=== PATIENT | female | born 1970 | race Caucasian/White ===

== ENCOUNTER 2024-10-26 16:39 | Emergency (ER) | payer OTHER, SELFPAY ==
[2024-10-26] VITALS (11 sets, daily range): BP systolic 124–156; BP diastolic 83–91; PULSE 80–98; RESP 18–25; TEMP 36.1; O2SAT 96–100; BMI 30.4
[2024-10-26 17:47] LABS: Adenovirus Not Detected (Not Detect); B. parapertussis Not Detected (Not Detecte); Bordetella pertussis Not Detected (Not Detect); Chlamydophila pneumoniae Not Detected (Not Detect); Coronavirus 229E Not Detected (Not Detect); Coronavirus HKU1 Not Detected (Not Detect); Coronavirus NL 63 Not Detected (Not Detect); Coronavirus OC43 Not Detected (Not Detect); Human Metapneumovirus Not Detected (Not Detect); Human Rhinovirus/Enterovirus Not Detected (Not Detect); Influenza A Not Detected (Not Detect); Influenza B Not Detected (Not Detect); Mycoplasma pneumoniae Not Detected (Not Detect); Parainfluenza Virus 1 Not Detected (Not Detect); Parainfluenza Virus 2 Not Detected (Not Detect); Parainfluenza Virus 3 Not Detected (Not Detect); Parainfluenza Virus 4 Not Detected (Not Detect); Respiratory Syncytial Virus Not Detected (Not Detect); SARS- CoV-2 Not Detected (Not Detecte)
--- NOTE | 2024-10-26 19:33 | ED_ITS ---
HPI - URI/Sore Throat General Chief Complaint: Upper Respiratory Symptoms Stated Complaint: coughing, SOB, getting worse Time Seen by Provider: 10/26/24 19:28 Source: patient Mode of arrival: Ambulatory History of Present Illness HPI Narrative: Patient is a 54-year-old female who is an active smoker has severe agoraphobia, does not leave the house presenting today with increasing shortness of breath. She reports that she has no longer able to lay down because she can not breathe. She reports that her lips turned blue. She feels like her legs are swelling. She denies any sort of chest pain. She is coughing little she generally does not feel well. She feels like her thyroid is also a more. She does not go to the doctors. She has been using an [id number] albuterol inhaler which he says was working but is no longer working. Related Data Previous Rx's Medication Instructions Recorded albuterol sulfate 90 mcg/actuation 2 puff inhalation Q4-6H PRN 10/26/24 aerosol inhaler shortness of breath or wheezing #8.5 grams prednisone 20 mg tablet 40 mg (2 x 20 mg) PO DAILY #10 tabs 10/26/24 Allergies Allergy/AdvReac Type Severity Reaction Status Date / Time codeine Allergy Intermediate Hives Verified 10/26/24 16:43 Patient History Social History Smoking Status: Current every day smoker Smoking Status: Current every day smoker tobacco type: cigarettes Exam Initial Vital Signs Initial Vital Signs: Vital Signs Temperature 96.9 F L 10/26/24 16:44 Pulse Rate 97 H 10/26/24 16:44 Respiratory Rate 18 10/26/24 16:44 Blood Pressure 156/86 H 10/26/24 16:44 Pulse Oximetry 96 10/26/24 16:44 Oxygen Delivery Method Room Air 10/26/24 16:44 GENERAL: Alert pleasant 54 year female [id number]-[id number] respiratory distress and in no acute distress. HEENT: Head atraumatic,EOMI, pupils reactive, face symmetric, moist mucous membranes NECK: Slight thyroid goiter CARDIOVASCULAR: Regular rate and rhythm without murmurs, rubs or gallops. RESPIRATORY: Decreased breath sounds bilateral obvious conversational dyspnea obvious orthopnea which does not improve with sitting up. Minimal peripheral edema ABDOMEN: Soft, nontender. Normoactive bowel sounds all 4 quadrants. No guarding or rebound. EXTREMITIES: Normal range of motion, no clubbing or edema. Neurovascularly intact NEUROLOGICAL: Alert and oriented x4.Normal gait and speech. Cranial nerves II through XII grossly intact. SKIN: Warm, dry, no laceration, no petechiae, no rashes or lesions. Course Orders Ordered: ED Orders 10/26/24 19:55 Complete Blood Count AUTO DIFF Stat Comprehensive Metabolic Panel Stat D Dimer Stat Lipase Stat NT-proBNP (BNP-Adult 18+) Stat PTT Partial Thromboplastin [place] Stat Prothrombin Time INR Stat TSH [Thyroid Stimulating Hormone] Stat Troponin & CK Cardiac Panel Stat Discontinued Medications Albuterol (Albuterol Hfa Prepack) 1 box MISC DIRECTED ONE Stop: 10/26/24 21:15 Albuterol/Ipratropium (Albuterol/Ipratropium 3 Ml Ampul) 3 ml INH NOW ONE Stop: 10/26/24 19:34 Last Admin: 10/26/24 19:46 Dose: 3 ml Documented By: MALORIE Methylprednisolone (Methylprednisolone 125 Mg/2 Ml Vial) 125 mg IV NOW ONE Stop: 10/26/24 19:34 Last Admin: 10/26/24 19:54 Dose: 125 mg Documented By: MPO Vital Signs Vital signs: Vital Signs - 8 hr 10/26/24 21:00 Pulse Rate 80 Respiratory Rate 18 Pulse Oximetry 97 MDM - URI/Sore Throat Lab Data 10/26/24 19:55 10/26/24 19:55 Labs: Lab Results 10/26/24 10/26/24 Range/Units 16:52 19:55 WBC 10.0 (4.5-11.0) X10^3/uL RBC 5.40 H (4.0-5.2) X10^6/uL Hgb 15.7 (12.0-16.0) g/dL Hct 47.0 H (36-46) % MCV 86.9 (80-100) fL MCH 29.0 (26-34) PG MCHC 33.4 (30-36) % RDW 14.0 (11.6-14.8) % Plt Count 301 (150-400) X10^3/uL Neut % (Auto) 63.4 (50-75) % Lymph % (Auto) 23.0 L (25-40) % [place] % (Auto) 5.2 (3-14) % Eos % (Auto) 7.1 H (2-4) % Baso % (Auto) 1.3 (0-2) % Neut # (Auto) 6300 (4951-3655) /uL Lymph # (Auto) 2300 (4744-6566) /uL [place] # (Auto) 500 (0-900) /uL Eos # (Auto) 700 H (0-450) /uL Baso # (Auto) 100 (0-100) /uL PT 11.8 (9.4-12.5) SECONDS INR 1.0 (0.9-1.3) APTT 35 (25.1-36.5) SECONDS D-Dimer 555 H (<500) ng/ml Sodium 138 (137-145) mmol/L Potassium 4.1 (3.4-5.1) mmol/L Chloride 110 H (98-107) mmol/L Carbon Dioxide 17 L (22-32) mmol/L BUN 13 (7-17) mg/dL Creatinine 1.01 (0.52-1.04) mg/dL Estimated GFR > 60 (>60) mL/min BUN/Creatinine Ratio 12.9 (6-22) Glucose 102 H (70-100) mg/dL Calcium 10.0 (8.4-10.2) mg/dL Total Bilirubin 0.8 (0.2-1.3) mg/dL AST 34 (14-36) IU/L ALT 29 (<35) IU/L Alkaline Phosphatase 57 (38-126) U/L Total Creatine Kinase 57 (30-135) U/L Troponin I < 0.012 (0.01-0.034) ng/mL NT-Pro-B Natriuret Pep 61 (<125) pg/mL Total Protein 8.3 H (6.3-8.2) g/dL Albumin 4.8 (3.5-5.0) g/dL Globulin 3.5 (1.7-4.1) g/dL Albumin/Globulin Ratio 1.4 (1.0-2.8) Lipase 71 (23-300) U/L TSH 2.00 (0.47-4.68) uIU/mL Chlamy pneumoniae PCR Not detected (Not Detect) Adenovirus (PCR) Not detected (Not Detect) B. pertussis DNA (PCR) Not detected (Not Detect) B.parapertussis DNA PCR Not detected (Not Detecte) Coronavirus OC43 (PCR) Not detected (Not Detect) Coronavirus HKU1 (PCR) Not detected (Not Detect) Coronavirus 229E (PCR) Not detected (Not Detect) SARS-CoV-2 (PCR) Not detected (Not Detecte) Coronavirus NL63 (PCR) Not detected (Not Detect) Human Metapneumovir PCR Not detected (Not Detect) Influenza Type A (PCR) Not detected (Not Detect) Influenza Type B (PCR) Not detected (Not Detect) M. pneumoniae (PCR) Not detected (Not Detect) Parainfluenza 1 (PCR) Not detected (Not Detect) Parainfluenza 2 (PCR) Not detected (Not Detect) Parainfluenza 3 (PCR) Not detected (Not Detect) Parainfluenza 4 (PCR) Not detected (Not Detect) RSV (PCR) Not detected (Not Detect) Entero/Rhino (PCR) Not detected (Not Detect) Imaging Data Chest x-ray: Radiologist's Impression: PROCEDURE: XR CHEST 1V INDICATIONS: short of breath TECHNIQUE: One view of the chest was acquired. COMPARISON: None. FINDINGS: Surgical changes and devices: None. Lungs and pleura: Lungs are clear. No pleural effusions or pneumothorax. Mediastinum: Mediastinal contours appear normal. Heart size is normal. Bones and chest wall: No suspicious bony lesions. Overlying soft tissues appear unremarkable. IMPRESSION: No acute cardiopulmonary abnormality is seen. Approved by: Noemi Linares M.D.,Ph.D. on 10/26/2024 at 19:59 ECG Data Attestation: I personally reviewed and interpreted this ECG as follows: Prior ECG tracings: not available for review Interpretation: Normal sinus rhythm rate 80 ID interval 148 QRS [address] depression in V 3 , lead [address] elevations no priors to compare MDM Narrative Medical decision making narrative: MDM CC: Shortness of breath Complicating co-morbidities: Severe agoraphobia does not leave the house Medical records reviewed: None Differential considered: Respiratory illness COPD exacerbation CHF acute coronary syndrome pulmonary embolism, anemia Exam documented above, pertinent findings include: Patient does not have conversational dyspnea but does have some obvious orthopnea no significant lower extremity edema Lab Test results independently reviewed as above. Pertinent findings: WBC 10.0 hemoglobin 15.7 hematocrit 47 D-dimer 555 Sodium 138 potassium 4.1 chloride 110 bicarb 17 BUN 13 creatinine 1.0 glucose 102 Troponin negative, BNP 61 Respiratory panel negative Independently reviewed EKG as above: Sinus rhythm some slight ST depression in non can coordinate leans Imaging studies independently reviewed: No acute process Treatments: Albuterol Solu-Medrol Re-evaluations: Patient feeling significantly better after albuterol feels like she can take a deep breath lung sounds are more clear Discussion: Patient is a 54-year-old female presenting today with increasing shortness of breath. She is having signs and symptoms concerning for CHF with positive orthopnea and exertional dyspnea. She has not hypoxic she does not appear grossly fluid overload. BNP is 61. Troponin negative. She is a smoker and improved with albuterol and Solu-Medrol. I suspect that this is more of a COPD exacerbation. She was worried about her thyroid goiter as well her TSH is 2.0. Pulmonary embolism was considered however with years score in D-dimer less than 1000 this is unlikely. Does not need chest CT at this time. [email or web address] Algorithm for Pulmonary Embolism (PE) from [employer] on 10/27/2024 All calculations should be rechecked by clinician prior to use RESULT SUMMARY: PE excluded YEARS algorithm rules out PE (0.43% with symptomatic VTE during 3-month follow- up) INPUTS: patient ?> 0 = No Clinical signs of DVT ?> 0 = No Hemoptysis ?> 0 = No PE most likely diagnosis ?> 0 = No D-dimer >=,000 ng/mL FEU ?> 0 = No Discharge Plan Departure Patient Disposition: Home Clinical Impression: Upper respiratory infection Instructions: DI for Acute Bronchitis Activity Restrictions/Additional Instructions: *You have been diagnosed with upper respiratory infection COPD *What to do: At this time it is advised that you decrease and stop smoking. No need for antibiotics at this time *Continue to take medications as directed Prednisone 40 mg once a day for 5 days Albuterol inhaler with spacer 1-2 puffs every 4 hours if needed for shortness of breath I do recommend taking it 30 minutes before bed as well *Follow up with your primary care provider in 2-3 days or call [phone] *Return to ER if you should have increasing shortness of breath chest pain swelling or any new, worsening or concerning symptoms Prescriptions: New prednisone 20 mg tablet 40 mg PO DAILY Qty: 10 0RF albuterol sulfate 90 mcg/actuation HFA aerosol inhaler 2 puff INHALATION Q4-6H PRN (Reason: shortness of breath or wheezing) Qty: 8.5 0RF Stand Alone Forms: Patient Portal/API/Survey
[2024-10-26] MEDS: ALBUTEROL/IPRATROPIUM 3 ML AMPUL INH (19:46)
[2024-10-26] MEDS: methylPREDNISolone 125 MG/2 ML VIAL IV (19:54)
--- NOTE | 2024-10-26 20:01 | EKG_ITS ---
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
[2024-10-26 20:04] LABS: Add Manual Diff / Slide Review NO; Basophils Absolute Auto 100 /uL (0-100); Basophils Percent Auto 1.3 % (0-2); Eosinophils Absolute Auto 700 /uL (0-450); Eosinophils Percent Auto 7.1 % (2-4); Hemoglobin 15.7 g/dL (12.0-16.0); Lymphocytes Absolute Auto 2300 /uL (1100-4500); Mean Corpuscular HGB Conc 33.4 % (30-36); Mean Corpuscular Volume 86.9 fL (80-100); Monocytes Absolute Auto 500 /uL (0-900); Monocytes Percent Auto 5.2 % (3-14); Neutrophils Absolute Auto 6300 /uL (1500-7000); Neutrophils Percent Auto 63.4 % (50-75); Platelet Count 301 X10^3/uL (150-400)
[2024-10-26 20:08] LABS: Prothrombin Time 11.8 SECONDS (9.4-12.5)
[2024-10-26 20:10] LABS: D Dimer 555 ng/ml (<500)
[2024-10-26 20:11] LABS: PTT Partial Thromboplastin Tim 35 SECONDS (25.1-36.5)
[2024-10-26 20:13] LABS: Alanine Aminotransferase 29 IU/L (<35); Albumin 4.8 g/dL (3.5-5.0); Albumin Globulin Ratio 1.4 (1.0-2.8); Alkaline Phosphatase 57 U/L (38-126); Aspartate Aminotransferase 34 IU/L (14-36); BUN Creatinine Ratio 12.9 (6-22); Bilirubin Total 0.8 mg/dL (0.2-1.3); Blood Urea Nitrogen 13 mg/dL (7-17); Carbon Dioxide 17 mmol/L (22-32); Chloride 110 mmol/L (98-107); Creatine Kinase 57 U/L (30-135); Estimated Glomerular Filt Rate > 60 mL/min (>60); Globulin 3.5 g/dL (1.7-4.1); Glucose 102 mg/dL (70-100); HEMOLYSIS < 15 (0-50); Lipase 71 U/L (23-300); Potassium 4.1 mmol/L (3.4-5.1); Sodium 138 mmol/L (137-145); Total Protein 8.3 g/dL (6.3-8.2)
[2024-10-26 20:25] LABS: NT-proBNP (BNP-Adult 18+) 61 pg/mL (<125); Troponin I < 0.012 ng/mL (0.01-0.034)
== END 2024-10-26 21:26 | disposition home or self-care (01) ==
PROVIDERS: Emergency Medicine; Emergency Provider Emergency Medicine
DX: J06.9 Acute upper respiratory infection, unspecified (principal); J44.9 Chronic obstructive pulmonary disease, unspecified; F40.00 Agoraphobia, unspecified; F17.200 Nicotine dependence, unspecified, uncomplicated
CPT/HCPCS: 36415; 71045; 80053; 82550; 83690; 83880; 84443; 84484; 85025; 85379; 85610; 85730; 87633; 93005; 94640; 96374; 99284; J2919

== ENCOUNTER 2024-11-11 19:20 | Emergency (ER) | payer OTHER, SELFPAY ==
[2024-11-11] VITALS (11 sets, daily range): BP systolic 116–165; BP diastolic 64–102; PULSE 98–130; RESP 20–32; TEMP 36.5; O2SAT 92–99; BMI 29.5
--- NOTE | 2024-11-11 19:26 | EKG_ITS ---
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
--- NOTE | 2024-11-11 19:26 | DI.RAD.S_ITS ---
PROCEDURE: XR CHEST 1V INDICATIONS: Shortness of breath TECHNIQUE: One view of the chest was acquired. COMPARISON: [facility], , XR CHEST 1V, 10/26/2024, 19:33. FINDINGS: Surgical changes and devices: None. Lungs and pleura: Lungs are clear. No pleural effusions or pneumothorax. Mediastinum: Mediastinal contours appear normal. Heart size is normal. Bones and chest wall: No suspicious bony lesions. Overlying soft tissues appear unremarkable. IMPRESSION: No acute cardiopulmonary pathology. Dictated by: Particio Keith M.D. on 11/11/2024 at 20:43 Approved by: Patricio Keith M.D. on 11/11/2024 at 20:43
[2024-11-11] MEDS: ALBUTEROL/IPRATROPIUM 3 ML AMPUL INH (19:51)
[2024-11-11] MEDS: ALBUTEROL 2.5 MG/3 ML NEB (ADULT) 10 MG INH (19:53)
[2024-11-11 19:58] LABS: Add Manual Diff / Slide Review NO; Basophils Absolute Auto 0 /uL (0-100); Basophils Percent Auto 0.3 % (0-2); Eosinophils Absolute Auto 400 /uL (0-450); Eosinophils Percent Auto 2.7 % (2-4); Hematocrit 44.3 % (36-46); Hemoglobin 14.7 g/dL (12.0-16.0); Lymphocytes Absolute Auto 3000 /uL (1100-4500); Lymphocytes Percent Auto 20.4 % (25-40); Mean Corpuscular HGB Conc 33.2 % (30-36); Mean Corpuscular Hemoglobin 29.2 PG (26-34); Mean Corpuscular Volume 87.9 fL (80-100); Monocytes Absolute Auto 700 /uL (0-900); Monocytes Percent Auto 5.1 % (3-14); Neutrophils Absolute Auto 10400 /uL (1500-7000); Neutrophils Percent Auto 71.5 % (50-75); Platelet Count 296 X10^3/uL (150-400); Red Blood Cell Count 5.04 X10^6/uL (4.0-5.2); White Blood Cell Count 14.6 X10^3/uL (4.5-11.0)
[2024-11-11 20:06] LABS: Prothrombin Time 10.8 SECONDS (9.4-12.5)
[2024-11-11 20:09] LABS: Lactate (Lactic Acid) 1.1 mmol/L (0.7-2.1)
[2024-11-11 20:10] LABS: Alanine Aminotransferase 21 IU/L (<35); Albumin 4.5 g/dL (3.5-5.0); Albumin Globulin Ratio 1.5 (1.0-2.8); Alkaline Phosphatase 67 U/L (38-126); Aspartate Aminotransferase 26 IU/L (14-36); Bilirubin Total 0.5 mg/dL (0.2-1.3); Blood Urea Nitrogen 17 mg/dL (7-17); Calcium 9.9 mg/dL (8.4-10.2); Carbon Dioxide 19 mmol/L (22-32); Chloride 109 mmol/L (98-107); Estimated Glomerular Filt Rate 57 mL/min (>60); Globulin 3.1 g/dL (1.7-4.1); Glucose 120 mg/dL (70-100); HEMOLYSIS < 15 (0-50); Potassium 3.5 mmol/L (3.4-5.1); Sodium 139 mmol/L (137-145); Total Protein 7.6 g/dL (6.3-8.2)
[2024-11-11 20:22] LABS: NT-proBNP (BNP-Adult 18+) 146 pg/mL (<125); Troponin I < 0.012 ng/mL (0.01-0.034)
--- NOTE | 2024-11-11 20:47 | ED_ITS ---
HPI - SOB/Dyspnea General Chief Complaint: Shortness of Breath/Dyspnea Stated Complaint: difficulty breathing Time Seen by Provider: 11/11/24 19:27 Source: patient Mode of arrival: Ambulatory History of Present Illness HPI Narrative: 54-year-old female with history of tobacco abuse presents by private vehicle from home for shortness of breath. Patient states that she was at home when all of a sudden she had a coughing fit and ?my lungs closed and filled with fluid?. On arrival patient was tachycardic, tachypneic, saturating 92% on room air. Patient states that the same thing happened to her back in October. She states that she was told that she had COPD. She was discharged on steroids and an inhaler, and states that she was not had any issues with breathing since her discharge from the ER. 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 She has not seen a primary care doctor in many years. Related Data Previous Rx's Medication Instructions Recorded albuterol sulfate 90 mcg/actuation 2 puff inhalation Q4-6H PRN 10/26/24 aerosol inhaler shortness of breath or wheezing #8.5 grams prednisone 20 mg tablet 40 mg (2 x 20 mg) PO DAILY #10 tabs 10/26/24 albuterol sulfate 90 mcg/actuation 2 inh inhalation Q4-6H PRN 11/11/24 breath activated powder shortness of breath or wheezing #1 inhaler,sensor ea prednisone 20 mg tablet 40 mg (2 x 20 mg) PO DAILY #10 tabs 11/11/24 Allergies Allergy/AdvReac Type Severity Reaction Status Date / Time codeine Allergy Intermediate Hives Verified 11/11/24 19:32 Patient History Social History Smoking Status: Current every day smoker Smoking Status: Current every day smoker tobacco type: cigarettes Exam Initial Vital Signs Initial Vital Signs: Vital Signs Temperature 97.7 F 11/11/24 19:21 Pulse Rate 130 H 11/11/24 19:21 Respiratory Rate 30 H 11/11/24 19:21 Blood Pressure 165/102 H 11/11/24 19:21 Pulse Oximetry 92 11/11/24 19:21 Oxygen Delivery Method Room Air 11/11/24 19:21 Const: Awake, alert, anxious, uncomfortable Cardiac: Tachycardia, regular rhythm RESP: Tachypneic, increased work of breathing, very restricted air movement with wheezing Skin: Warm, Dry, intact, no rashes Neuro: AO x3, CN II-XII grossly intact, moves all extremities Course Orders Ordered: Discontinued Medications Albuterol (Albuterol 2.5 Mg/3 Ml Neb (Adult)) 10 mg INH NOW ONE Stop: 11/11/24 19:50 Last Admin: 11/11/24 19:53 Dose: 10 mg Documented By: Albuterol (Albuterol Hfa Prepack) 1 box MISC DIRECTED ONE Stop: 11/11/24 23:14 Last Admin: 11/11/24 23:22 Dose: 1 box Documented By: IOANA Albuterol/Ipratropium (Albuterol/Ipratropium 3 Ml Ampul) 3 ml INH NOW ONE Stop: 11/11/24 19:49 Last Admin: 11/11/24 19:51 Dose: 3 ml Documented By: Vital Signs Vital signs: Vital Signs - 8 hr 11/11/24 19:21 11/11/24 19:35 11/11/24 19:39 Temperature 97.7 F Pulse Rate 130 H 103 H 104 H Respiratory Rate 30 H 26 H Blood Pressure 165/102 H 165/102 H Pulse Oximetry 92 98 97 Oxygen Delivery Method Room Air Nasal Cannula Nasal Cannula Oxygen Flow Rate 2 2 11/11/24 19:43 11/11/24 19:43 11/11/24 20:00 Temperature Pulse Rate 106 H 98 H Respiratory Rate 26 H 26 H Blood Pressure 143/88 H Pulse Oximetry 97 98 Oxygen Delivery Method Nasal Cannula Nasal Cannula Oxygen Flow Rate 2 2 11/11/24 20:00 11/11/24 20:30 11/11/24 20:30 Temperature Pulse Rate 100 H Respiratory Rate 26 H Blood Pressure 130/64 116/72 Pulse Oximetry 99 Oxygen Delivery Method Room Air Oxygen Flow Rate 11/11/24 21:00 11/11/24 21:00 11/11/24 21:30 Temperature Pulse Rate 101 H Respiratory Rate 23 Blood Pressure 117/71 164/89 H Pulse Oximetry 96 Oxygen Delivery Method Room Air Oxygen Flow Rate 11/11/24 21:30 11/11/24 22:00 11/11/24 22:00 Temperature Pulse Rate 128 H 100 H Respiratory Rate 32 H 30 H Blood Pressure 129/75 Pulse Oximetry 96 94 Oxygen Delivery Method Room Air Room Air Oxygen Flow Rate MDM - SOB/Dyspnea Differential Diagnosis Differential diagnosis: Likely acute exacerbation of chronic obstructive airways disease, congestive heart failure and community acquired pneumonia Lab Data 11/11/24 19:30 11/11/24 19:30 Labs: Lab Results 11/11/24 Range/Units 19:30 WBC 14.6 H (4.5-11.0) X10^3/uL RBC 5.04 (4.0-5.2) X10^6/uL Hgb 14.7 (12.0-16.0) g/dL Hct 44.3 (36-46) % MCV 87.9 (80-100) fL MCH 29.2 (26-34) PG MCHC 33.2 (30-36) % RDW 14.0 (11.6-14.8) % Plt Count 296 (150-400) X10^3/uL Neut % (Auto) 71.5 (50-75) % Lymph % (Auto) 20.4 L (25-40) % [place] % (Auto) 5.1 (3-14) % Eos % (Auto) 2.7 (2-4) % Baso % (Auto) 0.3 (0-2) % Neut # (Auto) 35313 H (8345-7467) /uL Lymph # (Auto) 3000 (9563-5663) /uL [place] # (Auto) 700 (0-900) /uL Eos # (Auto) 400 (0-450) /uL Baso # (Auto) 0 (0-100) /uL PT 10.8 (9.4-12.5) SECONDS INR 1.0 (0.9-1.3) Sodium 139 (137-145) mmol/L Potassium 3.5 (3.4-5.1) mmol/L Chloride 109 H (98-107) mmol/L Carbon Dioxide 19 L (22-32) mmol/L BUN 17 (7-17) mg/dL Creatinine 1.13 H (0.52-1.04) mg/dL Estimated GFR 57 L (>60) mL/min BUN/Creatinine Ratio 15.0 (6-22) Glucose 120 H (70-100) mg/dL Lactate 1.1 (0.7-2.1) mmol/L Calcium 9.9 (8.4-10.2) mg/dL Total Bilirubin 0.5 (0.2-1.3) mg/dL AST 26 (14-36) IU/L ALT 21 (<35) IU/L Alkaline Phosphatase 67 (38-126) U/L Troponin I < 0.012 (0.01-0.034) ng/mL NT-Pro-B Natriuret Pep 146 H (<125) pg/mL Total Protein 7.6 (6.3-8.2) g/dL Albumin 4.5 (3.5-5.0) g/dL Globulin 3.1 (1.7-4.1) g/dL Albumin/Globulin Ratio 1.5 (1.0-2.8) Imaging Data Chest x-ray: Radiologist's Impression: PROCEDURE: XR CHEST 1V INDICATIONS: Shortness of breath TECHNIQUE: One view of the chest was acquired. COMPARISON: [facility], , XR CHEST 1V, 10/26/2024, 19:33. FINDINGS: Surgical changes and devices: None. Lungs and pleura: Lungs are clear. No pleural effusions or pneumothorax. Mediastinum: Mediastinal contours appear normal. Heart size is normal. Bones and chest wall: No suspicious bony lesions. Overlying soft tissues appear unremarkable. IMPRESSION: No acute cardiopulmonary pathology. Dictated by: Patricio Keith M.D. on 11/11/2024 at 20:43 Approved by: Patricio Keith M.D. on 11/11/2024 at 20:43 [facility] Narrative Medical decision making narrative: Shortness of breath and wheezing. States that she was told that she would COPD in the past but has not followed up with primary care or pulmonology. Patient initially in quite some distress on arrival. Respiratory therapy paged to evaluate the patient. Nebulizers administered. Patient reassessed after nebulizer administration. She states that she feels markedly better and her work of breathing has significantly improved. Repeat pulmonary exam shows that there are still trace and expiratory wheezes in the upper lung [place], however she has increased air movement and decreased work of breathing. Plan to observe patient for recurrence of wheezing or shortness of breath. Patient monitored for several hours. Ambulatory pulse ox stable on room air. She continues to state that her breathing is improved and she is eager to go home. She was out of her inhaler and is requesting a refill. Steroids, albuterol inhaler sent to pharmacy of choice. Patient was counseled on the importance of pulmonology follow up and a referral number was provided. Discharge Plan Departure Patient Disposition: Home Clinical Impression: Asthma exacerbation in COPD Instructions: DI for Chronic Obstructive Pulmonary Disease Activity Restrictions/Additional Instructions: Take the steroids for the next 5 days as prescribed. Use the inhaler as needed for shortness of breath. Since this is the 2nd time this has happened in his short. I do recommend that you follow up with a fire dispatcher. A referral number has been provided. Prescriptions: New albuterol sulfate 90 mcg/actuation aero powdr breath act w/sensor 2 inh inhalation Q4-6H PRN (Reason: shortness of breath or wheezing) Qty: 1 0RF prednisone 20 mg tablet 40 mg PO DAILY Qty: 10 0RF No Action prednisone 20 mg tablet 40 mg PO DAILY Qty: 10 0RF albuterol sulfate 90 mcg/actuation HFA aerosol inhaler 2 puff INHALATION Q4-6H PRN (Reason: shortness of breath or wheezing) Qty: 8.5 0RF Referrals: Marco Robins MD [Physician] - Stand Alone Forms: Patient Portal/API/Survey
--- NOTE | 2024-11-11 22:22 | PC.NURSE ---
Ambulation trial with patient on room air. Patient ambulated around the unit 2x with O2 sats at 93% RA. Dr. Cuong specner.
[2024-11-11] MEDS: ALBUTEROL HFA PREPACK 1 BOX MISC (23:22)
== END 2024-11-11 23:27 | disposition home or self-care (01) ==
PROVIDERS: Emergency Provider Emergency Medicine
DX: J45.901 Unspecified asthma with (acute) exacerbation (principal); J44.89 Other specified chronic obstructive pulmonary disease; F17.200 Nicotine dependence, unspecified, uncomplicated
CPT/HCPCS: 36415; 71045; 80053; 83605; 83880; 84484; 85025; 85610; 93005; 93010; 94640; 99284; J7613

== ENCOUNTER 2024-11-30 08:40 | Emergency (ER) | payer OTHER, SELFPAY ==
[2024-11-30] VITALS (10 sets, daily range): BP systolic 132–148; BP diastolic 66–87; PULSE 98–122; RESP 18–28; TEMP 36.9; O2SAT 92–98; BMI 31.3
--- NOTE | 2024-11-30 08:47 | ED.SOB ---
HPI - SOB/Dyspnea General Chief Complaint: Shortness of Breath/Dyspnea Stated Complaint: Wheezing Time Seen by Provider: 11/30/24 08:44 History of Present Illness HPI Narrative: 54-year-old female presents by EMS from home for shortness of breath. Patient was history of tobacco abuse, presumptive diagnosis of COPD. She has been seen twice in the last month for shortness of breath, 1st time 10/26 and then 2nd time by myself 11/11. Patient improved after nebulizers and steroids and has been instructed to follow up with primary care doctor's and pulmonology, however she states that she was not been successful in establishing a follow up appointment. She was out of her albuterol. Still actively smoking. EMS reports that when they arrived the patient was already on oxygen and they do not know her room air sats. Patient has extensive bilateral wheezing on exam. Related Data Previous Rx's Medication Instructions Recorded albuterol sulfate 90 mcg/actuation 2 puff inhalation Q4-6H PRN 10/26/24 aerosol inhaler shortness of breath or wheezing #8.5 grams prednisone 20 mg tablet 40 mg (2 x 20 mg) PO DAILY #10 tabs 10/26/24 albuterol sulfate 90 mcg/actuation 2 inh inhalation Q4-6H PRN 11/11/24 breath activated powder shortness of breath or wheezing #1 inhaler,sensor ea prednisone 20 mg tablet 40 mg (2 x 20 mg) PO DAILY #10 tabs 11/11/24 albuterol sulfate 90 mcg/actuation 1 inh inhalation Q4-6H PRN 11/30/24 breath activated powder shortness of breath or wheezing #1 inhaler,sensor ea prednisone 20 mg tablet 40 mg (2 x 20 mg) PO DAILY #10 tabs 11/30/24 Allergies Allergy/AdvReac Type Severity Reaction Status Date / Time codeine Allergy Intermediate Hives Verified 11/11/24 19:32 Patient History Social History Smoking Status: Current every day smoker Smoking Status: Current every day smoker tobacco type: cigarettes Exam Initial Vital Signs Initial Vital Signs: Vital Signs Pulse Rate 113 H 11/30/24 08:43 Pulse Oximetry 92 11/30/24 08:43 Const: Awake, alert, uncomfortable, nontoxic appearing Cardiac: Tachycardia, regular rhythm RESP: Loud, diffuse expiratory wheezes, speaking in complete sentences without dyspnea MSK: No edema, full range of motion, pulses equal Skin: Warm, Dry, intact, no rashes Neuro: AO x3, CN II-XII grossly intact, moves all extremities Course Orders Ordered: ED Orders 11/30/24 08:46 Chest [XR chest 1V] Stat EKG-12 Lead Stat 11/30/24 08:47 CBC Auto Diff [Complete Blood Count AUTO DIFF] Stat CMP [Comprehensive Metabolic Panel] Stat Covid-19 + FLU A/B + RSV - PCR Stat PT [Prothrombin Time INR] Stat Discontinued Medications Albuterol/Ipratropium (Albuterol/Ipratropium 3 Ml Ampul) 9 ml INH NOW ONE Stop: 11/30/24 08:47 Last Admin: 11/30/24 08:58 Dose: 9 ml Documented By: KELLY Methylprednisolone (Methylprednisolone 125 Mg/2 Ml Vial) 125 mg IV NOW ONE Stop: 11/30/24 08:47 Last Admin: 11/30/24 09:17 Dose: 125 mg Documented By: SHIRA Vital Signs Vital signs: Vital Signs - 8 hr 11/30/24 08:43 11/30/24 08:44 11/30/24 08:44 Temperature Pulse Rate 113 H 122 H Respiratory Rate Blood Pressure 132/87 Pulse Oximetry 92 98 Oxygen Delivery Method Oxygen Flow Rate Fraction of Inspired Oxygen 11/30/24 08:58 11/30/24 08:59 11/30/24 09:00 Temperature 98.4 F Pulse Rate 110 H 111 H 112 H Respiratory Rate 26 H 28 H 22 Blood Pressure 132/87 Pulse Oximetry 93 95 97 Oxygen Delivery Method Room Air Room Air Oxygen Flow Rate 0 Fraction of Inspired Oxygen 21 11/30/24 09:30 11/30/24 09:30 11/30/24 10:00 Temperature Pulse Rate 109 H 104 H Respiratory Rate 23 Blood Pressure 132/72 Pulse Oximetry 98 98 Oxygen Delivery Method Oxygen Flow Rate Fraction of Inspired Oxygen 11/30/24 10:00 11/30/24 10:30 11/30/24 10:45 Temperature Pulse Rate 100 H Respiratory Rate Blood Pressure 133/66 148/85 H Pulse Oximetry 96 Oxygen Delivery Method Oxygen Flow Rate Fraction of Inspired Oxygen 11/30/24 10:45 11/30/24 11:00 11/30/24 11:00 Temperature Pulse Rate 103 H 98 H Respiratory Rate 18 22 Blood Pressure 144/84 H Pulse Oximetry 97 96 Oxygen Delivery Method Room Air Oxygen Flow Rate Fraction of Inspired Oxygen MDM - SOB/Dyspnea Differential Diagnosis Differential diagnosis: Likely acute exacerbation of chronic obstructive airways disease, congestive heart failure and community acquired pneumonia Lab Data 11/30/24 08:47 11/30/24 08:47 Labs: Lab Results 11/30/24 Range/Units 08:47 WBC 19.8 H (4.5-11.0) X10^3/uL RBC 5.02 (4.0-5.2) X10^6/uL Hgb 14.5 (12.0-16.0) g/dL Hct 43.5 (36-46) % MCV 86.5 (80-100) fL MCH 28.9 (26-34) PG MCHC 33.4 (30-36) % RDW 14.0 (11.6-14.8) % Plt Count 274 (150-400) X10^3/uL Neut % (Auto) 79.4 H (50-75) % Lymph % (Auto) 13.0 L (25-40) % [place] % (Auto) 5.3 (3-14) % Eos % (Auto) 1.7 L (2-4) % Baso % (Auto) 0.6 (0-2) % Neut # (Auto) 87885 H (9097-3533) /uL Lymph # (Auto) 2600 (7461-1274) /uL [place] # (Auto) 1100 H (0-900) /uL Eos # (Auto) 300 (0-450) /uL Baso # (Auto) 100 (0-100) /uL PT 11.3 (9.4-12.5) SECONDS INR 1.0 (0.9-1.3) Sodium 138 (137-145) mmol/L Potassium 3.4 (3.4-5.1) mmol/L Chloride 109 H (98-107) mmol/L Carbon Dioxide 18 L (22-32) mmol/L BUN 14 (7-17) mg/dL Creatinine 1.17 H (0.52-1.04) mg/dL Estimated GFR 55 L (>60) mL/min BUN/Creatinine Ratio 12.0 (6-22) Glucose 154 H (70-100) mg/dL Calcium 10.4 H (8.4-10.2) mg/dL Total Bilirubin 0.5 (0.2-1.3) mg/dL AST 29 (14-36) IU/L ALT 26 (<35) IU/L Alkaline Phosphatase 65 (38-126) U/L Total Protein 7.8 (6.3-8.2) g/dL Albumin 4.5 (3.5-5.0) g/dL Globulin 3.3 (1.7-4.1) g/dL Albumin/Globulin Ratio 1.4 (1.0-2.8) SARS-CoV-2 (PCR) Negative (Negative) Influenza A (RT-PCR) Flu a negative (NEGATIVE) Influenza B (RT-PCR) Flu b negative (NEGATIVE) RSV (PCR) Negative (Negative) Point of Care Testing Glucose POC 142 Imaging Data Chest x-ray: Radiologist's Impression: PROCEDURE: XR CHEST 1V INDICATIONS: DYSPNEA TECHNIQUE: One view of the chest was acquired. COMPARISON: [facility], , XR CHEST 1V, 11/11/2024, 19:43. [facility], , XR CHEST 1V, 10/26/2024, 19:33. FINDINGS: Surgical changes and devices: None. Lungs and pleura: Lungs are clear. No pleural effusions or pneumothorax. Mediastinum: Mediastinal contours appear normal. Heart size is normal. Bones and chest wall: No suspicious bony lesions. Overlying soft tissues appear unremarkable. IMPRESSION: No acute cardiothoracic process. Dictated by: Alphonso Higginbotham M.D. on 11/30/2024 at 8:59 Approved by: Alphonso Higginbotham M.D. on 11/30/2024 at 9:00 ECG Data Interpretation: Sinus tachycardia at 110 beats per minute. Normal RI, no ST T wave changes, no STEMI MDM Narrative Medical decision making narrative: Shortness of breath and extensive wheezing. Patient continues to smoke, likely has COPD but has not followed up with pulmonology. Ran out of albuterol inhaler at home. On room air patient seems to be maintaining saturations of 98%. Respiratory therapy paged to administer nebulizers. Solu-Medrol ordered. Laboratory work reviewed. WBC count 19.8, hemoglobin 14.5, platelet count 274, sodium 138, potassium 3.4, creatinine 1.17, normal liver enzymes. WBC count possibly secondary to steroid use, patient has had several rounds of prednisone in the last month. There is no obvious source of infection for WBC count otherwise. Chest x-ray negative for acute findings. Patient's pulmonary exam significantly improved after DuoNeb treatments. Patient ambulatory throughout the emergency department with stable oxygen saturations. She states that she was feeling much better and is ready to go home. Patient was again counseled on the importance of following up with Pulmonary and primary care. Patient was already been given referrals and is in the process of trying to establish care with these specialists. Additional prednisone and albuterol inhaler sent to pharmacy of choice. Discharge Plan Departure Patient Disposition: Home Clinical Impression: Acute dyspnea, COPD (chronic obstructive pulmonary disease) Instructions: DI for Chronic Obstructive Pulmonary Disease Activity Restrictions/Additional Instructions: Your laboratory work and chest x-ray showed no sign of pneumonia. Continue to work on getting a primary and pulmonology follow up. Medications has been sent to your pharmacy. Prescriptions: New prednisone 20 mg tablet 40 mg PO DAILY Qty: 10 0RF albuterol sulfate 90 mcg/actuation aero powdr breath act w/sensor 1 inh inhalation Q4-6H PRN (Reason: shortness of breath or wheezing) Qty: 1 1RF No Action albuterol sulfate 90 mcg/actuation aero powdr breath act w/sensor 2 inh inhalation Q4-6H PRN (Reason: shortness of breath or wheezing) Qty: 1 0RF prednisone 20 mg tablet 40 mg PO DAILY Qty: 10 0RF prednisone 20 mg tablet 40 mg PO DAILY Qty: 10 0RF albuterol sulfate 90 mcg/actuation HFA aerosol inhaler 2 puff INHALATION Q4-6H PRN (Reason: shortness of breath or wheezing) Qty: 8.5 0RF Stand Alone Forms: Patient Portal/API/Survey
[2024-11-30 08:57] LABS: Add Manual Diff / Slide Review NO; Basophils Absolute Auto 100 /uL (0-100); Basophils Percent Auto 0.6 % (0-2); Eosinophils Absolute Auto 300 /uL (0-450); Eosinophils Percent Auto 1.7 % (2-4); Hematocrit 43.5 % (36-46); Hemoglobin 14.5 g/dL (12.0-16.0); Lymphocytes Absolute Auto 2600 /uL (1100-4500); Mean Corpuscular HGB Conc 33.4 % (30-36); Mean Corpuscular Hemoglobin 28.9 PG (26-34); Mean Corpuscular Volume 86.5 fL (80-100); Monocytes Absolute Auto 1100 /uL (0-900); Monocytes Percent Auto 5.3 % (3-14); Neutrophils Absolute Auto 15700 /uL (1500-7000); Neutrophils Percent Auto 79.4 % (50-75); Platelet Count 274 X10^3/uL (150-400); Red Blood Cell Count 5.02 X10^6/uL (4.0-5.2); White Blood Cell Count 19.8 X10^3/uL (4.5-11.0)
[2024-11-30] MEDS: ALBUTEROL/IPRATROPIUM 3 ML AMPUL 9 ML INH (08:58)
--- NOTE | 2024-11-30 08:59 | EKG_ITS ---
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
[2024-11-30 09:02] LABS: Prothrombin Time 11.3 SECONDS (9.4-12.5)
[2024-11-30 09:06] LABS: Alanine Aminotransferase 26 IU/L (<35); Albumin 4.5 g/dL (3.5-5.0); Albumin Globulin Ratio 1.4 (1.0-2.8); Alkaline Phosphatase 65 U/L (38-126); Aspartate Aminotransferase 29 IU/L (14-36); Bilirubin Total 0.5 mg/dL (0.2-1.3); Blood Urea Nitrogen 14 mg/dL (7-17); Calcium 10.4 mg/dL (8.4-10.2); Carbon Dioxide 18 mmol/L (22-32); Chloride 109 mmol/L (98-107); Estimated Glomerular Filt Rate 55 mL/min (>60); Globulin 3.3 g/dL (1.7-4.1); Glucose 154 mg/dL (70-100); HEMOLYSIS 30 (0-50); Potassium 3.4 mmol/L (3.4-5.1); Sodium 138 mmol/L (137-145); Total Protein 7.8 g/dL (6.3-8.2)
[2024-11-30] MEDS: methylPREDNISolone 125 MG/2 ML VIAL IV (09:17)
[2024-11-30 09:41] LABS: Influenza A - CEPHEID Flu A NEGATIVE (NEGATIVE); Influenza B - CEPHEID Flu B NEGATIVE (NEGATIVE); Respiratory Syncytial Virus Negative (Negative)
[2024-11-30 09:45] LABS: COVID-19 CEPHEID 4-PLEX PCR Negative (Negative)
--- NOTE | 2024-12-02 13:32 | PC.NURSE ---
attempted to help patient make an appointment with [facility]. left a messge [phone] Robins or another associate. Pt is concerned if they take her [facility] plan. I called patient back to inform her that I left a message on the machine. pt phone number is [phone]. Pt verbalized an understanding. She will follow up with the office as well.
== END 2024-11-30 11:19 | disposition home or self-care (01) ==
PROVIDERS: Emergency Provider Emergency Medicine
DX: R06.00 Dyspnea, unspecified (principal); R00.0 Tachycardia, unspecified; Z87.891 Personal history of nicotine dependence; J44.9 Chronic obstructive pulmonary disease, unspecified
CPT/HCPCS: 0241U; 36415; 71045; 80053; 85025; 85610; 93005; 94640; 96374; 99284; J2919

== ENCOUNTER 2024-12-13 16:47 | Emergency (ER) | payer OTHER, SELFPAY ==
[2024-12-13] VITALS (13 sets, daily range): BP systolic 111–139; BP diastolic 62–88; PULSE 88–111; RESP 15–28; TEMP 32–36.3; O2SAT 95–99
--- NOTE | 2024-12-13 16:57 | EKG_ITS ---
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
--- NOTE | 2024-12-13 16:57 | DI.RAD.S_ITS ---
PROCEDURE: XR CHEST 1V INDICATIONS: Shortness of breath TECHNIQUE: One view of the chest was acquired. COMPARISON: [facility], CR, XR CHEST 1V, 11/30/2024, 8:45. FINDINGS: Surgical changes and devices: None. Lungs and pleura: Lungs are clear. No pleural effusions or pneumothorax. Mediastinum: Mediastinal contours appear normal. Heart size is normal. Bones and chest wall: No suspicious bony lesions. Overlying soft tissues appear unremarkable. IMPRESSION: No acute cardiopulmonary abnormality is seen. Dictated by: Smith Chu M.D. on 12/13/2024 at 16:08 Approved by: Smith Chu M.D. on 12/13/2024 at 16:09
--- NOTE | 2024-12-13 16:59 | ED.SOB ---
HPI - SOB/Dyspnea <Lauren Meyer, DO - Last Filed: 12/17/24 18:21> General Chief Complaint: Shortness of Breath/Dyspnea Stated Complaint: SOB Time Seen by Provider: 12/13/24 16:57 Source: patient, EMS, RN notes reviewed and old records reviewed Mode of arrival: EMS Limitations: no limitations History of Present Illness HPI Narrative: 54-year-old female history of tobacco abuse, presumed COPD but states she is seen pulmonology who found nothing wrong was brought in by EMS for shortness of breath. Patient states started having issues earlier today was using inhaler regularly up to 10 times today without any improvement. EMS found her tripoding in her driveway in the low 80s at room air, tachypneic and tachycardic. Patient received Solu-Medrol 125 mg in the field, magnesium 2 DuoNebs initially and then was moved over to CPAP and these seemed to improve. EMS states her work of breathing has significantly improved patient indicates this as well. Patient denies any fevers cold cough or congestion recently. Denies any chest pain or pressure, does feel quite short of breath but somewhat improved after interventions. No nausea or vomiting. No issues with bowel movements, no urinary changes. No new swelling of extremities. Patient states not on any daily medications other than albuterol as needed. Denies any recent surgeries. Still uses tobacco daily, denies regular alcohol, no recreational drugs. Related Data Previous Rx's Medication Instructions Recorded albuterol sulfate 90 mcg/actuation 1 inh inhalation Q4-6H PRN 11/30/24 breath activated powder shortness of breath or wheezing #1 inhaler,sensor ea nicotine 7 mg/24 hr daily 1 patch transdermal Q24H #14 ea 12/11/24 transdermal patch umeclidinium 62.5 mcg-vilanterol 1 inh inhalation DAILY #60 ea 12/11/24 25 mcg/actuation powdr for inhalation (Anoro Ellipta) varenicline tartrate 0.5 mg (11)-1 See Rx Instructions PO PER PKG DIR 12/11/24 mg (42) tablets in a dose pack #53 ea (Chantix Starting Month Box) doxycycline hyclate 100 mg tablet 100 mg PO Q12H 5 days #10 tabs 12/13/24 prednisone 20 mg tablet 40 mg (2 x 20 mg) PO BID 5 days 12/13/24 #20 tabs Allergies Allergy/AdvReac Type Severity Reaction Status Date / Time codeine Allergy Intermediate Hives Verified 12/11/24 07:43 Review of Systems <Lauren Meyer DO - Last Filed: 12/17/24 18:21> Review of Systems ROS Unobtainable: All systems reviewed & are unremarkable except as noted in HPI and below Patient History <Lauren Meyer DO - Last Filed: 12/17/24 18:21> Social History Smoking Status: Current every day smoker Smoking Status: Current every day smoker tobacco type: cigarettes Exam <aLuren Meyer DO - Last Filed: 12/17/24 18:21> Narrative Exam Narrative: GENERAL: Alert and oriented x three, obese female in moderate distress. No diaphoresis. HEENT: Head normocephalic, atraumatic, EOMI, pupils reactive, face symmetric, moist mucous membranes NECK: Supple, full range of motion CARDIOVASCULAR: Regular rate and rhythm without murmurs, rubs or gallops. RESPIRATORY: Breath sounds equal bilaterally, patient has wheeze, sounds quite tight, mild tachypnea, no accessory muscle use. Patient arrived on CPAP from EMS and was transitioned over to our BiPAP. ABDOMEN: Soft, nontender. Normoactive bowel sounds all 4 quadrants. No guarding or rebound, rigidity, no mass : No CVA tenderness EXTREMITIES: Normal range of motion, no clubbing or edema. Neurovascularly intact NEUROLOGICAL: Cranial nerves II through XII grossly intact. Moving all extremities SKIN: Warm, dry, no petechiae, no rashes or lesions. Initial Vital Signs Initial Vital Signs: Vital Signs Temperature 97.4 F L 12/13/24 16:53 Pulse Rate 111 H 12/13/24 16:53 Respiratory Rate 28 H 12/13/24 16:53 Blood Pressure 139/88 12/13/24 16:53 Pulse Oximetry 99 12/13/24 16:53 Oxygen Delivery Method BiPAP 12/13/24 16:53 <Lex Mckenna DO - Last Filed: 12/13/24 19:53> Initial Vital Signs Initial Vital Signs: Vital Signs Temperature 97.4 F L 12/13/24 16:53 Pulse Rate 111 H 12/13/24 16:53 Respiratory Rate 28 H 12/13/24 16:53 Blood Pressure 139/88 12/13/24 16:53 Pulse Oximetry 99 12/13/24 16:53 Oxygen Delivery Method BiPAP 12/13/24 16:53 Course <Lauren Meyer, - Last Filed: 12/17/24 18:21> Orders Ordered: Discontinued Medications Albuterol (Albuterol 2.5 Mg/3 Ml Neb (Adult)) 20 mg INH NOW ONE Stop: 12/13/24 16:58 Last Admin: 12/13/24 17:07 Dose: 20 mg Documented By: JZF Doxycycline Hyclate (Doxycycline Hyclate 100 Mg Tablet) 100 mg PO NOW ONE Stop: 12/13/24 19:31 Last Admin: 12/13/24 19:52 Dose: 100 mg Documented By: AB Vital Signs Vital signs: Vital Signs - 8 hr 12/13/24 16:53 12/13/24 16:54 12/13/24 16:57 Temperature 97.4 F L Pulse Rate 111 H 111 H Respiratory Rate 28 H 24 Blood Pressure 139/88 Pulse Oximetry 99 99 Oxygen Delivery Method BiPAP BiPAP Fraction of Inspired Oxygen 12/13/24 17:00 12/13/24 17:00 12/13/24 17:03 Temperature Pulse Rate 106 H Respiratory Rate 27 H Blood Pressure 133/72 133/72 Pulse Oximetry 96 Oxygen Delivery Method Fraction of Inspired Oxygen 12/13/24 17:30 12/13/24 17:30 12/13/24 18:00 Temperature Pulse Rate 97 H 94 H Respiratory Rate 23 22 Blood Pressure 116/69 Pulse Oximetry 96 97 Oxygen Delivery Method Fraction of Inspired Oxygen 12/13/24 18:00 12/13/24 18:03 12/13/24 18:03 Temperature Pulse Rate 96 H Respiratory Rate 23 Blood Pressure 111/63 112/71 Pulse Oximetry 98 Oxygen Delivery Method Fraction of Inspired Oxygen 12/13/24 18:17 12/13/24 18:17 12/13/24 18:22 Temperature Pulse Rate 90 Respiratory Rate 22 Blood Pressure 121/65 121/65 Pulse Oximetry 99 Oxygen Delivery Method Fraction of Inspired Oxygen 30 12/13/24 18:30 12/13/24 18:30 12/13/24 19:00 Temperature Pulse Rate 90 Respiratory Rate 22 Blood Pressure 117/62 122/76 Pulse Oximetry 98 Oxygen Delivery Method Fraction of Inspired Oxygen 12/13/24 19:00 Temperature Pulse Rate 92 H Respiratory Rate 27 H Blood Pressure Pulse Oximetry 98 Oxygen Delivery Method Fraction of Inspired Oxygen <Lex Mckenna DO - Last Filed: 12/13/24 19:53> Orders Ordered: Discontinued Medications Albuterol (Albuterol 2.5 Mg/3 Ml Neb (Adult)) 20 mg INH NOW ONE Stop: 12/13/24 16:58 Last Admin: 12/13/24 17:07 Dose: 20 mg Documented By: JZF Doxycycline Hyclate (Doxycycline Hyclate 100 Mg Tablet) 100 mg PO NOW ONE Stop: 12/13/24 19:31 Last Admin: 12/13/24 19:52 Dose: 100 mg Documented By: AB Vital Signs Vital signs: Vital Signs - 8 hr 12/13/24 16:53 12/13/24 16:54 12/13/24 16:57 Temperature 97.4 F L Pulse Rate 111 H 111 H Respiratory Rate 28 H 24 Blood Pressure 139/88 Pulse Oximetry 99 99 Oxygen Delivery Method BiPAP BiPAP Fraction of Inspired Oxygen 12/13/24 17:00 12/13/24 17:00 12/13/24 17:03 Temperature Pulse Rate 106 H Respiratory Rate 27 H Blood Pressure 133/72 133/72 Pulse Oximetry 96 Oxygen Delivery Method Fraction of Inspired Oxygen 12/13/24 17:30 12/13/24 17:30 12/13/24 18:00 Temperature Pulse Rate 97 H 94 H Respiratory Rate 23 22 Blood Pressure 116/69 Pulse Oximetry 96 97 Oxygen Delivery Method Fraction of Inspired Oxygen 12/13/24 18:00 12/13/24 18:03 12/13/24 18:03 Temperature Pulse Rate 96 H Respiratory Rate 23 Blood Pressure 111/63 112/71 Pulse Oximetry 98 Oxygen Delivery Method Fraction of Inspired Oxygen 12/13/24 18:17 12/13/24 18:17 12/13/24 18:22 Temperature Pulse Rate 90 Respiratory Rate 22 Blood Pressure 121/65 121/65 Pulse Oximetry 99 Oxygen Delivery Method Fraction of Inspired Oxygen 30 12/13/24 18:30 12/13/24 18:30 12/13/24 19:00 Temperature Pulse Rate 90 Respiratory Rate 22 Blood Pressure 117/62 122/76 Pulse Oximetry 98 Oxygen Delivery Method Fraction of Inspired Oxygen 12/13/24 19:00 Temperature Pulse Rate 92 H Respiratory Rate 27 H Blood Pressure Pulse Oximetry 98 Oxygen Delivery Method Fraction of Inspired Oxygen MDM - SOB/Dyspnea <Lauren Meyer, - Last Filed: 12/17/24 18:21> Lab Data 12/13/24 16:55 12/13/24 16:55 Labs: Lab Results 12/13/24 Range/Units 16:55 WBC 16.8 H (4.5-11.0) X10^3/uL RBC 5.03 (4.0-5.2) X10^6/uL Hgb 14.8 (12.0-16.0) g/dL Hct 44.2 (36-46) % MCV 87.9 (80-100) fL MCH 29.4 (26-34) PG MCHC 33.4 (30-36) % RDW 14.2 (11.6-14.8) % Plt Count 289 (150-400) X10^3/uL Neut % (Auto) 72.7 (50-75) % Lymph % (Auto) 19.1 L (25-40) % Holmes % (Auto) 4.8 (3-14) % Eos % (Auto) 2.7 (2-4) % Baso % (Auto) 0.7 (0-2) % Neut # (Auto) 36802 H (8341-0427) /uL Lymph # (Auto) 3200 (0957-4604) /uL Holmes # (Auto) 800 (0-900) /uL Eos # (Auto) 500 H (0-450) /uL Baso # (Auto) 100 (0-100) /uL PT 10.9 (9.4-12.5) SECONDS INR 1.0 (0.9-1.3) D-Dimer 655 H (<500) ng/ml Sodium 136 L (137-145) mmol/L Potassium 3.6 (3.4-5.1) mmol/L Chloride 109 H (98-107) mmol/L Carbon Dioxide 18 L (22-32) mmol/L BUN 13 (7-17) mg/dL Creatinine 1.20 H (0.52-1.04) mg/dL Estimated GFR 53 L (>60) mL/min BUN/Creatinine Ratio 10.8 (6-22) Glucose 189 H (70-100) mg/dL Lactate 1.4 (0.7-2.1) mmol/L Calcium 9.3 (8.4-10.2) mg/dL Total Bilirubin 0.5 (0.2-1.3) mg/dL AST 26 (14-36) IU/L ALT 22 (<35) IU/L Alkaline Phosphatase 80 (38-126) U/L Troponin I < 0.012 (0.01-0.034) ng/mL NT-Pro-B Natriuret Pep 56 (<125) pg/mL Total Protein 7.4 (6.3-8.2) g/dL Albumin 4.3 (3.5-5.0) g/dL Globulin 3.1 (1.7-4.1) g/dL Albumin/Globulin Ratio 1.4 (1.0-2.8) SARS-CoV-2 (PCR) Negative (Negative) Influenza A (RT-PCR) Flu a negative (NEGATIVE) Influenza B (RT-PCR) Flu b negative (NEGATIVE) RSV (PCR) Negative (Negative) ECG Data Attestation: I personally reviewed and interpreted this ECG as follows: Prior ECG tracings: available for review Interpretation: Sinus tachycardia rate of 108 [place] 126 QRS is 74 QTC of 434, no acute ST elevation. MDM Narrative Medical decision making narrative: 54-year-old female with several visits for shortness of breath with acute wheeze, no formal diagnosis patient states she was seen pulmonology who told her nothing is wrong with her lungs she does still use tobacco regularly. Patient arrives wheezy and tachycardic has had Solu-Medrol, magnesium, DuoNeb x2 and was then placed on CPAP by EMS with improvement work of breathing. Patient is still tight on examination was given additional albuterol. Patient had 1 L NS started by EMS we will continue. Labs labs show white count of 16.8 patient has been elevated last several visits but it was likely also been on steroids hemoglobin is 14.8 platelets are 289. INR is 1, D-dimer 655 when age adjusted this still elevated. Prompting CT angio, sodium is 136 potassium 3.6 chloride 109 CO2 is 18 with a BUN of 13 creatinine 1.2 appears fairly consistent with priors glucose is 189 troponins less than 0.012 with a BNP of 56. COVID/RSV/influenza EKG shows sinus tach, no acute elevation does have little bit of biphasic T-wave in lateral leads. Chest x-ray shows no acute change CT angio chest pending. Patient had albuterol 20 mg, was transitioned over to BiPAP. Patient signed out to Dr. Mckenna, CT angio is pending. Patient wheeze has significantly improved transitioning off of BiPAP. Dr. Mckenna 1800: Received sign-out from morning provider, patient is a 54-year-old female with a history of daily tobacco use and COPD who presents via EMS for shortness of breath, states that she was in the low 80s at initial evaluation tachypneic tachycardic, prior to arrival did receive 125 Solu-Medrol 2 g Mag, duo nebs and was placed on CPAP with improvement of symptoms, patient was placed on BiPAP here for persistent work of breathing is on 1 hour continuous neb. patient did have elevated D-dimer, final disposition is pending re-evaluation and CTA results 1905: Patient with significant improvement of respirations, clear lung franklin bilaterally, CTA without any pulmonary embolism but noted to have right upper nodularity consistent of atypical infection therefore patient will be started on antibiotics. <Lex Mckenna, DO - Last Filed: 12/13/24 19:53> Lab Data Labs: Lab Results 12/13/24 Range/Units 16:55 WBC 16.8 H (4.5-11.0) X10^3/uL RBC 5.03 (4.0-5.2) X10^6/uL Hgb 14.8 (12.0-16.0) g/dL Hct 44.2 (36-46) % MCV 87.9 (80-100) fL MCH 29.4 (26-34) PG MCHC 33.4 (30-36) % RDW 14.2 (11.6-14.8) % Plt Count 289 (150-400) X10^3/uL Neut % (Auto) 72.7 (50-75) % Lymph % (Auto) 19.1 L (25-40) % Holmes % (Auto) 4.8 (3-14) % Eos % (Auto) 2.7 (2-4) % Baso % (Auto) 0.7 (0-2) % Neut # (Auto) 25752 H (7294-8221) /uL Lymph # (Auto) 3200 (6898-1732) /uL Holmes # (Auto) 800 (0-900) /uL Eos # (Auto) 500 H (0-450) /uL Baso # (Auto) 100 (0-100) /uL PT 10.9 (9.4-12.5) SECONDS INR 1.0 (0.9-1.3) D-Dimer 655 H (<500) ng/ml Sodium 136 L (137-145) mmol/L Potassium 3.6 (3.4-5.1) mmol/L Chloride 109 H (98-107) mmol/L Carbon Dioxide 18 L (22-32) mmol/L BUN 13 (7-17) mg/dL Creatinine 1.20 H (0.52-1.04) mg/dL Estimated GFR 53 L (>60) mL/min BUN/Creatinine Ratio 10.8 (6-22) Glucose 189 H (70-100) mg/dL Lactate 1.4 (0.7-2.1) mmol/L Calcium 9.3 (8.4-10.2) mg/dL Total Bilirubin 0.5 (0.2-1.3) mg/dL AST 26 (14-36) IU/L ALT 22 (<35) IU/L Alkaline Phosphatase 80 (38-126) U/L Troponin I < 0.012 (0.01-0.034) ng/mL NT-Pro-B Natriuret Pep 56 (<125) pg/mL Total Protein 7.4 (6.3-8.2) g/dL Albumin 4.3 (3.5-5.0) g/dL Globulin 3.1 (1.7-4.1) g/dL Albumin/Globulin Ratio 1.4 (1.0-2.8) SARS-CoV-2 (PCR) Negative (Negative) Influenza A (RT-PCR) Flu a negative (NEGATIVE) Influenza B (RT-PCR) Flu b negative (NEGATIVE) RSV (PCR) Negative (Negative) Imaging Data CT scan - chest: Radiologist's Impression: [address] [address] [address] Scan Report Signed Patient: Indiana Howell MR#: [id number] : 1970 Acct:[id number] Age/Sex: 54 / F Date of Service: 12/13/24 Loc: ED Accession Number: [id number] Procedure: CT angio chest PE protocol Ordering Provider: Lauren Meyer D.O. PROCEDURE: CT ANGIO CHEST PE PROTOCOL INDICATIONS: recurrent sob, elevated dimer TECHNIQUE: After the administration of intravenous contrast, 2 mm thick sections acquired from the pulmonary apices to the posterior costophrenic angles. 3-dimensional maximum intensity projection (MIP) coronal and sagittal reformats were then acquired through the thorax. For radiation dose reduction, the following was used: automated exposure control, adjustment of mA and/or kV according to patient size. COMPARISON: None. FINDINGS: Image quality: Diagnostic. Pulmonary arteries: Pulmonary arteries are normal in size, and demonstrate no intraluminal filling defects to suggest central pulmonary embolism. Lower Neck: No enlarged lymph nodes. Thyroid: The thyroid is diffusely enlarged with multiple large thyroid nodules including a left 2.7 cm thyroid nodule. Axillae: No enlarged lymph nodes. Chest Wall: Unremarkable. Bones: Unremarkable. Lungs and Pleura: No pneumothorax or pleural effusions. Emphysematous changes of the lungs. Bilateral apical scarring. Tree-in-bud nodularity within the lower right upper lobe. Heart: Heart size is normal. No pericardial effusion. Thoracic Vessels: No aortic aneurysm. Mediastinum and Belkis: No enlarged lymph nodes. Esophagus: No wall thickening. Large hiatal hernia. Upper Abdomen: Visualized upper abdomen solid organs and bowel loops appear normal. IMPRESSION: No pulmonary embolus. Tree-in-bud nodularity of the right upper lobe may represent atypical infection. Multinodular thyroid, consider nonemergent ultrasound. Large hiatal hernia [facility] Narrative Medical decision making narrative: 54-year-old female with several visits for shortness of breath with acute wheeze, no formal diagnosis patient states she was seen pulmonology who told her nothing is wrong with her lungs she does still use tobacco regularly. Patient arrives wheezy and tachycardic has had Solu-Medrol, magnesium, DuoNeb x2 and was then placed on CPAP by EMS with improvement work of breathing. Patient is still tight on examination was given additional albuterol. Patient had 1 L NS started by EMS we will continue. Labs labs show white count of 16.8 patient has been elevated last several visits but it was likely also been on steroids hemoglobin is 14.8 platelets are 289. INR is 1, D-dimer 655 when age adjusted this still elevated. Prompting CT angio, sodium is 136 potassium 3.6 chloride 109 CO2 is 18 with a BUN of 13 creatinine 1.2 appears fairly consistent with priors glucose is 189 troponins less than 0.012 with a BNP of 56. COVID/RSV/influenza EKG shows sinus tach, no acute elevation does have little bit of biphasic T-wave in lateral leads. Chest x-ray shows no acute change CT angio chest Patient had albuterol 20 mg, was transitioned over to BiPAP. Dr. Mckenna 1800: Received sign-out from morning provider, patient is a 54-year-old female with a history of daily tobacco use and COPD who presents via EMS for shortness of breath, states that she was in the low 80s at initial evaluation tachypneic tachycardic, prior to arrival did receive 125 Solu-Medrol 2 g Mag, duo nebs and was placed on CPAP with improvement of symptoms, patient was placed on BiPAP here for persistent work of breathing is on 1 hour continuous neb. patient did have elevated D-dimer, final disposition is pending re-evaluation and CTA results 1905: Patient with significant improvement of respirations, clear lung franklin bilaterally, CTA without any pulmonary embolism but noted to have right upper nodularity consistent of atypical infection therefore patient will be started on antibiotics. Discharge Plan Departure Patient Disposition: Home Clinical Impression: Pneumonia, Exacerbation of reactive airway disease Activity Restrictions/Additional Instructions: Please follow up with primary care and pulmonology in outpatient setting Please read the discharge instructions sheet carefully and bring all papers to all doctor follow-up visits, as it may contain information that your doctor may want to see. Disease processes change and evolve, if your symptoms worsen or if you develop any new symptoms that are concerning to you please return for evaluation. Your evaluation today does not show any evidence of any life-threatening/serious illnesses requiring admission to the hospital or surgery. Please follow-up with your doctor for re-evaluation in approximately 1 day. Seek immediate medical attention for any worrisome symptoms. *If you do not have a primary care provider please contact the [facility] Resource line at [phone]. They will ask some questions about your medical history and help get you set up with a doctor in the community. Prescriptions: New doxycycline hyclate 100 mg tablet 100 mg PO Q12H 5 Days Qty: 10 0RF prednisone 20 mg tablet 40 mg PO BID 5 Days Qty: 20 0RF No Action albuterol sulfate 90 mcg/actuation aero powdr breath act w/sensor 1 inh inhalation Q4-6H PRN (Reason: shortness of breath or wheezing) Qty: 1 1RF nicotine 7 mg/24 hr patch 24 hour 1 patch transdermal Q24H Qty: 14 3RF varenicline tartrate [Chantix Starting Month Box] 0.5 mg (11)- 1 mg (42) tablets,dose pack See Rx Instructions PO PER PKG DIR Qty: 53 0RF Rx Instructions: PO PER PKG DIR Anoro Ellipta 62.5-25 mcg/actuation blister with device 1 inh inhalation DAILY Qty: 60 5RF Referrals: Miscellaneous,Doctor, MD [Primary Care Provider] - Stand Alone Forms: Patient Portal/API/Survey
[2024-12-13 17:04] LABS: Add Manual Diff / Slide Review NO; Basophils Absolute Auto 100 /uL (0-100); Basophils Percent Auto 0.7 % (0-2); Eosinophils Absolute Auto 500 /uL (0-450); Eosinophils Percent Auto 2.7 % (2-4); Hematocrit 44.2 % (36-46); Hemoglobin 14.8 g/dL (12.0-16.0); Lymphocytes Absolute Auto 3200 /uL (1100-4500); Lymphocytes Percent Auto 19.1 % (25-40); Mean Corpuscular HGB Conc 33.4 % (30-36); Mean Corpuscular Hemoglobin 29.4 PG (26-34); Mean Corpuscular Volume 87.9 fL (80-100); Monocytes Absolute Auto 800 /uL (0-900); Monocytes Percent Auto 4.8 % (3-14); Neutrophils Absolute Auto 12200 /uL (1500-7000); Neutrophils Percent Auto 72.7 % (50-75); Platelet Count 289 X10^3/uL (150-400); Red Blood Cell Count 5.03 X10^6/uL (4.0-5.2); Red Cell Distribution Width 14.2 % (11.6-14.8); White Blood Cell Count 16.8 X10^3/uL (4.5-11.0)
--- NOTE | 2024-12-13 17:06 | PC.NURSE ---
Pt reports increasing shortness of breath throughout the day but worse in the last hour. Pt states she was seen by pulmonology recently (last week?) and states they could not find anything. Pt admits to vape usage; last use yesterday.
[2024-12-13] MEDS: ALBUTEROL 2.5 MG/3 ML NEB (ADULT) 20 MG INH (17:07)
[2024-12-13 17:22] LABS: Alanine Aminotransferase 22 IU/L (<35); Albumin 4.3 g/dL (3.5-5.0); Albumin Globulin Ratio 1.4 (1.0-2.8); Alkaline Phosphatase 80 U/L (38-126); Aspartate Aminotransferase 26 IU/L (14-36); BUN Creatinine Ratio 10.8 (6-22); Bilirubin Total 0.5 mg/dL (0.2-1.3); Blood Urea Nitrogen 13 mg/dL (7-17); Calcium 9.3 mg/dL (8.4-10.2); Carbon Dioxide 18 mmol/L (22-32); Chloride 109 mmol/L (98-107); Estimated Glomerular Filt Rate 53 mL/min (>60); Globulin 3.1 g/dL (1.7-4.1); Glucose 189 mg/dL (70-100); HEMOLYSIS < 15 (0-50); Lactate (Lactic Acid) 1.4 mmol/L (0.7-2.1); Potassium 3.6 mmol/L (3.4-5.1); Prothrombin Time 10.9 SECONDS (9.4-12.5); Sodium 136 mmol/L (137-145); Total Protein 7.4 g/dL (6.3-8.2)
[2024-12-13 17:33] LABS: NT-proBNP (BNP-Adult 18+) 56 pg/mL (<125); Troponin I < 0.012 ng/mL (0.01-0.034)
[2024-12-13 17:34] LABS: D Dimer 655 ng/ml (<500)
--- NOTE | 2024-12-13 17:39 | DI.CT.S_ITS ---
PROCEDURE: CT ANGIO CHEST PE PROTOCOL INDICATIONS: recurrent sob, elevated dimer TECHNIQUE: After the administration of intravenous contrast, 2 mm thick sections acquired from the pulmonary apices to the posterior costophrenic angles. 3-dimensional maximum intensity projection (MIP) coronal and sagittal reformats were then acquired through the thorax. For radiation dose reduction, the following was used: automated exposure control, adjustment of mA and/or kV according to patient size. COMPARISON: None. FINDINGS: Image quality: Diagnostic. Pulmonary arteries: Pulmonary arteries are normal in size, and demonstrate no intraluminal filling defects to suggest central pulmonary embolism. Lower Neck: No enlarged lymph nodes. Thyroid: The thyroid is diffusely enlarged with multiple large thyroid nodules including a left 2.7 cm thyroid nodule. Axillae: No enlarged lymph nodes. Chest Wall: Unremarkable. Bones: Unremarkable. Lungs and Pleura: No pneumothorax or pleural effusions. Emphysematous changes of the lungs. Bilateral apical scarring. Tree-in-bud nodularity within the lower right upper lobe. Heart: Heart size is normal. No pericardial effusion. Thoracic Vessels: No aortic aneurysm. Mediastinum and Belkis: No enlarged lymph nodes. Esophagus: No wall thickening. Large hiatal hernia. Upper Abdomen: Visualized upper abdomen solid organs and bowel loops appear normal. IMPRESSION: No pulmonary embolus. Tree-in-bud nodularity of the right upper lobe may represent atypical infection. Multinodular thyroid, consider nonemergent ultrasound. Large hiatal hernia Dictated by: Smith Chu M.D. on 12/13/2024 at 17:50 Approved by: Smith Chu M.D. on 12/13/2024 at 18:01
[2024-12-13 18:02] LABS: Influenza A - CEPHEID Flu A NEGATIVE (NEGATIVE); Influenza B - CEPHEID Flu B NEGATIVE (NEGATIVE); Respiratory Syncytial Virus Negative (Negative)
[2024-12-13 18:07] LABS: COVID-19 CEPHEID 4-PLEX PCR Negative (Negative)
--- NOTE | 2024-12-13 19:07 | PC.NURSE ---
Pt removed from bi-pap at this time by RT.
[2024-12-13] MEDS: DOXYCYCLINE HYCLATE 100 MG TABLET PO (19:52)
== END 2024-12-13 20:09 | disposition home or self-care (01) ==
PROVIDERS: Emergency Medicine; Emergency Provider Student in an Organized Health Care Education/Training Program
DX: J18.9 Pneumonia, unspecified organism (principal); J45.901 Unspecified asthma with (acute) exacerbation; J44.9 Chronic obstructive pulmonary disease, unspecified; R00.0 Tachycardia, unspecified; E66.9 Obesity, unspecified
CPT/HCPCS: 0241U; 71045; 71275; 80053; 83605; 83880; 84484; 85025; 85379; 85610; 93005; 94640; 99284; 99285; J7613; Q9967

== ENCOUNTER 2025-01-28 10:19 | Emergency (ER) | payer OTHER, SELFPAY ==
[2024-12-13 18:22] VITALS: PULSE 88; RESP 25; O2SAT 98
[2025-01-28] VITALS (12 sets, daily range): BP systolic 122–153; BP diastolic 65–86; PULSE 98–113; RESP 16–29; TEMP 37.1; O2SAT 88–100; BMI 29.5
--- NOTE | 2025-01-28 10:46 | EKG_ITS ---
[address] [address] Test Date: 2025-01-28 Pat Name: Indiana Howell Department: 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
--- NOTE | 2025-01-28 10:46 | DI.RAD.S_ITS ---
PROCEDURE: XR CHEST 1V INDICATIONS: Shortness of breath TECHNIQUE: One view of the chest was acquired. COMPARISON: [facility], [place], XR CHEST 1V, 12/13/2024, 16:56. [facility], [place], XR CHEST 1V, 11/30/2024, 8:45. FINDINGS: Surgical changes and devices: None. Lungs and pleura: Lungs are clear. No pleural effusions or pneumothorax. Mediastinum: Mediastinal contours appear normal. Heart size is normal. Bones and chest wall: No suspicious bony lesions. Overlying soft tissues appear unremarkable. IMPRESSION: No acute cardiopulmonary abnormality is seen. Approved by: Joshua Saavedra M.D. on 01/28/2025 at 11:18
--- NOTE | 2025-01-28 10:50 | ED_ITS ---
HPI - General Adult General Chief complaint: Shortness of Breath/Dyspnea Stated complaint: SOB Time Seen by Provider: 01/28/25 10:50 History of Present Illness HPI narrative: 54-year-old woman with history of more than 20 years of 2 pack a day tobacco use she is down to half a pack-a-day at this point but comes in complaining of increasing wheeze. She was brought in by medics today with increased work of breathing. Prior to arrival she has had 125 mg of IV Solu-Medrol, albuterol MDI at home and to [facility] per medics. She is able to speak in full sentences. She states that in the last 3 days she has had intermittent fevers, increased cough that has more mucus production and work of breathing has gotten worse. Related Data Previous Rx's Medication Instructions Recorded nicotine 7 mg/24 hr daily 1 patch transdermal Q24H #14 ea 12/11/24 transdermal patch varenicline tartrate 0.5 mg (11)-1 See Rx Instructions PO PER PKG DIR 12/11/24 mg (42) tablets in a dose pack #53 ea (Chantix Starting Month Box) tiotropium 2.5 mcg-olodaterol 2.5 2 puff inhalation DAILY #4 grams 12/26/24 mcg/actuation mist for inhalation (Stiolto Respimat) albuterol sulfate 90 mcg/actuation 2 puff inhalation Q6H PRN 01/14/25 aerosol inhaler shortness of breath or wheezing #8.5 grams fluticasone 232 mcg-salmeterol 14 1 inh inhalation BID #1 ea 01/28/25 mcg/actuation breath activated powdr ipratropium 0.5 mg-albuterol 3 mg 3 ml inhalation QID PRN shortness 01/28/25 (2.5 mg base)/3 mL nebulization of breath or wheezing #180 mL soln nebulizer accessories #1 ea 01/28/25 nebulizer and compressor #1 ea 01/28/25 prednisone 20 mg tablet See Rx Instructions .Route 01/28/25 .COMPLEX #12 tabs Allergies Allergy/AdvReac Type Severity Reaction Status Date / Time codeine Allergy Intermediate Hives Verified 01/28/25 10:52 Review of Systems Constitutional Comments: Pertinent positive and negative findings as per HPI Patient History Medical History (Updated 01/28/25 @ 13:55 by Marquita Xavier MD) COPD (chronic obstructive pulmonary disease) Tobacco abuse Social History Smoking Status: Current every day smoker Smoking Status: Current every day smoker tobacco type: cigarettes Exam Initial Vital Signs Initial Vital Signs: Vital Signs Temperature 98.7 F 01/28/25 10:46 Pulse Rate 111 H 01/28/25 10:46 Respiratory Rate 18 01/28/25 10:46 Blood Pressure 153/86 H 01/28/25 10:46 Pulse Oximetry 100 01/28/25 10:46 Oxygen Delivery Method Room Air 01/28/25 10:46 General: Sitting forward/tripoding with supra clavicular retractions, she is able to speak in full sentences HEENT: Moist mucous membranes, normal sclera with reactive pupils, Respiratory: Lungs with wheeze throughout more notable in upper lung franklin, decreased movement in lower lung franklin no rhonchi Cardiac: Slight tachycardia otherwise Regular rate and rhythm no murmurs no bruits Abdomen: Soft, nontender, no rebound or guarding, no flank pain Skin: Warm and dry, no rashes Neurologic: Grossly neurologically intact with no obvious asymmetries or abnormalities Extremities: No trauma, well perfused, no lower extremity edema Psych: Anxious with the increased work of breathing but otherwise Cooperative, appropriate insight and affect Course Orders Ordered: Discontinued Medications Albuterol/Ipratropium (Albuterol/Ipratropium 3 Ml Ampul) 9 ml INH NOW ONE Stop: 01/28/25 10:53 Last Admin: 01/28/25 10:57 Dose: 9 ml Documented By: ANASTASYIA Albuterol/Ipratropium (Albuterol/Ipratropium 3 Ml Ampul) 3 ml INH NOW ONE Stop: 01/28/25 11:54 Last Admin: 01/28/25 11:55 Dose: 3 ml Documented By: ANASTASIYA Sodium Chloride (Normal Saline 0.9%) 1,000 mls @ 1,000 mls/hr IV BOLUS ONE Stop: 01/28/25 11:51 Last Infusion: 01/28/25 12:45 Dose: Infused Documented By: Admin: 01/28/25 11:02 Dose: 1,000 mls/hr Documented By: ROCCO Methylprednisolone (Methylprednisolone 125 Mg/2 Ml Vial) 125 mg IV NOW ONE Stop: 01/28/25 10:53 Last Admin: 01/28/25 11:00 Dose: Not Given Documented By: ROCCO Vital Signs Vital signs: Vital Signs - 8 hr 01/28/25 10:46 01/28/25 10:57 01/28/25 11:55 Temperature 98.7 F Pulse Rate 111 H 100 H 109 H Respiratory Rate 18 18 16 Blood Pressure 153/86 H Pulse Oximetry 100 96 97 Oxygen Delivery Method Room Air Room Air Room Air Medical Decision Making Lab Data 01/28/25 10:38 01/28/25 10:38 Labs: Lab Results 01/28/25 Range/Units 10:38 WBC 10.7 (4.5-11.0) X10^3/uL RBC 4.95 (4.0-5.2) X10^6/uL Hgb 14.8 (12.0-16.0) g/dL Hct 43.3 (36-46) % MCV 87.4 (80-100) fL MCH 29.8 (26-34) PG MCHC 34.1 (30-36) % RDW 14.3 (11.6-14.8) % Plt Count 298 (150-400) X10^3/uL Neut % (Auto) 54.2 (50-75) % Lymph % (Auto) 25.5 (25-40) % [place] % (Auto) 7.9 (3-14) % Eos % (Auto) 11.6 H (2-4) % Baso % (Auto) 0.8 (0-2) % Neut # (Auto) 5800 (8171-9310) /uL Lymph # (Auto) 2700 (9250-8873) /uL [place] # (Auto) 800 (0-900) /uL Eos # (Auto) 1200 H (0-450) /uL Baso # (Auto) 100 (0-100) /uL PT 10.6 (9.4-12.5) SECONDS INR 0.9 (0.9-1.3) Sodium 138 (137-145) mmol/L Potassium 3.8 (3.4-5.1) mmol/L Chloride 107 (98-107) mmol/L Carbon Dioxide 20 L (22-32) mmol/L BUN 13 (7-17) mg/dL Creatinine 1.10 H (0.52-1.04) mg/dL Estimated GFR 59 L (>60) mL/min BUN/Creatinine Ratio 11.8 (6-22) Glucose 138 H (70-100) mg/dL Lactate 1.4 (0.7-2.1) mmol/L Calcium 9.7 (8.4-10.2) mg/dL Total Bilirubin 0.9 (0.2-1.3) mg/dL AST 40 H (14-36) IU/L ALT 25 (<35) IU/L Alkaline Phosphatase 79 (38-126) U/L Troponin I < 0.012 (0.01-0.034) ng/mL NT-Pro-B Natriuret Pep 23 (<125) pg/mL Total Protein 7.6 (6.3-8.2) g/dL Albumin 4.3 (3.5-5.0) g/dL Globulin 3.3 (1.7-4.1) g/dL Albumin/Globulin Ratio 1.3 (1.0-2.8) MDM Narrative Medical decision making narrative: CC: Cough, wheeze, dyspnea Complicating co-morbidities: COPD, still half a pack a day of tobacco Data collected from: patient Medical records reviewed: Multiple prior ER evaluations for asthma/COPD/upper respiratory infections Was seen by pulmonary physician on December 11 and was prescribed Anoro Elliptan, insurance did not cover this, she was given Stiolto Respimat which the patient states did not help the 1st time, made things worse the 2nd time and the 3rd time she used she almost needed call 911 she became so short of breath. It does not look like she is ever tried the fluticasone salmeterol combination. Differential considered: COPD exacerbation, viral syndrome, bacterial pneumonia, pulmonary embolism is felt to be less likely Exam documented above, pertinent findings include: Able to speak in full sentences, he has not tachycardic, she does have significant cough and does have significant wheeze throughout all lung franklin. No rhonchi appreciated Lab Test results independently reviewed as above. Pertinent findings: CBC is unremarkable Chemistries show slightly elevated glucose, stable creatinine at 1.1 Troponin is undetectable BNP is low, no suggestion of heart failure Independently reviewed EKG: Sinus rhythm at a rate of 95. Nonspecific STT wave changes Imaging studies independently reviewed: Chest x-ray shows hyperinflation but no obvious infiltrates, no pneumothorax CT angiogram done December 13, 2024 for similar complaints and presentation showed no pulmonary embolism with tree-in-bud nodularity in the right upper lobe possibly atypical infection mentioned of multinodular thyroid Treatments: Series prior to arrival, multiple DuoNebs, fluid, patient is doing much better Discussion: 54-year-old woman with COPD and significant exacerbation. No evidence of acute infection either viral or bacterial. She has seen a human resource management instructor did not have any luck with the long-acting steroids and beta 2 agonist preparations that she tried. She currently has albuterol with a spacer as her only medication at home. She does not have a nebulizer but would like to have the option of nebulizer to use DuoNebs at home. She has the paperwork to begin to get in with a new primary care provider but appointment likely will not be till the end of February or in March. Prescriptions for longer steroid taper, nebulizer, fluticasone/salmeterol inhaled baseline treatment has been ordered. She has Chantix at home and I did tell her it was okay to begin that with all of these other medications she states that as of today she will no longer be a smoker. She has patches, gum, solid plan for getting rid of the cigarettes completely. She is aware of her multinodular thyroid abnormality and this is on her list of topics to address with a new primary care physician. At this point there is no indication for further imaging or hospitalization. Questions are answered and she was discharged Discharge Plan Departure Patient Disposition: Home Clinical Impression: Acute exacerbation of chronic obstructive airways disease Instructions: DI for Chronic Obstructive Pulmonary Disease Activity Restrictions/Additional Instructions: Thank you for coming in today There is no indication of viral or bacterial infection, no heart attack no heart failure. I believe all of the shortness of breath is related to an acute COPD exacerbation. 1. Go ahead and start your Chantix, stopping smoking is the number one thing that is going to get you feeling better longer 2. I have given a prescription for a nebulizer, nebulizer supplies and a prescription for DuoNeb solution to use in the nebulizer for shortness of breath. You can do this is frequently as every 6 hours 3. You can continue to use your albuterol rescue inhaler if needed 4. I will give you a prescription for a different long-acting steroid inhaler to see if you tolerate this better. This is to prevent problems in the 1st place. This is not treat acute issues 5. Given you a prescription of prednisone, you need 40 mg for 3 days (you are gonna big dose of steroids in the ER today), 20 mg for 4 days, 10 mg for 4 days then stop 6. There was no indication for antibiotics today. 7. Do it you need to do to get established with your new primary care physician. You do need to review your multinodular thyroid and follow up for that when she will establish care All prescriptions went to [facility] in [place] If you find that you are getting worse, please do come back to the ER Prescriptions: New (DME) nebulizer and compressor Device See Rx Instructions .Route Qty: 1 0RF Rx Instructions: As directed (DME) nebulizer accessories Kit See Rx Instructions .Route Qty: 1 0RF Rx Instructions: As directed ipratropium-albuterol 0.5 mg-3 mg(2.5 mg base)/3 mL solution for nebulization 3 ml inhalation QID PRN (Reason: shortness of breath or wheezing) Qty: 180 0RF prednisone 20 mg tablet See Rx Instructions .ROUTE .COMPLEX Qty: 12 0RF Rx Instructions: 40 mg daily 3 days, 20mg daily 4 days, 10mg daily 4 days fluticasone propion-salmeterol 232-14 mcg/actuation aerosol powdr breath activated 1 inh inhalation BID Qty: 1 1RF No Action Stiolto Respimat 2.5-2.5 mcg/actuation mist 2 puff inhalation DAILY Qty: 4 11RF albuterol sulfate 90 mcg/actuation HFA aerosol inhaler 2 puff inhalation Q6H PRN (Reason: shortness of breath or wheezing) Qty: 8.5 5RF nicotine 7 mg/24 hr patch 24 hour 1 patch transdermal Q24H Qty: 14 3RF varenicline tartrate [Chantix Starting Month Box] 0.5 mg (11)- 1 mg (42) tablets,dose pack See Rx Instructions PO PER PKG DIR Qty: 53 0RF Rx Instructions: PO PER PKG DIR Stand Alone Forms: Patient Portal/API/Survey
[2025-01-28 10:54] LABS: Add Manual Diff / Slide Review NO; Basophils Absolute Auto 100 /uL (0-100); Basophils Percent Auto 0.8 % (0-2); Eosinophils Absolute Auto 1200 /uL (0-450); Eosinophils Percent Auto 11.6 % (2-4); Hematocrit 43.3 % (36-46); Hemoglobin 14.8 g/dL (12.0-16.0); Lymphocytes Absolute Auto 2700 /uL (1100-4500); Lymphocytes Percent Auto 25.5 % (25-40); Mean Corpuscular HGB Conc 34.1 % (30-36); Mean Corpuscular Hemoglobin 29.8 PG (26-34); Mean Corpuscular Volume 87.4 fL (80-100); Monocytes Absolute Auto 800 /uL (0-900); Monocytes Percent Auto 7.9 % (3-14); Neutrophils Absolute Auto 5800 /uL (1500-7000); Neutrophils Percent Auto 54.2 % (50-75); Platelet Count 298 X10^3/uL (150-400); Red Blood Cell Count 4.95 X10^6/uL (4.0-5.2); Red Cell Distribution Width 14.3 % (11.6-14.8); White Blood Cell Count 10.7 X10^3/uL (4.5-11.0)
[2025-01-28] MEDS: ALBUTEROL/IPRATROPIUM 3 ML AMPUL 9 ML INH (10:57)
[2025-01-28 11:01] LABS: INR 0.9 (0.9-1.3); Prothrombin Time 10.6 SECONDS (9.4-12.5)
[2025-01-28] MEDS: SODIUM CHLORIDE 0.9% 1,000 ML 1000 ML IV (11:02)
[2025-01-28 11:04] LABS: Alanine Aminotransferase 25 IU/L (<35); Albumin 4.3 g/dL (3.5-5.0); Albumin Globulin Ratio 1.3 (1.0-2.8); Alkaline Phosphatase 79 U/L (38-126); Aspartate Aminotransferase 40 IU/L (14-36); BUN Creatinine Ratio 11.8 (6-22); Bilirubin Total 0.9 mg/dL (0.2-1.3); Blood Urea Nitrogen 13 mg/dL (7-17); Calcium 9.7 mg/dL (8.4-10.2); Carbon Dioxide 20 mmol/L (22-32); Chloride 107 mmol/L (98-107); Estimated Glomerular Filt Rate 59 mL/min (>60); Globulin 3.3 g/dL (1.7-4.1); Glucose 138 mg/dL (70-100); Potassium 3.8 mmol/L (3.4-5.1); Sodium 138 mmol/L (137-145); Total Protein 7.6 g/dL (6.3-8.2)
[2025-01-28 11:05] LABS: HEMOLYSIS 117 (0-50); Lactate (Lactic Acid) 1.4 mmol/L (0.7-2.1)
[2025-01-28 11:16] LABS: NT-proBNP (BNP-Adult 18+) 23 pg/mL (<125); Troponin I < 0.012 ng/mL (0.01-0.034)
--- NOTE | 2025-01-28 11:39 | PC.NURSE ---
Addendum entered by Chandni Rojas R.N. 01/28/25 11:45: Rt called for eval & treat Original Note: Pt states that when she leaned back in bed, she felt very SOB, began to cough and that it took her a few extra minutes to catch her breath. States that she has not been able to lay flat for quite some time. 96% on RA. Pt states that she feels better when she sits upright. A&Ox4.
[2025-01-28] MEDS: ALBUTEROL/IPRATROPIUM 3 ML AMPUL INH (11:55)
--- NOTE | 2025-01-28 12:55 | PC.NURSE ---
Pt states that she feel better while sitting up and after several neb treatments. A&Ox4.
== END 2025-01-28 14:10 | disposition home or self-care (01) ==
PROVIDERS: Emergency Provider Emergency Medicine
DX: J44.1 Chronic obstructive pulmonary disease with (acute) exacerbation (principal); Z72.0 Tobacco use
CPT/HCPCS: 36415; 71045; 80053; 83605; 83880; 84484; 85025; 85610; 93005; 94640; 96360; 96361; 99284

== ENCOUNTER 2025-03-03 08:01 | Observation (INO) | payer OTHER, SELFPAY ==
[2024-12-13 18:22] VITALS: PULSE 88; RESP 25; O2SAT 98
[2025-03-03] VITALS (22 sets, daily range): BP systolic 102–177; BP diastolic 56–92; PULSE 91–105; RESP 12–40; TEMP 31–36.2; O2SAT 86–99; BMI 36.3
--- NOTE | 2025-03-03 08:11 | ED_ITS ---
HPI - Asthma General Chief Complaint: Shortness of Breath/Dyspnea Stated Complaint: Sever asthma, SOB Time Seen by Provider: 03/03/25 08:11 History of Present Illness HPI Narrative: 54-year-old female history of asthma COPD not on home O2 brought in via EMS for severe respiratory distress. She is a smoker she ran out of her iaptroium bromide inhaler yesterday and was given 2 DuoNebs 125 of Solu-Medrol and 2 g of magnesium via EMS but still complaining of short of shortness of breath at this time. Reviewing her notes she has been to the ER once a month for the last 4 months for asthma COPD exacerbation she is attempting to quit smoking at this time. Other than what is stated 14 point review of system is negative Related Data Previous Rx's Medication Instructions Recorded nicotine 7 mg/24 hr daily 1 patch transdermal Q24H #14 ea 12/11/24 transdermal patch varenicline tartrate 0.5 mg (11)-1 See Rx Instructions PO PER PKG DIR 12/11/24 mg (42) tablets in a dose pack #53 ea (Chantix Starting Month Box) tiotropium 2.5 mcg-olodaterol 2.5 2 puff inhalation DAILY #4 grams 12/26/24 mcg/actuation mist for inhalation (Stiolto Respimat) albuterol sulfate 90 mcg/actuation 2 puff inhalation Q6H PRN 01/14/25 aerosol inhaler shortness of breath or wheezing #8.5 grams fluticasone 232 mcg-salmeterol 14 1 inh inhalation BID #1 ea 01/28/25 mcg/actuation breath activated powdr ipratropium 0.5 mg-albuterol 3 mg 3 ml inhalation QID PRN shortness 01/28/25 (2.5 mg base)/3 mL nebulization of breath or wheezing #180 mL soln nebulizer accessories #1 ea 01/28/25 nebulizer and compressor #1 ea 01/28/25 prednisone 20 mg tablet See Rx Instructions .Route 01/28/25 .COMPLEX #12 tabs Allergies Allergy/AdvReac Type Severity Reaction Status Date / Time codeine Allergy Intermediate Hives Verified 01/28/25 10:52 Review of Systems Review of Systems ROS Unobtainable: All systems reviewed & are unremarkable except as noted in HPI and below Patient History Medical History (Updated 03/03/25 @ 12:20 by Dawit Hinojosa DO) COPD (chronic obstructive pulmonary disease) Tobacco abuse Social History Smoking Status: Current every day smoker tobacco type: cigarettes Exam Narrative Exam Narrative: GENERAL: [54] year old patient appears stated age. Well-developed patient, in moderate distress able to speak in short full sentences. HEAD: Atraumatic. Normocephalic. EYES: Pupils equal round and reactive. Extraocular motions intact. No scleral icterus. No injection or drainage. ENT: Nose without bleeding, purulent drainage. Throat without erythema, tonsillar hypertrophy or exudate. Airway patent. NECK: Trachea midline. Non tender CARDIOVASCULAR: Regular rate and rhythm without murmurs, gallops, or rubs. RESPIRATORY: Diffuse wheeze throughout GASTROINTESTINAL: Abdomen soft, non-tender, nondistended. EXTREMITIES: No edema or joint tenderness. BACK: Nontender without deformity or crepitance. No flank tenderness. NEURO: AOx3. SKIN: No rash or erythema of visible areas Initial Vital Signs Initial Vital Signs: Vital Signs Temperature 97 F L 03/03/25 08:02 Pulse Rate 105 H 03/03/25 08:02 Respiratory Rate 40 H 03/03/25 08:02 Blood Pressure 177/92 H 03/03/25 08:02 Pulse Oximetry 99 03/03/25 08:02 Oxygen Delivery Method BiPAP 03/03/25 08:02 Course Orders Ordered: ED Orders 03/03/25 08:15 Complete Blood Count AUTO DIFF Stat Comprehensive Metabolic Panel Stat Lactate (Lactic Acid) Stat NT-proBNP (BNP-Adult 18+) Stat Prothrombin Time INR Stat Troponin I Stat 03/03/25 08:18 XR chest 1V Stat Blood Culture Stat EKG-12 Lead Stat Measure peak expiratory flow ONCE RT Consult Eval and Treat NOW 03/03/25 11:21 Covid-19 + FLU A/B + RSV - PCR Stat Albuterol (Albuterol 2.5 Mg/3 Ml Neb (Adult)) 2.5 mg INH [id number] PRN PRN Reason: Shortness Of Breath Last Admin: 03/03/25 08:34 Dose: 2.5 mg Documented By: Admin: 03/03/25 08:33 Dose: 2.5 mg Documented By: Admin: 03/03/25 08:32 Dose: 2.5 mg Documented By: SAT Discontinued Medications Lorazepam (Lorazepam 2 Mg/Ml Inj) 2 mg IV NOW ONE Stop: 03/03/25 08:03 Last Admin: 03/03/25 08:15 Dose: 2 mg Documented By: ROCCO Vital Signs Vital signs: Vital Signs - 8 hr 03/03/25 08:02 03/03/25 08:07 03/03/25 08:09 Temperature 97 F L Pulse Rate 105 H 103 H 99 H Respiratory Rate 40 H Blood Pressure 177/92 H Pulse Oximetry 99 86 L 96 Oxygen Delivery Method BiPAP Room Air BiPAP Fraction of Inspired Oxygen 03/03/25 08:09 03/03/25 08:15 03/03/25 08:21 Temperature Pulse Rate Respiratory Rate Blood Pressure 177/92 H 177/82 H Pulse Oximetry Oxygen Delivery Method BiPAP Fraction of Inspired Oxygen 32 03/03/25 08:30 03/03/25 08:30 03/03/25 08:48 Temperature Pulse Rate 105 H 103 H Respiratory Rate 26 H Blood Pressure 155/81 H Pulse Oximetry 94 95 Oxygen Delivery Method BiPAP BiPAP Fraction of Inspired Oxygen 03/03/25 09:00 03/03/25 09:01 03/03/25 09:01 Temperature Pulse Rate 102 H 102 H Respiratory Rate Blood Pressure 128/68 Pulse Oximetry 96 96 Oxygen Delivery Method Fraction of Inspired Oxygen 03/03/25 09:30 03/03/25 09:30 03/03/25 10:00 Temperature Pulse Rate 96 H Respiratory Rate Blood Pressure 108/61 102/58 L Pulse Oximetry 93 Oxygen Delivery Method BiPAP Fraction of Inspired Oxygen 03/03/25 10:00 03/03/25 10:30 03/03/25 10:30 Temperature Pulse Rate 96 H 98 H Respiratory Rate Blood Pressure 108/57 L Pulse Oximetry 95 96 Oxygen Delivery Method Fraction of Inspired Oxygen MDM - Asthma Lab Data 03/03/25 08:15 03/03/25 08:15 Labs: Lab Results 03/03/25 Range/Units 08:15 WBC 20.3 H (4.5-11.0) X10^3/uL RBC 5.04 (4.0-5.2) X10^6/uL Hgb 15.0 (12.0-16.0) g/dL Hct 44.4 (36-46) % MCV 88.0 (80-100) fL MCH 29.6 (26-34) PG MCHC 33.7 (30-36) % RDW 14.4 (11.6-14.8) % Plt Count 343 (150-400) X10^3/uL Neut % (Auto) 54.1 (50-75) % Lymph % (Auto) 32.7 (25-40) % [place] % (Auto) 6.2 (3-14) % Eos % (Auto) 6.4 H (2-4) % Baso % (Auto) 0.6 (0-2) % Neut # (Auto) 21368 H (4697-9740) /uL Lymph # (Auto) 6600 H (1797-4859) /uL [place] # (Auto) 1300 H (0-900) /uL Eos # (Auto) 1300 H (0-450) /uL Baso # (Auto) 100 (0-100) /uL PT 10.3 (9.4-12.5) SECONDS INR 0.9 (0.9-1.3) Sodium 138 (137-145) mmol/L Potassium 4.3 (3.4-5.1) mmol/L Chloride 106 (98-107) mmol/L Carbon Dioxide 21 L (22-32) mmol/L BUN 19 H (7-17) mg/dL Creatinine 1.31 H (0.52-1.04) mg/dL Estimated GFR 48 L (>60) mL/min BUN/Creatinine Ratio 14.5 (6-22) Glucose 175 H (70-99) mg/dL Lactate 1.6 (0.7-2.1) mmol/L Calcium 10.5 H (8.4-10.2) mg/dL Total Bilirubin 0.8 (0.2-1.3) mg/dL AST 28 (14-36) IU/L ALT 25 (<35) IU/L Alkaline Phosphatase 94 (38-126) U/L Troponin I < 0.012 (0.01-0.034) ng/mL NT-Pro-B Natriuret Pep 34 (<125) pg/mL Total Protein 7.6 (6.3-8.2) g/dL Albumin 4.6 (3.5-5.0) g/dL Globulin 3.0 (1.7-4.1) g/dL Albumin/Globulin Ratio 1.5 (1.0-2.8) Imaging Data Chest x-ray: Radiologist's Impression: [address] [address] XRay Report Signed Patient: Indiana Howell MR#: [id number] : 1970 Acct:[id number] Age/Sex: 54 / F Date of Service: 01/28/25 Loc: ED Accession Number: [id number] Procedure: XR chest 1V Ordering Provider: Marquita Xavier MD PROCEDURE: XR CHEST 1V INDICATIONS: Shortness of breath TECHNIQUE: One view of the chest was acquired. COMPARISON: [facility], CR, XR CHEST 1V, 12/13/2024, 16:56. [facility], CR, XR CHEST 1V, 11/30/2024, 8:45. FINDINGS: Surgical changes and devices: None. Lungs and pleura: Lungs are clear. No pleural effusions or pneumothorax. Mediastinum: Mediastinal contours appear normal. Heart size is normal. Bones and chest wall: No suspicious bony lesions. Overlying soft tissues appear unremarkable. IMPRESSION: No acute cardiopulmonary abnormality is seen. ECG Data Interpretation: Sinus Tach HR 106 LA 118 QRS [address]-t wave change Change from 01/28/25 MDM Narrative Medical decision making narrative: All lab work EKG chest x-ray vital signs nurse triage note medication list and all previous ER visits reviewed. Patient was given 2 DuoNebs and Solu-Medrol 125 mg by EMS along with magnesium 2 g IV patient. Patient was placed on BiPAP and also given DuoNeb here and currently now on 2 L O2 nasal cannula satting at 94% on room air. Patient was given Rocephin 1 g and Zithromax 500 mg IV. Case discussed with Dr. Ortiz who has graciously accepted patient for inpatient admission. Discharge Plan Departure Patient Disposition: Admitted As Inpatient Clinical Impression: Acute exacerbation of chronic obstructive airways disease Prescriptions: No Action Stiolto Respimat 2.5-2.5 mcg/actuation mist 2 puff inhalation DAILY Qty: 4 11RF albuterol sulfate 90 mcg/actuation HFA aerosol inhaler 2 puff inhalation Q6H PRN (Reason: shortness of breath or wheezing) Qty: 8.5 5RF (DME) nebulizer and compressor Device See Rx Instructions .Route Qty: 1 0RF Rx Instructions: As directed (DME) nebulizer accessories Kit See Rx Instructions .Route Qty: 1 0RF Rx Instructions: As directed ipratropium-albuterol 0.5 mg-3 mg(2.5 mg base)/3 mL solution for nebulization 3 ml inhalation QID PRN (Reason: shortness of breath or wheezing) Qty: 180 0RF prednisone 20 mg tablet See Rx Instructions .ROUTE .COMPLEX Qty: 12 0RF Rx Instructions: 40 mg daily 3 days, 20mg daily 4 days, 10mg daily 4 days fluticasone propion-salmeterol 232-14 mcg/actuation aerosol powdr breath activated 1 inh inhalation BID Qty: 1 1RF nicotine 7 mg/24 hr patch 24 hour 1 patch transdermal Q24H Qty: 14 3RF varenicline tartrate [Chantix Starting Month Box] 0.5 mg (11)- 1 mg (42) tablets,dose pack See Rx Instructions PO PER PKG DIR Qty: 53 0RF Rx Instructions: PO PER PKG DIR
[2025-03-03] MEDS: LORazepam 2 MG/ML INJ IV (08:15)
--- NOTE | 2025-03-03 08:18 | EKG_ITS ---
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
--- NOTE | 2025-03-03 08:18 | DI.RAD.S_ITS ---
PROCEDURE: XR CHEST 1V INDICATIONS: Shortness of breath TECHNIQUE: One view of the chest was acquired. COMPARISON: [facility], , XR CHEST 1V, 01/28/2025, 10:54. [facility], CR, XR CHEST 1V, 12/13/2024, 16:56. FINDINGS: Surgical changes and devices: EKG leads overlie the chest. Lungs and pleura: Lungs are clear. No pleural effusions or pneumothorax. Mediastinum: Mediastinal contours appear normal. Heart size is normal. Bones and chest wall: No suspicious bony lesions. Overlying soft tissues appear unremarkable. IMPRESSION: No acute cardiopulmonary abnormality is seen. Dictated by: Esdras Rocha M.D. on 03/03/2025 at 11:30 Approved by: Esdras Rocha M.D. on 03/03/2025 at 11:31
[2025-03-03 08:27] LABS: Add Manual Diff / Slide Review NO; Basophils Absolute Auto 100 /uL (0-100); Basophils Percent Auto 0.6 % (0-2); Eosinophils Absolute Auto 1300 /uL (0-450); Eosinophils Percent Auto 6.4 % (2-4); Hematocrit 44.4 % (36-46); Lymphocytes Absolute Auto 6600 /uL (1100-4500); Lymphocytes Percent Auto 32.7 % (25-40); Mean Corpuscular HGB Conc 33.7 % (30-36); Mean Corpuscular Hemoglobin 29.6 PG (26-34); Monocytes Absolute Auto 1300 /uL (0-900); Monocytes Percent Auto 6.2 % (3-14); Neutrophils Absolute Auto 11000 /uL (1500-7000); Neutrophils Percent Auto 54.1 % (50-75); Platelet Count 343 X10^3/uL (150-400); Red Blood Cell Count 5.04 X10^6/uL (4.0-5.2); Red Cell Distribution Width 14.4 % (11.6-14.8); White Blood Cell Count 20.3 X10^3/uL (4.5-11.0)
[2025-03-03] MEDS: ALBUTEROL 2.5 MG/3 ML NEB (ADULT) INH ×3 (08:32→08:34)
[2025-03-03 08:35] LABS: INR 0.9 (0.9-1.3); Prothrombin Time 10.3 SECONDS (9.4-12.5)
--- NOTE | 2025-03-03 08:35 | PC.NURSE ---
Addendum entered by Chandni Rojas R.N. 03/03/25 09:45: Pt remains on bipap. Continuing to refuse cxr and respiratory swab. Dr Hinojosa notified. Original Note: Pt arrived to ED today with difficulty breathing that started last night. Pt ran out of inhaler and has been unable to refill due to certain socioeconomic barriers. Pt arrived in tripod position, pursed lip breathing & area around lips blue. O2 89% on RA, RR 40 & severe respiratory distress with accessory muscle use. EMS started 2g mag, duonebs & attempted c-pap but report pt would not tolerate in ambulace. Also, 125mg of solumedrol given by [facility]. Pt very anxious during triage and unable to find position of relief or comfort. Upon arrival RT placed pt on bipap & tolerating well at this time. Dr Hinojosa at bedside during triage. Hx of asthma & COPD. Pt remains on Bipap and improving. 2mg of lorazepam given and pt states that she is starting to feel less anxious and while tolerating bipap. Pt sitting upright in bed. Refusing cxr & respiratory swab. Pt does not want to be exposed to more radiation & is adamant respiratory panel will be negative because she had it done recently. RN explained that pt may have been exposed to respiratory illness since that time and it could be the cause of her acute respiratory distress and asthma exacerbation. RN discussed with pt at length the importance of diagnostic imaging, bloodwork and viral illness panel in order to determine and treat the root cause of respiratory distress. Pt a&ox4.
[2025-03-03 08:40] LABS: Alanine Aminotransferase 25 IU/L (<35); Albumin 4.6 g/dL (3.5-5.0); Albumin Globulin Ratio 1.5 (1.0-2.8); Alkaline Phosphatase 94 U/L (38-126); Aspartate Aminotransferase 28 IU/L (14-36); BUN Creatinine Ratio 14.5 (6-22); Bilirubin Total 0.8 mg/dL (0.2-1.3); Blood Urea Nitrogen 19 mg/dL (7-17); Calcium 10.5 mg/dL (8.4-10.2); Carbon Dioxide 21 mmol/L (22-32); Chloride 106 mmol/L (98-107); Estimated Glomerular Filt Rate 48 mL/min (>60); Glucose 175 mg/dL (70-99); HEMOLYSIS < 15 (0-50); Potassium 4.3 mmol/L (3.4-5.1); Sodium 138 mmol/L (137-145); Total Protein 7.6 g/dL (6.3-8.2)
[2025-03-03 08:41] LABS: Lactate (Lactic Acid) 1.6 mmol/L (0.7-2.1)
[2025-03-03 08:52] LABS: NT-proBNP (BNP-Adult 18+) 34 pg/mL (<125); Troponin I < 0.012 ng/mL (0.01-0.034)
--- NOTE | 2025-03-03 10:55 | PC.NURSE ---
Pt turning to side and causing bipap alarm to go off. RT called to bedside to check settings and adjust. Pt still tolerating. Dr Hinojosa updated.
--- NOTE | 2025-03-03 11:05 | PC.NURSE ---
Pt taken off bipap and placed on 2L NC
--- NOTE | 2025-03-03 12:16 | PM.CALLCOV.1 ---
Call Coverage Note Note Narrative of Care Provided: 54 F with PMH of COPD, tobacco use here with shortness of breath. On bipap initially now improved to 2L. Recommend ceftriaxone and azithromycin. Please check ABG prior to admission to see if hypercapnic / need for further BiPAP as this would require ICU admission vs acute care.
[2025-03-03 12:18] LABS: Influenza A - CEPHEID Flu A NEGATIVE (NEGATIVE); Influenza B - CEPHEID Flu B NEGATIVE (NEGATIVE); Respiratory Syncytial Virus Negative (Negative)
[2025-03-03 12:19] LABS: COVID-19 CEPHEID 4-PLEX PCR Negative (Negative)
[2025-03-03] MEDS: cefTRIAXone 1,000 MG in SODIUM CHLORIDE 0.9% 100 ML 200 MG IV (12:31)
[2025-03-03 14:01] LABS: Allen Test for ABG Passed? Positive; Base Excess ABG -1.6 mmol/L (-2-3); Blood Gas Collection Site Left Radial; HCO3 ABG 22 mmol/L (23-27); Oxygen Saturation ABG 95 % (95-100); PCO2 ABG 32.1 mmHg (35-45); PO2 ABG 73 mmHg (80-100); TCO2 ABG 21 mmol/L (23-27); pH ABG 7.44 (7.35-7.45)
--- NOTE | 2025-03-03 14:17 | PM.HP.1 ---
History of Present Illness History of Present Illness Date Patient Seen: 03/03/25 Time Patient Seen: 15:18 Chief complaint: Sever asthma, SOB Narrative: Is a 54-year-old female with past medical history of tobacco use and COPD who presents with worsening shortness of breath cough and chest discomfort over the past week or so. Patient states that she is chronically short of breath but over the past week or so she has increased short of breath with progression to severe symptoms starting yesterday evening. She has tried all of her inhalers without success, including nebulizer therapies at home. Her cough has increased over the past week with increased sputum production and frequency, though her sputum remains clear at this time. She has known grass allergies as well and complains of rhinorrhea. She was managed with BiPAP initially in the emergency room with improvement after multiple rounds of nebulizers, she was given 125 mg of Solu-Medrol with EMS. She continued to be slightly tachypneic and hypoxic in the emergency room when medicine was asked for admission. In the emergency room patient was hypoxic to 86% on room air, improved with 2 L and mildly tachypneic with marked improvement after initial BiPAP therapy. White blood cell count was elevated at 20.3 on admission labs, ABG showed no significant hypercapnia. Creatinine was mildly elevated at 1.31, and calcium was high at 10.5 as well. Troponin was negative as was proBNP. Chest x-ray was unremarkable. COVID, flu, and RSV were negative by PCR. Patient was admitted for further management of COPD exacerbation with acute respiratory failure and probable bacterial pneumonia. [facility] Medical History (Updated 03/03/25 @ 12:20 by Dawit Hinojosa DO) COPD (chronic obstructive pulmonary disease) Tobacco abuse Social History household members: family and children Smoking Status: Current every day smoker alcohol intake: never Meds Home Medications and Allergies Home Medications Medication Instructions Recorded Confirmed Type nicotine 7 mg/24 hr daily 1 patch transdermal Q24H #14 ea 12/11/24 03/03/25 Rx transdermal patch varenicline tartrate 0.5 mg (11)-1 See Rx Instructions PO PER PKG DIR 12/11/24 03/03/25 Rx mg (42) tablets in a dose pack #53 ea (Chantix Starting Month Box) albuterol sulfate 90 mcg/actuation 2 puff inhalation Q6H PRN 01/14/25 03/03/25 Rx aerosol inhaler shortness of breath or wheezing #8.5 grams ipratropium 0.5 mg-albuterol 3 mg 3 ml inhalation QID PRN shortness 01/28/25 03/03/25 Rx (2.5 mg base)/3 mL nebulization of breath or wheezing #180 mL soln nebulizer accessories #1 ea 01/28/25 03/03/25 Rx nebulizer and compressor #1 ea 01/28/25 03/03/25 Rx Allergies Allergy/AdvReac Type Severity Reaction Status Date / Time codeine Allergy Intermediate Hives Verified 01/28/25 10:52 Review of Systems Review of Systems Narrative: All other systems reviewed with the patient and are negative unless otherwise stated. Exam Vital Signs (past 8 hours): - 03/03/25 08:02 03/03/25 08:07 03/03/25 08:09 Temperature 97 F L Pulse Rate 105 H 103 H 99 H Respiratory Rate 40 H Blood Pressure 177/92 H Pulse Oximetry 99 86 L 96 Oxygen Delivery Method BiPAP Room Air BiPAP Oxygen Flow Rate Fraction of Inspired Oxygen 03/03/25 08:09 03/03/25 08:15 03/03/25 08:21 Temperature Pulse Rate Respiratory Rate Blood Pressure 177/92 H 177/82 H Pulse Oximetry Oxygen Delivery Method BiPAP Oxygen Flow Rate Fraction of Inspired Oxygen 32 03/03/25 08:30 03/03/25 08:30 03/03/25 08:48 Temperature Pulse Rate 105 H 103 H Respiratory Rate 26 H Blood Pressure 155/81 H Pulse Oximetry 94 95 Oxygen Delivery Method BiPAP BiPAP Oxygen Flow Rate Fraction of Inspired Oxygen 03/03/25 09:00 03/03/25 09:01 03/03/25 09:01 Temperature Pulse Rate 102 H 102 H Respiratory Rate Blood Pressure 128/68 Pulse Oximetry 96 96 Oxygen Delivery Method Oxygen Flow Rate Fraction of Inspired Oxygen 03/03/25 09:30 03/03/25 09:30 03/03/25 10:00 Temperature Pulse Rate 96 H Respiratory Rate Blood Pressure 108/61 102/58 L Pulse Oximetry 93 Oxygen Delivery Method BiPAP Oxygen Flow Rate Fraction of Inspired Oxygen 03/03/25 10:00 03/03/25 10:30 03/03/25 10:30 Temperature Pulse Rate 96 H 98 H Respiratory Rate Blood Pressure 108/57 L Pulse Oximetry 95 96 Oxygen Delivery Method Oxygen Flow Rate Fraction of Inspired Oxygen 03/03/25 11:00 03/03/25 11:00 03/03/25 11:30 Temperature Pulse Rate 91 H 97 H Respiratory Rate Blood Pressure 117/76 Pulse Oximetry 97 94 Oxygen Delivery Method Oxygen Flow Rate Fraction of Inspired Oxygen 03/03/25 11:30 03/03/25 12:00 03/03/25 12:00 Temperature Pulse Rate 96 H Respiratory Rate Blood Pressure 122/63 123/73 Pulse Oximetry 95 Oxygen Delivery Method Oxygen Flow Rate Fraction of Inspired Oxygen 03/03/25 12:30 03/03/25 12:30 03/03/25 13:26 Temperature 96.9 F L Pulse Rate 96 H 93 H Respiratory Rate 22 Blood Pressure 124/59 L 118/61 Pulse Oximetry 96 94 Oxygen Delivery Method Oxygen Flow Rate 2 Fraction of Inspired Oxygen Fraction of Inspired Oxygen 32 Oxygen Delivery Method BiPAP Oxygen Flow Rate 2 Narrative Exam Narrative: General:? Patient is well developed and well nourished, in no distress at this time. HEENT:? Normocephalic, atraumatic, extraocular muscles intact, oral pharynx is clear and mucous membranes are moist. Neck: supple and symmetric, trachea is midline, no cervical adenopathy. Negative for JVD Chest:? Normal AP diameter and contour without kyphoscoliosis, no tachypnea, equal chest rise bilaterally. Lungs:? CTA b/l no wheezing rhonchi or rales. Cardio:?RRR no m/r/g. Abdomen: S NT ND. No CVA tenderness. Musculoskeletal:? Muscle strength and tone are equal within normal limits, no deformity. Extremities: No edema or joint effusions. No cyanosis or clubbing. Skin:? Pale,? Warm to touch,dry and intact without rashes, ulcerations or petechiae.? Neuro:? Alert and orientated x3,? sensation to touch intact in all extremities, no gross deficits noted of cranial nerves. Psych:? Patient has a well-kept appearance, appropriate affect, mental status attitude thought context and judgment are appropriate for age. Objective ECG Impression: Sinus tachycardia, with no acute ischemia as interpreted by me. Labs 03/03/25 08:15 03/03/25 08:15 Labs: Laboratory Results - last 24 hr 03/03/25 03/03/25 03/03/25 08:15 11:21 13:56 WBC 20.3 H RBC 5.04 Hgb 15.0 Hct 44.4 MCV 88.0 MCH 29.6 MCHC 33.7 RDW 14.4 Plt Count 343 Neut % (Auto) 54.1 Lymph % (Auto) 32.7 [place] % (Auto) 6.2 Eos % (Auto) 6.4 H Baso % (Auto) 0.6 Neut # (Auto) 72049 H Lymph # (Auto) 6600 H [place] # (Auto) 1300 H Eos # (Auto) 1300 H Baso # (Auto) 100 PT 10.3 INR 0.9 ABG Sample Site Left radial ABG pH 7.44 ABG pCO2 32.1 L ABG pO2 73 L ABG HCO3 22 L ABG Total CO2 21 L ABG O2 Saturation 95 ABG Base Excess -1.6 Sumeet Test Positive FiO2 % 28.0 % Sodium 138 Potassium 4.3 Chloride 106 Carbon Dioxide 21 L BUN 19 H Creatinine 1.31 H Estimated GFR 48 L BUN/Creatinine Ratio 14.5 Glucose 175 H Lactate 1.6 Calcium 10.5 H Total Bilirubin 0.8 AST 28 ALT 25 Alkaline Phosphatase 94 Troponin I < 0.012 NT-Pro-B Natriuret Pep 34 Total Protein 7.6 Albumin 4.6 Globulin 3.0 Albumin/Globulin Ratio 1.5 SARS-CoV-2 (PCR) Negative Influenza A (RT-PCR) Flu a negative Influenza B (RT-PCR) Flu b negative RSV (PCR) Negative Assessment & Plan Assessment & Plan narrative: 1. COPD with severe exacerbation - given solumedrol 125 mg with EMS - continue prednisone 40 mg daily - outpatient follow up with pulmonary recommended, though it sounds like she is having difficulties with insurance. - continue duonebs q4 and albuterol prn, discussed with respiratory therapist today. - initially requiring BiPAP in the ER for respiratory distress, now improved after initial therapies. 2. Acute respiratory failure with hypoxemia - likely secondary to #1, already improving from need for BiPAP to now 2L NC. - Goal O2 89-96% while on therapy, wean as tolerated. 3. Bacterial pneumonia, acute, present on admission - given ceftriaxone in the ER, patient with site reaction. - transition to PO antibiotics, will give augmentin starting tomorrow AM - WBC count of 20, possible due to steroids but unclear at this time. 4. Tobacco use - nicotine patch. 5. Anxiety, chronic - okay for small doses of ativan for severe anxiety while in the hospital 6. Elevated Cr - Cr 1.31 today, baseline around 1.1. Will monitor with BMP. Code: Full, surrogate is patient's spouse DVT: Lovenox daily I have utilized all available immediate resources to obtain, update, or review the patient's current medications. Dispo: patient admitted under observation status. Anticipate discharge home tomorrow if resolution of hypoxia. Additional history obtained via discussions with the ER provider. These discussions contributed to the creation of the above assessment and plan. I have reviewed patient's presenting documentation, labs, and imaging personally. Time-Based Coding :: [TOTAL MINUTES] spent with patient and on the chart (including review of chart, obtaining history, exam, reviewing outside data, placing orders, documenting exam and treatment plan, and counseling patient) on [DATE].
--- NOTE | 2025-03-03 15:08 | PC.NURSE ---
Addendum entered by Giovanna Muñoz R.N. 03/03/25 17:55: Patient ate well at dinner, she is tired and resting. She was off oxygen for a bit and was having some sob. She is in the mid 90s. Will check on her soon and see how she is breathing and see about lowering the o2 from 1L to 0.5L. Original Note: Patient admitted for copd and increased sob. Her lung sounds are tight, diminshed, and she has wheezes. Patient is on 2L of oxygen and sats around 94%. She has some scratches on the inside of her arms from dog scratches. She is resting now, Abgs done and results in the chart.
[2025-03-03] MEDS: ALBUTEROL/IPRATROPIUM 3 ML AMPUL INH ×2 (15:40→19:42)
[2025-03-03] MEDS: LORazepam 2 MG/ML INJ 1 MG IV (22:55)
[2025-03-04] VITALS (8 sets, daily range): BP systolic 109–124; BP diastolic 59–67; PULSE 90–102; RESP 16–20; TEMP 36.1–36.6; O2SAT 93–98
--- NOTE | 2025-03-04 02:28 | PC.NURSE ---
mirror framer RN pulled ativan for patient, RN scanned patient band, then scanned medication, and administered 1mg as ordered in EMAR, diluted with NS flush, followed with another flush. RN after administering medication put ativan canister into Sharps container. RN then thought for a moment realizing that No waste was done in medication room when pulled from pyxis. RN then informed bogger operator of incident, uncertain why RN was able to pull ativan 2mg vial without requiring a waste witness and administering the 1mg dose. Charge informed RN to call in morning at 0630 to speak with Day shift pharmacy about issue.
[2025-03-04] MEDS: ALBUTEROL/IPRATROPIUM 3 ML AMPUL INH ×3 (03:12→11:31)
[2025-03-04 05:57] LABS: BUN Creatinine Ratio 20.4 (6-22); Blood Urea Nitrogen 21 mg/dL (7-17); Calcium 9.8 mg/dL (8.4-10.2); Carbon Dioxide 21 mmol/L (22-32); Chloride 108 mmol/L (98-107); Estimated Glomerular Filt Rate > 60 mL/min (>60); Glucose 110 mg/dL (70-99); HEMOLYSIS < 15 (0-50); Magnesium 2.5 mg/dL (1.6-2.3); Potassium 4.5 mmol/L (3.4-5.1); Sodium 138 mmol/L (137-145)
[2025-03-04 06:25] LABS: Add Manual Diff / Slide Review NO; Basophils Absolute Auto 0 /uL (0-100); Basophils Percent Auto 0.1 % (0-2); Eosinophils Absolute Auto 0 /uL (0-450); Hematocrit 40.7 % (36-46); Hemoglobin 13.8 g/dL (12.0-16.0); Lymphocytes Absolute Auto 1400 /uL (1100-4500); Lymphocytes Percent Auto 8.2 % (25-40); Mean Corpuscular HGB Conc 33.9 % (30-36); Mean Corpuscular Hemoglobin 29.7 PG (26-34); Mean Corpuscular Volume 87.6 fL (80-100); Monocytes Absolute Auto 500 /uL (0-900); Monocytes Percent Auto 3.1 % (3-14); Neutrophils Absolute Auto 15400 /uL (1500-7000); Neutrophils Percent Auto 88.6 % (50-75); Platelet Count 296 X10^3/uL (150-400); Red Blood Cell Count 4.64 X10^6/uL (4.0-5.2); Red Cell Distribution Width 14.5 % (11.6-14.8); White Blood Cell Count 17.4 X10^3/uL (4.5-11.0)
[2025-03-04] MEDS: AMOXICILLIN/CLAV 875/125 MG 1 TAB PO (08:11)
[2025-03-04] MEDS: predniSONE 20 MG TABLET 40 MG PO (08:11)
[2025-03-04] MEDS: NICOTINE 14 PATCH 14 MG TOP (08:12)
[2025-03-04] MEDS: CALCIUM CARBONATE 500 MG TAB 1000 MG PO (10:33)
--- NOTE | 2025-03-04 12:02 | PM.DS.1 ---
History of Present Illness History of Present Illness Date Patient Seen: 03/04/25 Time Patient Seen: 12:03 Chief complaint: Sever asthma, SOB Narrative: Per admitting provider: Is a 54-year-old female with past medical history of tobacco use and COPD who presents with worsening shortness of breath cough and chest discomfort over the past week or so. Patient states that she is chronically short of breath but over the past week or so she has increased short of breath with progression to severe symptoms starting yesterday evening. She has tried all of her inhalers without success, including nebulizer therapies at home. Her cough has increased over the past week with increased sputum production and frequency, though her sputum remains clear at this time. She has known grass allergies as well and complains of rhinorrhea. She was managed with BiPAP initially in the emergency room with improvement after multiple rounds of nebulizers, she was given 125 mg of Solu-Medrol with EMS. She continued to be slightly tachypneic and hypoxic in the emergency room when medicine was asked for admission. In the emergency room patient was hypoxic to 86% on room air, improved with 2 L and mildly tachypneic with marked improvement after initial BiPAP therapy. White blood cell count was elevated at 20.3 on admission labs, ABG showed no significant hypercapnia. Creatinine was mildly elevated at 1.31, and calcium was high at 10.5 as well. Troponin was negative as was proBNP. Chest x-ray was unremarkable. COVID, flu, and RSV were negative by PCR. Patient was admitted for further management of COPD exacerbation with acute respiratory failure and probable bacterial pneumonia. Discharge Providers Provider Date of admission: 03/03/25 12:36 Discharge Date: 03/04/25 Primary care physician: Raul Rico MD Discharge provider: Lex Perez DO Summary Hospital Course Discharge Diagnosis: 1. COPD with severe exacerbation 2. Acute respiratory failure with hypoxemia 3. Bacterial pneumonia, acute, present on admission 4. Tobacco use 5. Anxiety, chronic 6. Elevated Cr Hospital Course: This is a 54 year old female with PMH of tobacco use, COPD, and anxiety who presented with increasing cough frequency and production, along with hypoxia and shortness of breath consistent with COPD exacerbation. She was treated for possible bacterial pneumonia given leukocytosis on presentation. She had also run out of her controller inhaler due to insurance difficulties. After initiation of steroids and antibiotics, she improved more quickly than anticipated. Her hypoxia resolved fairly shortly after admission, and she appeared comfortable on the day of discharge. She requested prolonged taper of steroids based on prior COPD flare treatments, so a 10 day taper was sent to her pharmacy. She had a list of limited controller inhalers covered by her insurance, so symbicort was sent to her pharmacy. She was counseled on proper use of albuterol and nebulizer treatments for shortness of breath or wheezing only, and ideally she not use these the majority of the time. She was also sent with a short course of antibiotics for possible pneumonia. She is aware of the relation of her shortness of breath, COPD and her smoking, and she is working on cutting down dramatically and has been doing much better with chantix. Cr was 1.3 on admission, improved to 1.03 the day after admission likely due to the above therapies. Recommend patient try to establish with local primary care, she may need new referral to pulmonology, or may need to pay out of network coverage with her insurance to see providers here. Time Spent with Patient Time spent: Greater than 30 minutes Exam Vital Signs (past 8 hours): - 03/04/25 07:00 03/04/25 07:43 03/04/25 08:00 Temperature 97.0 F L Pulse Rate 94 H 91 H Respiratory Rate 20 16 Blood Pressure 109/64 Pulse Oximetry 95 93 Oxygen Delivery Method Nasal Cannula Nasal Cannula Oxygen Flow Rate 1 1 03/04/25 10:00 03/04/25 11:33 Temperature Pulse Rate 95 H Respiratory Rate 20 Blood Pressure Pulse Oximetry 95 97 Oxygen Delivery Method Room Air Nasal Cannula Oxygen Flow Rate 0 1 Fraction of Inspired Oxygen 32 Oxygen Delivery Method Nasal Cannula Oxygen Flow Rate 1 Narrative Exam Narrative: General:? Patient is well developed and well nourished, in no distress at this time. HEENT:? Normocephalic, atraumatic, extraocular muscles intact, oral pharynx is clear and mucous membranes are moist. Neck: supple and symmetric, trachea is midline, no cervical adenopathy. Negative for JVD Chest:? Normal AP diameter and contour without kyphoscoliosis, no tachypnea, equal chest rise bilaterally. Lungs:? CTA b/l no wheezing rhonchi or rales. Cardio:?RRR no m/r/g. Abdomen: S NT ND. No CVA tenderness. Musculoskeletal:? Muscle strength and tone are equal within normal limits, no deformity. Extremities: No edema or joint effusions. No cyanosis or clubbing. Skin:? Pale,? Warm to touch,dry and intact without rashes, ulcerations or petechiae.? Neuro:? Alert and orientated x3,? sensation to touch intact in all extremities, no gross deficits noted of cranial nerves. Psych:? Patient has a well-kept appearance, appropriate affect, mental status attitude thought context and judgment are appropriate for age. Objective Labs 03/04/25 04:50 03/04/25 04:50 Labs: Laboratory Results - last 24 hr 03/03/25 03/03/25 03/04/25 11:21 13:56 04:50 WBC 17.4 H RBC 4.64 Hgb 13.8 Hct 40.7 MCV 87.6 MCH 29.7 MCHC 33.9 RDW 14.5 Plt Count 296 Neut % (Auto) 88.6 H D Lymph % (Auto) 8.2 L D [place] % (Auto) 3.1 Eos % (Auto) 0.0 L Baso % (Auto) 0.1 Neut # (Auto) 12177 H Lymph # (Auto) 1400 [place] # (Auto) 500 Eos # (Auto) 0 Baso # (Auto) 0 ABG Sample Site Left radial ABG pH 7.44 ABG pCO2 32.1 L ABG pO2 73 L ABG HCO3 22 L ABG Total CO2 21 L ABG O2 Saturation 95 ABG Base Excess -1.6 Sumeet Test Positive FiO2 % 28.0 % Sodium 138 Potassium 4.5 Chloride 108 H Carbon Dioxide 21 L BUN 21 H Creatinine 1.03 Estimated GFR > 60 BUN/Creatinine Ratio 20.4 Glucose 110 H Calcium 9.8 Magnesium 2.5 H SARS-CoV-2 (PCR) Negative Influenza A (RT-PCR) Flu a negative Influenza B (RT-PCR) Flu b negative RSV (PCR) Negative [facility] Medical History (Updated 03/03/25 @ 12:20 by Dawit Hinojosa DO) COPD (chronic obstructive pulmonary disease) Tobacco abuse Social History household members: family and children Smoking Status: Current every day smoker alcohol intake: never Discharge Plan Discharge Plan Patient Disposition: Home Provider Discharge Comment: You were admitted to the hospital with COPD exacerbation. Try symbicort for controller medication at home, hopefully you tolerate this better. Follow up with pulmonology as previously scheduled. Try to establish with PCP as well. Discharge orders & Medications Prescriptions: New amoxicillin-pot clavulanate 875-125 mg Tablet 1 tab PO BID 5 Days Qty: 10 0RF prednisone 10 mg tablet 10 mg PO DIRECTED 10 Days Qty: 10 0RF Rx Instructions: 40 mg daily x4 days, followed by 30 mg daily x2 days, 20 mg daily x2 days, 10 mg daily x2 days, then stop. budesonide-formoterol [Symbicort] 160-4.5 mcg/actuation HFA aerosol inhaler 2 puff inhalation BID 30 Days Qty: 10.2 2RF albuterol sulfate 2.5 mg/0.5 mL solution for nebulization 2.5 mg inhalation Q6H PRN (Reason: shortness of breath or wheezing) 30 Days Qty: 30 0RF Rx Instructions: for up to 3 doses Continued (DME) nebulizer and compressor Device See Rx Instructions .Route Qty: 1 0RF Rx Instructions: As directed (DME) nebulizer accessories Kit See Rx Instructions .Route Qty: 1 0RF Rx Instructions: As directed ipratropium-albuterol 0.5 mg-3 mg(2.5 mg base)/3 mL solution for nebulization 3 ml inhalation QID PRN (Reason: shortness of breath or wheezing) 30 Days Qty: 180 0RF albuterol sulfate 90 mcg/actuation HFA aerosol inhaler 2 puff inhalation Q6H PRN (Reason: shortness of breath or wheezing) 30 Days Qty: 8.5 2RF nicotine 7 mg/24 hr patch 24 hour 1 patch transdermal Q24H Qty: 14 3RF varenicline tartrate [Chantix Starting Month Box] 0.5 mg (11)- 1 mg (42) tablets,dose pack See Rx Instructions PO PER PKG DIR Qty: 53 0RF Rx Instructions: PO PER PKG DIR Follow up/Referrals: Raul Rico MD [Primary Care Provider] - Discharge Health Status Multidrug resistant organism: No MDRO Diet/Activity/Treatments Diet: Diet as Tolerated and Regular Activity: As tolerated Visit Report/Discharge Packet Instructions: DI for Chronic Obstructive Pulmonary Disease Stand Alone Forms: Patient Portal/API, Stroke Signs & Symptoms Discharge Data Primary Care Provider: Raul Rico Attending Provider: Lex Perez Admit Date/Time: 03/03/25 12:36
--- NOTE | 2025-03-04 12:28 | CM.DANOTE ---
Initial DCP Assessment Note Pt is a 54 yo female, resident of [place], admitted OBS for management of severe SOB, PNA, COPD exacerbation. PCP: Raul Rico Payer: [facility] Reviewed chart, pt discussed in multidisciplinary rounds this morning. Patient has been discharged home today, close outpatient f/u recommended. Patient lives independently with family in an [place], patient appears to be at functional and cognitive baseline at discharge. No barriers identified at this time to patient's safe discharge home w/family to assist. CM team will plan to follow clinical course closely in case any DC needs or concerns arise. ARYA Hinds Discharge Planning/Care Management CM Discharge Assessment Start: 03/04/25 12:26 Freq: Status: Active Protocol: Document 03/04/25 12:26 JASMEET (Rec: 03/04/25 12:28 JASMEET [id number]) Discharge Planning Assessment Assigned Pediatric Associate ARYA Au DPOA/Assigned Designee Name Mikayla Ayoub mother Contact Information [phone] Advance Directives? No History Provided By Patient,Medical Record Has Patient been admitted in last 30 No days? Prior Living Arrangements Mobile home Household Members family,children Type of transporation used prior to Drives own vehicle admit Independent with ADL's Yes Is patient alert and oriented? Yes Barriers to Discharge No Discharge Plan Home Transportation Arrangement Self Referrals Initiated None needed
--- NOTE | 2025-03-04 13:58 | PC.NURSE ---
Day shift: Patient weaned off O2 this AM, maintaining O2 sats above 94 percent on room air. Discharge instructions gone over with patient, all questions answered, patient stated understanding. PIV x2 removed prior to discharge. All belongings with patient. AKIRA Frey escorted patient to exit via wheelchair, where patient plans to meet her roommate to take her home.
== END 2025-03-04 13:59 | disposition home or self-care (01) ==
LOC: ED 12:20 → AC 14:32
PROVIDERS: Admitting Provider Internal Medicine; Emergency Provider Family Medicine; PCP Internal Medicine; Referring Provider Family Medicine; Visit Provider Internal Medicine
DX: J96.01 Acute respiratory failure with hypoxia (principal); J44.1 Chronic obstructive pulmonary disease with (acute) exacerbation; J18.9 Pneumonia, unspecified organism; F41.9 Anxiety disorder, unspecified; F17.210 Nicotine dependence, cigarettes, uncomplicated; Z11.52 Encounter for screening for COVID-19
CPT/HCPCS: 0241U; 36415; 36600; 71045; 80048; 80053; 82805; 83605; 83735; 83880; 84484; 85025; 85610; 87040; 93005; 94640; 94660; 94760; 96365; 96375; 99285; G0378; J0696; J2060; J7613

== ENCOUNTER 2025-03-13 15:56 | Emergency (ER) | payer OTHER, SELFPAY ==
[2025-03-03 08:15] VITALS: PULSE 103; RESP 26; O2SAT 95
[2025-03-03 13:59] VITALS: BMI 36.3
[2025-03-13] VITALS (12 sets, daily range): BP systolic 105–163; BP diastolic 60–79; PULSE 74–90; RESP 18–36; TEMP 36.6; O2SAT 95–99; BMI 34.1
[2025-03-13 16:10] LABS: Add Manual Diff / Slide Review NO; Basophils Absolute Auto 200 /uL (0-100); Basophils Percent Auto 1.1 % (0-2); Eosinophils Absolute Auto 200 /uL (0-450); Eosinophils Percent Auto 1.7 % (2-4); Hematocrit 43.3 % (36-46); Hemoglobin 14.5 g/dL (12.0-16.0); Lymphocytes Absolute Auto 3800 /uL (1100-4500); Lymphocytes Percent Auto 25.3 % (25-40); Mean Corpuscular HGB Conc 33.6 % (30-36); Mean Corpuscular Hemoglobin 29.6 PG (26-34); Mean Corpuscular Volume 88.1 fL (80-100); Monocytes Absolute Auto 600 /uL (0-900); Monocytes Percent Auto 3.7 % (3-14); Neutrophils Absolute Auto 10300 /uL (1500-7000); Neutrophils Percent Auto 68.2 % (50-75); Platelet Count 310 X10^3/uL (150-400); Red Blood Cell Count 4.91 X10^6/uL (4.0-5.2); Red Cell Distribution Width 14.8 % (11.6-14.8)
--- NOTE | 2025-03-13 16:10 | EKG_ITS ---
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
--- NOTE | 2025-03-13 16:18 | PC.NURSE ---
1610 Patient declines 4 pack Covid/Flu/RSV testing and declines Chest Xray. Did allow vitals, bedside monitor/library monitor, Labs from PIV, and EKG.
[2025-03-13 16:19] LABS: INR 0.9 (0.9-1.3); Prothrombin Time 9.9 SECONDS (9.4-12.5)
[2025-03-13 16:22] LABS: Lactate (Lactic Acid) 2.7 mmol/L (0.7-2.1)
[2025-03-13 16:23] LABS: Alanine Aminotransferase 28 IU/L (<35); Albumin 4.6 g/dL (3.5-5.0); Albumin Globulin Ratio 1.5 (1.0-2.8); Alkaline Phosphatase 69 U/L (38-126); BUN Creatinine Ratio 23.5 (6-22); Bilirubin Total 1.1 mg/dL (0.2-1.3); Blood Urea Nitrogen 24 mg/dL (7-17); Calcium 9.7 mg/dL (8.4-10.2); Carbon Dioxide 21 mmol/L (22-32); Chloride 107 mmol/L (98-107); Estimated Glomerular Filt Rate > 60 mL/min (>60); Glucose 99 mg/dL (70-99); Sodium 138 mmol/L (137-145); Total Protein 7.6 g/dL (6.3-8.2)
[2025-03-13 16:25] LABS: HEMOLYSIS 193 (0-50)
[2025-03-13 16:26] LABS: Aspartate Aminotransferase 48 IU/L (14-36); Potassium 4.6 mmol/L (3.4-5.1)
[2025-03-13 16:36] LABS: NT-proBNP (BNP-Adult 18+) 128 pg/mL (<125); Troponin I 0.028 ng/mL (0.01-0.034)
--- NOTE | 2025-03-13 17:25 | ED.SOB ---
HPI - SOB/Dyspnea <Lashawn Soares, DO - Last Filed: 03/14/25 07:55> General Chief Complaint: Shortness of Breath/Dyspnea Stated Complaint: SOB Time Seen by Provider: 03/13/25 15:56 Source: patient Mode of arrival: Wheelchair Limitations: no limitations History of Present Illness HPI Narrative: Patient is a 54-year-old female who has been having COPD exacerbations chest pain back pain on going since August. She recently had an admission to the hospital March 03 through the for a COPD exacerbation. She reports having inhalers at home using them sometime but does not report any significant relief. She really reports pain in her back and then it causes increasing shortness of breath. She feels like the pain is subsiding now and she was breathing a lot. She was offered a nebulizer treatment which she declines now. It feels like she has heaviness in her lungs. She was not hypoxic she was speaking in full sentences. No significant abdominal pain nausea or vomiting. Related Data Previous Rx's Medication Instructions Recorded nicotine 7 mg/24 hr daily 1 patch transdermal Q24H #14 ea 12/11/24 transdermal patch varenicline tartrate 0.5 mg (11)-1 See Rx Instructions PO PER PKG DIR 12/11/24 mg (42) tablets in a dose pack #53 ea (Chantix Starting Month Box) nebulizer accessories #1 ea 01/28/25 nebulizer and compressor #1 ea 01/28/25 albuterol sulfate 2.5 mg/0.5 mL 2.5 mg (0.5 mL) inhalation Q6H PRN 03/04/25 solution for nebulization shortness of breath or wheezing 30 days #30 ea albuterol sulfate 90 mcg/actuation 2 puff inhalation Q6H PRN 03/04/25 aerosol inhaler shortness of breath or wheezing 30 days #8.5 grams budesonide-formoterol HFA 160 2 puff inhalation BID 30 days 03/04/25 mcg-4.5 mcg/actuation aerosol #10.2 grams inhaler (Symbicort) ipratropium 0.5 mg-albuterol 3 mg 3 ml inhalation QID PRN shortness 03/04/25 (2.5 mg base)/3 mL nebulization of breath or wheezing 30 days #180 soln mL mometasone-formoterol HFA 50 mcg-5 2 puff inhalation Q12H #13 grams 03/13/25 mcg/actuation aerosol inhaler (Dulera) prednisone 20 mg tablet 40 mg (2 x 20 mg) PO DAILY 5 days 03/13/25 #10 tabs Allergies Allergy/AdvReac Type Severity Reaction Status Date / Time codeine Allergy Intermediate Hives Verified 01/28/25 10:52 Patient History <Lashawn Soares DO - Last Filed: 03/14/25 07:55> Medical History (Updated 03/13/25 @ 20:51 by King Ernandez MD) COPD (chronic obstructive pulmonary disease) Tobacco abuse Social History household members: family and children alcohol intake: never tobacco type: cigarettes Exam <Lashawn Soares DO - Last Filed: 03/14/25 07:55> Initial Vital Signs Initial Vital Signs: Vital Signs Temperature 97.8 F 03/13/25 15:56 Pulse Rate 86 03/13/25 15:56 Respiratory Rate 36 H 03/13/25 15:56 Blood Pressure 163/73 H 03/13/25 15:56 Pulse Oximetry 98 03/13/25 15:56 Oxygen Delivery Method Room Air 03/13/25 15:56 GENERAL: \alert 54-year-old female and in no acute distress. HEENT: Head atraumatic,EOMI, pupils reactive, face symmetric, moist mucous membranes CARDIOVASCULAR: Regular rate and rhythm without murmurs, rubs or gallops. RESPIRATORY: Breath sounds equal bilaterally, no wheezes rales or rhonchi. ABDOMEN: Soft, nontender. Normoactive bowel sounds all 4 quadrants. No guarding or rebound. Minimal epigastric pain no right upper quadrant EXTREMITIES: Normal range of motion, no clubbing or edema. Neurovascularly intact NEUROLOGICAL: Alert and oriented x4.Normal gait and speech. Cranial nerves II through XII grossly intact. SKIN: Warm, dry, no laceration, no petechiae, no rashes or lesions. <King Ernandez MD - Last Filed: 03/14/25 05:41> Initial Vital Signs Initial Vital Signs: Vital Signs Temperature 97.8 F 03/13/25 15:56 Pulse Rate 86 03/13/25 15:56 Respiratory Rate 36 H 03/13/25 15:56 Blood Pressure 163/73 H 03/13/25 15:56 Pulse Oximetry 98 03/13/25 15:56 Oxygen Delivery Method Room Air 03/13/25 15:56 Course <Lashawn Soares DO - Last Filed: 03/14/25 07:55> Orders Ordered: Discontinued Medications Ketorolac Tromethamine (Ketorolac 30 Mg/Ml Vial) 15 mg IV NOW ONE Stop: 03/13/25 17:26 Last Admin: 03/13/25 17:35 Dose: 15 mg Documented By: NEO Prednisone (Prednisone 20 Mg Tablet) 60 mg PO NOW ONE Stop: 03/13/25 20:52 Last Admin: 03/13/25 20:57 Dose: 60 mg Documented By: NEO Vital Signs Vital signs: Vital Signs - 8 hr 03/13/25 15:56 03/13/25 15:59 03/13/25 16:00 Temperature 97.8 F Pulse Rate 86 90 87 Respiratory Rate 36 H 34 H Blood Pressure 163/73 H Pulse Oximetry 98 98 99 Oxygen Delivery Method Room Air Room Air 03/13/25 16:00 03/13/25 16:30 03/13/25 16:31 Temperature Pulse Rate 84 84 Respiratory Rate 31 H 31 H Blood Pressure 163/73 H Pulse Oximetry 98 98 Oxygen Delivery Method Room Air 03/13/25 16:31 03/13/25 17:00 03/13/25 17:30 Temperature Pulse Rate 84 81 Respiratory Rate 25 H 20 Blood Pressure 137/79 Pulse Oximetry 97 95 Oxygen Delivery Method Room Air 03/13/25 17:55 03/13/25 17:55 03/13/25 18:00 Temperature Pulse Rate 75 Respiratory Rate 22 Blood Pressure 135/65 129/63 Pulse Oximetry 96 Oxygen Delivery Method 03/13/25 18:00 03/13/25 18:30 03/13/25 18:30 Temperature Pulse Rate 77 74 Respiratory Rate 20 18 Blood Pressure 139/78 Pulse Oximetry 98 96 Oxygen Delivery Method 03/13/25 19:00 03/13/25 19:00 03/13/25 19:30 Temperature Pulse Rate 78 75 Respiratory Rate 18 21 Blood Pressure 142/76 H 105/60 Pulse Oximetry 97 96 Oxygen Delivery Method Room Air <King Ernandez MD - Last Filed: 03/14/25 05:41> Orders Ordered: Discontinued Medications Ketorolac Tromethamine (Ketorolac 30 Mg/Ml Vial) 15 mg IV NOW ONE Stop: 03/13/25 17:26 Last Admin: 03/13/25 17:35 Dose: 15 mg Documented By: NEO Prednisone (Prednisone 20 Mg Tablet) 60 mg PO NOW ONE Stop: 03/13/25 20:52 Last Admin: 03/13/25 20:57 Dose: 60 mg Documented By: NEO Vital Signs Vital signs: Vital Signs - 8 hr 03/13/25 15:56 03/13/25 15:59 03/13/25 16:00 Temperature 97.8 F Pulse Rate 86 90 87 Respiratory Rate 36 H 34 H Blood Pressure 163/73 H Pulse Oximetry 98 98 99 Oxygen Delivery Method Room Air Room Air 03/13/25 16:00 03/13/25 16:30 03/13/25 16:31 Temperature Pulse Rate 84 84 Respiratory Rate 31 H 31 H Blood Pressure 163/73 H Pulse Oximetry 98 98 Oxygen Delivery Method Room Air 03/13/25 16:31 03/13/25 17:00 03/13/25 17:30 Temperature Pulse Rate 84 81 Respiratory Rate 25 H 20 Blood Pressure 137/79 Pulse Oximetry 97 95 Oxygen Delivery Method Room Air 03/13/25 17:55 03/13/25 17:55 03/13/25 18:00 Temperature Pulse Rate 75 Respiratory Rate 22 Blood Pressure 135/65 129/63 Pulse Oximetry 96 Oxygen Delivery Method 03/13/25 18:00 03/13/25 18:30 03/13/25 18:30 Temperature Pulse Rate 77 74 Respiratory Rate 20 18 Blood Pressure 139/78 Pulse Oximetry 98 96 Oxygen Delivery Method 03/13/25 19:00 03/13/25 19:00 03/13/25 19:30 Temperature Pulse Rate 78 75 Respiratory Rate 18 21 Blood Pressure 142/76 H 105/60 Pulse Oximetry 97 96 Oxygen Delivery Method Room Air MDM - SOB/Dyspnea <Lashawn Soares DO - Last Filed: 03/14/25 07:55> Lab Data 03/13/25 16:00 03/13/25 16:00 Labs: Lab Results 03/13/25 03/13/25 03/13/25 Range/Units 16:00 18:10 19:07 WBC 15.0 H (4.5-11.0) X10^3/uL RBC 4.91 (4.0-5.2) X10^6/uL Hgb 14.5 (12.0-16.0) g/dL Hct 43.3 (36-46) % MCV 88.1 (80-100) fL MCH 29.6 (26-34) PG MCHC 33.6 (30-36) % RDW 14.8 (11.6-14.8) % Plt Count 310 (150-400) X10^3/uL Neut % (Auto) 68.2 (50-75) % Lymph % (Auto) 25.3 (25-40) % [place] % (Auto) 3.7 (3-14) % Eos % (Auto) 1.7 L (2-4) % Baso % (Auto) 1.1 (0-2) % Neut # (Auto) 90490 H (4208-1777) /uL Lymph # (Auto) 3800 (9288-0506) /uL [place] # (Auto) 600 (0-900) /uL Eos # (Auto) 200 (0-450) /uL Baso # (Auto) 200 H (0-100) /uL PT 9.9 (9.4-12.5) SECONDS INR 0.9 (0.9-1.3) Sodium 138 (137-145) mmol/L Potassium 4.6 (3.4-5.1) mmol/L Chloride 107 (98-107) mmol/L Carbon Dioxide 21 L (22-32) mmol/L BUN 24 H (7-17) mg/dL Creatinine 1.02 (0.52-1.04) mg/dL Estimated GFR > 60 (>60) mL/min BUN/Creatinine Ratio 23.5 H (6-22) Glucose 99 (70-99) mg/dL Lactate 2.7 H 1.4 (0.7-2.1) mmol/L Calcium 9.7 (8.4-10.2) mg/dL Total Bilirubin 1.1 (0.2-1.3) mg/dL AST 48 H (14-36) IU/L ALT 28 (<35) IU/L Alkaline Phosphatase 69 (38-126) U/L Troponin I 0.028 < 0.012 (0.01-0.034) ng/mL NT-Pro-B Natriuret Pep 128 H (<125) pg/mL Total Protein 7.6 (6.3-8.2) g/dL Albumin 4.6 (3.5-5.0) g/dL Globulin 3.0 (1.7-4.1) g/dL Albumin/Globulin Ratio 1.5 (1.0-2.8) Imaging Data Chest x-ray: Radiologist's Impression: PROCEDURE: XR CHEST 1V INDICATIONS: Shortness of breath TECHNIQUE: One view of the chest was acquired. COMPARISON: [facility], CR, XR CHEST 1V, 01/28/2025, 10:54. [facility], CR, XR CHEST 1V, 12/13/2024, 16:56. FINDINGS: Surgical changes and devices: EKG leads overlie the chest. Lungs and pleura: Lungs are clear. No pleural effusions or pneumothorax. Mediastinum: Mediastinal contours appear normal. Heart size is normal. Bones and chest wall: No suspicious bony lesions. Overlying soft tissues appear unremarkable. IMPRESSION: No acute cardiopulmonary abnormality is seen. Dictated by: Esdras Rocah M.D. on 03/03/2025 at 11:30 ECG Data Attestation: I personally reviewed and interpreted this ECG as follows: Prior ECG tracings: available for review Interpretation: Sinus rhythm rate 80 TX and a long 114 QRS [address] changes MDM Narrative Medical decision making narrative: Patient is a 54-year-old female who has COPD recently admitted at end of February for a COPD exacerbation. Presenting today with back pain and shortness of breath. She did receive DuoNeb treatment with EMS which he reports no improvement. She was speaking in full sentences without significant respiratory distress. She was complaining of back pain which has now resolved. Records have been reviewed she had a CT angio back in December which did show a large hiatal hernia no pulmonary embolism. Blood work has been reviewed WBC is 15 Electrolytes within normal limits lactate elevated 2.7 with repeat 1.4 Troponin 0.028 Patient not having any significant respiratory distress. Speaking in full sentences no tachypnea no wheezing. Given Toradol here in the ED Patient signed out to Dr. Ernandez for further evaluation and disposition 03/13/25, Awais Billingsley. Sign-out from Dr. Soares. 54-year-old female with history of COPD feels like she has worsening lung symptoms, more shortness of breath, arrived by EMS, DuoNeb nebulized treatment during transport, little improvement. Seemed to be moving air quite well. Chest x-ray unremarkable. CT angiogram done December 2024 showed a hiatal hernia but no pulmonary embolism. Elevated white blood cell count [id number] noted. Troponin measurable but low. Toradol given. Initial lactate mildly elevated 2.7 was normalized on repeat 1.4 noted. Interval repeat troponin pending. Assumed care. Repeat EKG 7:09 p.m. normal sinus rhythm with rate of 73. No obvious ST segment elevation changes. T-wave inversion changes lead 3, upright in lead 2. TX 134, QRS 92, QTC 442. No change from 1610 study. Patient feels better, would like to go home. She requests prednisone, oral dose given, prescription sent for 5 day pulse to her pharmacy. She also requests switch from Symbicort to Dulera inhaler, new prescription for Dulera inhaler also sent to her pharmacy. Discharged home per patient request. <King Ernandez MD - Last Filed: 03/14/25 05:41> Lab Data Labs: Lab Results 03/13/25 03/13/25 03/13/25 Range/Units 16:00 18:10 19:07 WBC 15.0 H (4.5-11.0) X10^3/uL RBC 4.91 (4.0-5.2) X10^6/uL Hgb 14.5 (12.0-16.0) g/dL Hct 43.3 (36-46) % MCV 88.1 (80-100) fL MCH 29.6 (26-34) PG MCHC 33.6 (30-36) % RDW 14.8 (11.6-14.8) % Plt Count 310 (150-400) X10^3/uL Neut % (Auto) 68.2 (50-75) % Lymph % (Auto) 25.3 (25-40) % [place] % (Auto) 3.7 (3-14) % Eos % (Auto) 1.7 L (2-4) % Baso % (Auto) 1.1 (0-2) % Neut # (Auto) 21407 H (0190-8591) /uL Lymph # (Auto) 3800 (7081-5672) /uL [place] # (Auto) 600 (0-900) /uL Eos # (Auto) 200 (0-450) /uL Baso # (Auto) 200 H (0-100) /uL PT 9.9 (9.4-12.5) SECONDS INR 0.9 (0.9-1.3) Sodium 138 (137-145) mmol/L Potassium 4.6 (3.4-5.1) mmol/L Chloride 107 (98-107) mmol/L Carbon Dioxide 21 L (22-32) mmol/L BUN 24 H (7-17) mg/dL Creatinine 1.02 (0.52-1.04) mg/dL Estimated GFR > 60 (>60) mL/min BUN/Creatinine Ratio 23.5 H (6-22) Glucose 99 (70-99) mg/dL Lactate 2.7 H 1.4 (0.7-2.1) mmol/L Calcium 9.7 (8.4-10.2) mg/dL Total Bilirubin 1.1 (0.2-1.3) mg/dL AST 48 H (14-36) IU/L ALT 28 (<35) IU/L Alkaline Phosphatase 69 (38-126) U/L Troponin I 0.028 < 0.012 (0.01-0.034) ng/mL NT-Pro-B Natriuret Pep 128 H (<125) pg/mL Total Protein 7.6 (6.3-8.2) g/dL Albumin 4.6 (3.5-5.0) g/dL Globulin 3.0 (1.7-4.1) g/dL Albumin/Globulin Ratio 1.5 (1.0-2.8) MDM Narrative Medical decision making narrative: Patient is a 54-year-old female who has COPD recently admitted at end of February for a COPD exacerbation. Presenting today with back pain and shortness of breath. She did receive DuoNeb treatment with EMS which he reports no improvement. She was speaking in full sentences without significant respiratory distress. She was complaining of back pain which has now resolved. Records have been reviewed she had a CT angio back in December which did show a large hiatal hernia no pulmonary embolism. Blood work has been reviewed WBC is 15 Electrolytes within normal limits lactate elevated 2.7 with repeat 1.4 Troponin 0.028 Patient not having any significant respiratory a short time. Given Toradol here in the ED Patient signed out to Dr. Ernandez for further evaluation and disposition 03/13/25, Awais Billingsley. Sign-out from Dr. Soares. 54-year-old female with history of COPD feels like she has worsening lung symptoms, more shortness of breath, arrived by EMS, DuoNeb nebulized treatment during transport, little improvement. Seemed to be moving air quite well. Chest x-ray unremarkable. CT angiogram done December 2024 showed a hiatal hernia but no pulmonary embolism. Elevated white blood cell count 48930 noted. Troponin measurable but low. Toradol given. Initial lactate mildly elevated 2.7 was normalized on repeat 1.4 noted. Interval repeat troponin pending. Assumed care. Repeat EKG 7:09 p.m. normal sinus rhythm with rate of 73. No obvious ST segment elevation changes. T-wave inversion changes lead 3, upright in lead 2. TX 134, QRS 92, QTC 442. No change from 1610 study. Patient feels better, would like to go home. She requests prednisone, oral dose given, prescription sent for 5 day pulse to her pharmacy. She also requests switch from Symbicort to Dulera inhaler, new prescription for Dulera inhaler also sent to her pharmacy. Discharged home per patient request. Discharge Plan Departure Patient Disposition: Home Clinical Impression: Shortness of breath, History of COPD Activity Restrictions/Additional Instructions: History of COPD, shortness of breath, given breathing treatments. Studies today reassuring, no evidence for heart attack. No obvious pneumonia identified. Request for prednisone, oral dose given, pulse sent to your pharmacy per request. Also requested change of inhaler from Symbicort that causes burning, to Dulera inhaler. Recheck symptoms with your regular doctor advised. Return earlier to this/nearest emergency department for any change worsening symptoms or any concerns prior. Prescriptions: New prednisone 20 mg tablet 40 mg PO DAILY 5 Days Qty: 10 0RF Dulera 50-5 mcg/actuation HFA aerosol inhaler 2 puff inhalation Q12H Qty: 13 1RF No Action (DME) nebulizer and compressor Device See Rx Instructions .Route Qty: 1 0RF Rx Instructions: As directed (DME) nebulizer accessories Kit See Rx Instructions .Route Qty: 1 0RF Rx Instructions: As directed budesonide-formoterol [Symbicort] 160-4.5 mcg/actuation HFA aerosol inhaler 2 puff inhalation BID 30 Days Qty: 10.2 2RF albuterol sulfate 2.5 mg/0.5 mL solution for nebulization 2.5 mg inhalation Q6H PRN (Reason: shortness of breath or wheezing) 30 Days Qty: 30 0RF Rx Instructions: for up to 3 doses ipratropium-albuterol 0.5 mg-3 mg(2.5 mg base)/3 mL solution for nebulization 3 ml inhalation QID PRN (Reason: shortness of breath or wheezing) 30 Days Qty: 180 0RF albuterol sulfate 90 mcg/actuation HFA aerosol inhaler 2 puff inhalation Q6H PRN (Reason: shortness of breath or wheezing) 30 Days Qty: 8.5 2RF nicotine 7 mg/24 hr patch 24 hour 1 patch transdermal Q24H Qty: 14 3RF varenicline tartrate [Chantix Starting Month Box] 0.5 mg (11)- 1 mg (42) tablets,dose pack See Rx Instructions PO PER PKG DIR Qty: 53 0RF Rx Instructions: PO PER PKG DIR Referrals: Raul Rico MD [Primary Care Provider] - Stand Alone Forms: Patient Portal/API/Survey
[2025-03-13] MEDS: KETOROLAC 30 MG/ML VIAL 15 MG IV (17:35)
[2025-03-13 17:42] LABS: Reflexed Lactate in 2 Hours Y
[2025-03-13 18:28] LABS: Lactate 2HR (Lactic Acid Rflx) 1.4 mmol/L (0.7-2.1)
--- NOTE | 2025-03-13 19:04 | EKG_ITS ---
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
[2025-03-13 19:46] LABS: Troponin I < 0.012 ng/mL (0.01-0.034)
[2025-03-13] MEDS: predniSONE 20 MG TABLET 60 MG PO (20:57)
== END 2025-03-13 20:57 | disposition home or self-care (01) ==
PROVIDERS: Emergency Medicine; Emergency Provider Emergency Medicine; PCP Internal Medicine
DX: R06.02 Shortness of breath (principal); J44.9 Chronic obstructive pulmonary disease, unspecified; M54.9 Dorsalgia, unspecified; R07.9 Chest pain, unspecified; F17.210 Nicotine dependence, cigarettes, uncomplicated
CPT/HCPCS: 36415; 80053; 83605; 83880; 84484; 85025; 85610; 93005; 93010; 96374; 99284; J1885

== ENCOUNTER 2025-03-18 06:59 | Emergency (ER) | payer OTHER, SELFPAY ==
[2025-03-03 08:15] VITALS: PULSE 103; RESP 26; O2SAT 95
[2025-03-03 13:59] VITALS: BMI 36.3
[2025-03-18] VITALS (9 sets, daily range): BP systolic 142–186; BP diastolic 78–86; PULSE 81–105; RESP 20–25; TEMP 36; O2SAT 96–99; BMI 32.5
--- NOTE | 2025-03-18 07:12 | ED.SOB ---
HPI - SOB/Dyspnea General Chief Complaint: Shortness of Breath/Dyspnea Stated Complaint: Can't breathe Time Seen by Provider: 03/18/25 07:12 Source: patient, RN notes reviewed and old records reviewed Mode of arrival: Ambulatory Limitations: no limitations History of Present Illness HPI Narrative: 54-year-old female with a reported history of COPD who presents with complaint of shortness of breath no ongoing chest and back discomfort since August. Patient was admitted on March 03 for COPD exacerbation/bacterial pneumonia. She has had a visit since here on 03/13 and a visit at [facility] as well. she states that she was never really gotten better. She does state her symptoms seemed to be worse in the morning and improves throughout the day they do seem to be worse with exertion. She describes some orthopnea. She notes she was had some chronic back pain but states that does not seem to be the source of her symptoms. She notes she has a large hiatal hernia does feel a sense of a fullness in her chest. She denies fevers or chills no cold cough or congestion symptoms. she was sometimes have nausea but no vomiting. She denies any other GI or urinary symptoms. She notes some numbness in her heel but no new swelling or other changes to her extremities. She states this morning she took her last dose of prednisone, use her inhaler 3 or 4 times with a spacer using 2 puffs tried nebulizer without any improvement. Patient states that she did receive hydroxyzine from [facility] which did seem to be a little helpful. she was not currently on any other daily medications. Reports an allergy to codeine. Denies major surgeries. Uses tobacco, no regular alcohol or recreational drugs. She was attempting to find primary care currently. She was initially politely refusing all workup but it was requesting a nebulizer treatment. Patient after discussion still refuses chest x-ray she states she was had multiple in the past several months and 1 in the past week. Related Data Previous Rx's Medication Instructions Recorded nicotine 7 mg/24 hr daily 1 patch transdermal Q24H #14 ea 12/11/24 transdermal patch varenicline tartrate 0.5 mg (11)-1 See Rx Instructions PO PER PKG DIR 12/11/24 mg (42) tablets in a dose pack #53 ea (Chantix Starting Month Box) nebulizer accessories #1 ea 01/28/25 nebulizer and compressor #1 ea 01/28/25 albuterol sulfate 2.5 mg/0.5 mL 2.5 mg (0.5 mL) inhalation Q6H PRN 03/04/25 solution for nebulization shortness of breath or wheezing 30 days #30 ea albuterol sulfate 90 mcg/actuation 2 puff inhalation Q6H PRN 03/04/25 aerosol inhaler shortness of breath or wheezing 30 days #8.5 grams budesonide-formoterol HFA 160 2 puff inhalation BID 30 days 03/04/25 mcg-4.5 mcg/actuation aerosol #10.2 grams inhaler (Symbicort) ipratropium 0.5 mg-albuterol 3 mg 3 ml inhalation QID PRN shortness 03/04/25 (2.5 mg base)/3 mL nebulization of breath or wheezing 30 days #180 soln mL mometasone-formoterol HFA 50 mcg-5 2 puff inhalation Q12H #13 grams 03/13/25 mcg/actuation aerosol inhaler (Dulera) albuterol sulfate 2.5 mg/3 mL 2.5 mg (3 mL) inhalation Q4-6H PRN 03/18/25 (0.083 %) solution for nebulization shortness of breath or wheezing #90 mL prednisone 10 mg tablets in a dose See Rx Instructions PO .COMPLEX 03/18/25 pack #21 ea Allergies Allergy/AdvReac Type Severity Reaction Status Date / Time codeine Allergy Intermediate Hives Verified 01/28/25 10:52 Review of Systems Review of Systems ROS Unobtainable: All systems reviewed & are unremarkable except as noted in HPI and below Patient History Medical History COPD (chronic obstructive pulmonary disease) Tobacco abuse Social History household members: family and children Smoking Status: Current every day smoker alcohol intake: never Smoking Status: Current every day smoker tobacco type: cigarettes Exam Narrative Exam Narrative: GEN: well nourished, well appearing Female, alert and oriented x 3, patient appears to be in moderate distress. No diaphoresis. HEENT: Atraumatic, pupils are equal round reactive to light, extraocular movements are intact, nares are clear, TMs are clear with no fluid, there is no conjunctival pallor. Throat is clear without any exudates, erythema, tonsillar enlargement or uvular deviation HEART: Regular rate and rhythm without murmur, clicks, rubs. LUNGS:Lungs clear to auscultation, no wheezes, rales, crackles, chest moves symmetrically, patient appears to be mildly tachypneic, she was leaning forward but does not have any accessory muscle use. She was able to speak in full sentences. ABD:bowel sounds normal, soft, non-tender, no guarding, rebound, rigidity, no masses noted, no hepatosplenomegaly MSCL: Non-tender, no muscle atrophy, muscles strength 5/5 upper and lower extremities, full range of motion, normal gait NEURO:CN 2-12 intact, sensation normal Initial Vital Signs Initial Vital Signs: Vital Signs Temperature 96.8 F L 03/18/25 07:06 Pulse Rate 105 H 03/18/25 07:06 Respiratory Rate 25 H 03/18/25 07:06 Blood Pressure 186/86 H 03/18/25 07:06 Pulse Oximetry 98 03/18/25 07:06 Oxygen Delivery Method Room Air 03/18/25 07:06 Course Orders Ordered: ED Orders 03/18/25 07:21 EKG-12 Lead Stat 03/18/25 07:41 CBC Auto Diff [Complete Blood Count AUTO DIFF] Stat CMP [Comprehensive Metabolic Panel] Stat Lactate (Lactic Acid) Stat Lipase Stat Procalcitonin Stat Troponin & CK Cardiac Panel Stat 03/18/25 08:26 Consult to [employer]ES SAMPLE [employer]KER - Lamps Tester And Inspector Stat 03/18/25 08:49 CT angio chest PE protocol Stat Discontinued Medications Albuterol (Albuterol 2.5 Mg/3 Ml Neb (Adult)) 2.5 mg INH [id number] PRN PRN Reason: Shortness Of Breath Albuterol/Ipratropium (Albuterol/Ipratropium 3 Ml Ampul) 3 ml INH NOW ONE Stop: 03/18/25 07:21 Last Admin: 03/18/25 07:24 Dose: 3 ml Documented By: IBETH Hydroxyzine HCl (Hydroxyzine Hcl 25 Mg Tablet) 50 mg PO NOW ONE Stop: 03/18/25 07:22 Last Admin: 03/18/25 07:45 Dose: 50 mg Documented By: MALA Ketorolac Tromethamine (Ketorolac 30 Mg/Ml Vial) 15 mg IV NOW ONE Stop: 03/18/25 08:02 Last Admin: 03/18/25 08:06 Dose: 15 mg Documented By: MALA Methylprednisolone (Methylprednisolone 125 Mg/2 Ml Vial) 125 mg IV NOW ONE Stop: 03/18/25 07:22 Last Admin: 03/18/25 07:45 Dose: 125 mg Documented By: MALA Potassium Chloride (Potassium Chloride 20 Meq Tab) 40 meq PO NOW ONE Stop: 03/18/25 08:24 Last Admin: 03/18/25 08:37 Dose: 40 meq Documented By: MALA Vital Signs Vital signs: Vital Signs - 8 hr 03/18/25 08:00 03/18/25 08:01 03/18/25 08:01 Pulse Rate 91 H 89 Blood Pressure 158/81 H Pulse Oximetry 98 98 Oxygen Delivery Method 03/18/25 08:30 03/18/25 08:30 03/18/25 09:07 Pulse Rate 81 Blood Pressure 142/78 H Pulse Oximetry 98 96 Oxygen Delivery Method Room Air Room Air 03/18/25 09:33 Pulse Rate 90 Blood Pressure 147/86 H Pulse Oximetry Oxygen Delivery Method MDM - SOB/Dyspnea Lab Data 03/18/25 07:41 03/18/25 07:41 Labs: Lab Results 03/18/25 03/18/25 Range/Units 07:41 09:30 WBC 13.3 H (4.5-11.0) X10^3/uL RBC 4.68 (4.0-5.2) X10^6/uL Hgb 13.9 (12.0-16.0) g/dL Hct 41.3 (36-46) % MCV 88.4 (80-100) fL MCH 29.7 (26-34) PG MCHC 33.6 (30-36) % RDW 14.7 (11.6-14.8) % Plt Count 263 (150-400) X10^3/uL Neut % (Auto) 90.3 H (50-75) % Lymph % (Auto) 6.7 L (25-40) % [place] % (Auto) 2.8 L (3-14) % Eos % (Auto) 0.1 L (2-4) % Baso % (Auto) 0.1 (0-2) % Neut # (Auto) 91902 H (5798-6565) /uL Lymph # (Auto) 900 L (2992-4104) /uL [place] # (Auto) 400 (0-900) /uL Eos # (Auto) 0 (0-450) /uL Baso # (Auto) 0 (0-100) /uL Sodium 140 (137-145) mmol/L Potassium 3.3 L D (3.4-5.1) mmol/L Chloride 108 H (98-107) mmol/L Carbon Dioxide 21 L (22-32) mmol/L BUN 16 (7-17) mg/dL Creatinine 1.04 (0.52-1.04) mg/dL Estimated GFR > 60 (>60) mL/min BUN/Creatinine Ratio 15.4 (6-22) Glucose 121 H (70-99) mg/dL Lactate 2.6 H 2.3 H (0.7-2.1) mmol/L Calcium 9.8 (8.4-10.2) mg/dL Total Bilirubin 0.7 (0.2-1.3) mg/dL AST 28 (14-36) IU/L ALT 27 (<35) IU/L Alkaline Phosphatase 85 (38-126) U/L Total Creatine Kinase 80 (30-135) U/L Troponin I < 0.012 (0.01-0.034) ng/mL Total Protein 6.7 (6.3-8.2) g/dL Albumin 4.2 (3.5-5.0) g/dL Globulin 2.5 (1.7-4.1) g/dL Albumin/Globulin Ratio 1.7 (1.0-2.8) Lipase 81 (23-300) U/L Procalcitonin 0.043 (<0.5) ng/mL ECG Data Attestation: I personally reviewed and interpreted this ECG as follows: Prior ECG tracings: available for review Interpretation: sinus rhythm rate of 92 AR 112 QRS 88 QTC 464, no acute ST elevation depression noted. EKG appears similar to 03/13/2025. MDM Narrative Medical decision making narrative: 54-year-old female presents with complaint of increasing shortness of breath patient states she was never really improved had prior hospitalization on 03/04/2025 was hypoxic treated with BiPAP had series, antibiotics for suspected bacterial pneumonia and inhaler. He was also referred to pulmonology at that time, she had 1 appointment but ran into barriers with follow up secondary to insurance. She was called multiple other pulmonology offices to try and set up follow up. Patient presents was very initially slightly tachycardic but not persistent after being seated, has had a chest CTA in December of 2024 which showed some tree-in-bud nodularity. patient has had multiple chest x-ray since including an other outside facilities most recently in the last week. She was politely declining any x-ray imaging at this time and initially declined any labs or EKG but after further discussion was amenable to these. EKG shows no acute change. Labs show fairly chronic leukocytosis trending down words neutrophils are 90% hemoglobin is appropriate as or platelets. Chemistries show potassium 3.3 chloride 108 CO2 is 21 BUN 16 with a creatinine 1.04 glucose is 121 lactate is 2.6- troponin and procalcitonin 0.043 CTA chest shows no PE or aortic dissection no lung consolidation or pleural effusions, apical predominant bilateral lung emphysematous disease. Multinodular thyroid goiter, recommend nonemergent thyroid ultrasound. No pericardial effusion. [id number] hiatal hernia noted again. Patient received nebulizer treatment, Solu-Medrol and hydroxyzine here. Patient did have a dose of oral potassium. Given a dose of Toradol. Rechecked after medications at 7:57 a.m. patient states her breathing has not improved. She describes some pressure and discomfort feeling the need to burp in her left upper abdominal region. We did have some additional discussion about further imaging we will await for labs before final decision. Discussed with patient we would like to obtain CT of her chest she would have tree-in-bud nodularity in December this was not seen on chest x-ray at that time she also notes a large hiatal hernia which has not appreciated on most recent chest x-rays what she notes it feels like something is pushing up from her abdomen. Does not appear to push up between of the heart in the aorta her CT imaging from prior. After discussion patient was agreeable to CT imaging she would like to obtain to rule out as patient had prior tree-in-bud in December. Patient continues to feel improved here. Discussed with the patient I would have her follow up regarding her hiatal hernia and thyroid ultrasound. Patient has prior hospitalization seemed to be clearly related to her COPD she does feel improved after nebulizer. Did discuss if she was back on her maintenance steroid inhaler, she had tiotropium but states she was stopped using that because she had an reaction, she has Symbicort but states it hernández. She was recently prescribed Dulera but has not started it. Discussed the importance of this. Discharge Plan Departure Patient Disposition: Home Clinical Impression: Acute exacerbation of chronic obstructive pulmonary disease Instructions: DI for Chronic Obstructive Pulmonary Disease Activity Restrictions/Additional Instructions: Follow up with your physician, you should follow up with ultrasound for your thyroid you do have several nodules present. Your hiatal hernia could possibly causing some of your discomfort with a sensation of pressure from your abdomen up anterior chest. I would follow up with surgery depending on the size of your hiatal hernia sometimes requires a specialized surgeon. You do have emphysematous changes or COPD changes in your lungs on your CT. Continue your home medications as prescribed. It is important that you do continue with a daily steroid inhaler, use your Dulera as prescribed. This is a maintenance medication that is not as helpful in the moment when your lungs are bothering you but works by taking it every day whether you feel good or bad to help prevent recurrence of symptoms. Continue to use your albuterol as needed. A prescription was sent to [facility] in [place]. Please return for new or worsening changes, fevers, increasing chest pain or shortness of breath, lightheadedness or passing out, vomiting, new swelling of your extremities or other new or concerning changes Prescriptions: New albuterol sulfate 2.5 mg /3 mL (0.083 %) solution for nebulization 2.5 mg inhalation Q4-6H PRN (Reason: shortness of breath or wheezing) Qty: 90 0RF prednisone 10 mg tablets,dose pack See Rx Instructions .ROUTE .COMPLEX Qty: 21 0RF Rx Instructions: 6 tabs p.o. x1 day, then 5 tabs p.o. x1 day, then 4 tablets p.o. x1 day, then 3 tabs p.o. x1 day, then 2 tabs p.o. x1 day, then 1 tab p.o. x1 day No Action (DME) nebulizer and compressor Device See Rx Instructions .Route Qty: 1 0RF Rx Instructions: As directed (DME) nebulizer accessories Kit See Rx Instructions .Route Qty: 1 0RF Rx Instructions: As directed Dulera 50-5 mcg/actuation HFA aerosol inhaler 2 puff inhalation Q12H Qty: 13 1RF budesonide-formoterol [Symbicort] 160-4.5 mcg/actuation HFA aerosol inhaler 2 puff inhalation BID 30 Days Qty: 10.2 2RF albuterol sulfate 2.5 mg/0.5 mL solution for nebulization 2.5 mg inhalation Q6H PRN (Reason: shortness of breath or wheezing) 30 Days Qty: 30 0RF Rx Instructions: for up to 3 doses ipratropium-albuterol 0.5 mg-3 mg(2.5 mg base)/3 mL solution for nebulization 3 ml inhalation QID PRN (Reason: shortness of breath or wheezing) 30 Days Qty: 180 0RF albuterol sulfate 90 mcg/actuation HFA aerosol inhaler 2 puff inhalation Q6H PRN (Reason: shortness of breath or wheezing) 30 Days Qty: 8.5 2RF nicotine 7 mg/24 hr patch 24 hour 1 patch transdermal Q24H Qty: 14 3RF varenicline tartrate [Chantix Starting Month Box] 0.5 mg (11)- 1 mg (42) tablets,dose pack See Rx Instructions PO PER PKG DIR Qty: 53 0RF Rx Instructions: PO PER PKG DIR Referrals: Raul Rico MD [Primary Care Provider] - Stand Alone Forms: Patient Portal/API/Survey
--- NOTE | 2025-03-18 07:21 | EKG_ITS ---
[facility] [address], [place] [address] Test Date: 2025-03-18 Pat Name: Indiana Howell Department: [facility] Room: Gender: Female Public Health Microbiologist: : 1970 Requested By: Order Number: [id number] Reading MD: Dawit An MD Measurements Intervals [place] Rate: 92 P: 70 [place]: 112 QRS: 37 QRSD: 88 T: 24 QT: 376 QTc: 464 Interpretive Statements Normal sinus rhythm Electronically Signed On 03-18-2025 8:37:54 PDT by Dawit An MD
[2025-03-18] MEDS: ALBUTEROL/IPRATROPIUM 3 ML AMPUL INH (07:24)
[2025-03-18] MEDS: hydrOXYzine HCL 25 MG TABLET 50 MG PO (07:45)
[2025-03-18] MEDS: methylPREDNISolone 125 MG/2 ML VIAL IV (07:45)
[2025-03-18 07:53] LABS: Add Manual Diff / Slide Review NO; Basophils Absolute Auto 0 /uL (0-100); Basophils Percent Auto 0.1 % (0-2); Eosinophils Absolute Auto 0 /uL (0-450); Eosinophils Percent Auto 0.1 % (2-4); Hematocrit 41.3 % (36-46); Hemoglobin 13.9 g/dL (12.0-16.0); Lymphocytes Absolute Auto 900 /uL (1100-4500); Lymphocytes Percent Auto 6.7 % (25-40); Mean Corpuscular HGB Conc 33.6 % (30-36); Mean Corpuscular Hemoglobin 29.7 PG (26-34); Mean Corpuscular Volume 88.4 fL (80-100); Monocytes Absolute Auto 400 /uL (0-900); Monocytes Percent Auto 2.8 % (3-14); Neutrophils Absolute Auto 12000 /uL (1500-7000); Neutrophils Percent Auto 90.3 % (50-75); Platelet Count 263 X10^3/uL (150-400); Red Blood Cell Count 4.68 X10^6/uL (4.0-5.2); Red Cell Distribution Width 14.7 % (11.6-14.8); White Blood Cell Count 13.3 X10^3/uL (4.5-11.0)
[2025-03-18] MEDS: KETOROLAC 30 MG/ML VIAL 15 MG IV (08:06)
[2025-03-18 08:09] LABS: Alanine Aminotransferase 27 IU/L (<35); Albumin 4.2 g/dL (3.5-5.0); Albumin Globulin Ratio 1.7 (1.0-2.8); Alkaline Phosphatase 85 U/L (38-126); Aspartate Aminotransferase 28 IU/L (14-36); BUN Creatinine Ratio 15.4 (6-22); Bilirubin Total 0.7 mg/dL (0.2-1.3); Blood Urea Nitrogen 16 mg/dL (7-17); Calcium 9.8 mg/dL (8.4-10.2); Carbon Dioxide 21 mmol/L (22-32); Chloride 108 mmol/L (98-107); Creatine Kinase 80 U/L (30-135); Estimated Glomerular Filt Rate > 60 mL/min (>60); Globulin 2.5 g/dL (1.7-4.1); Glucose 121 mg/dL (70-99); HEMOLYSIS < 15 (0-50); Lactate (Lactic Acid) 2.6 mmol/L (0.7-2.1); Lipase 81 U/L (23-300); Sodium 140 mmol/L (137-145); Total Protein 6.7 g/dL (6.3-8.2)
[2025-03-18 08:11] LABS: Potassium 3.3 mmol/L (3.4-5.1)
[2025-03-18 08:22] LABS: Troponin I < 0.012 ng/mL (0.01-0.034)
[2025-03-18 08:26] LABS: Procalcitonin 0.043 ng/mL (<0.5)
[2025-03-18] MEDS: POTASSIUM CHLORIDE 20 MEQ TAB 40 MEQ PO (08:37)
--- NOTE | 2025-03-18 08:49 | DI.CT.S_ITS ---
PROCEDURE: CT ANGIO CHEST PE PROTOCOL INDICATIONS: sob, feels pressure in upper abd, hiatal hernia/tree in bud TECHNIQUE: After the administration of intravenous contrast, 2 mm thick sections acquired from the pulmonary apices to the posterior costophrenic angles. 3-dimensional maximum intensity projection (MIP) coronal and sagittal reformats were then acquired through the thorax. For radiation dose reduction, the following was used: automated exposure control, adjustment of mA and/or kV according to patient size. COMPARISON: [facility], CR, XR CHEST 1V, 03/03/2025, 10:59. [facility], CT, CT ANGIO CHEST PE PROTOCOL, 12/13/2024, 17:43. FINDINGS: Image quality: Diagnostic. Pulmonary arteries: Pulmonary arteries are normal in size, and demonstrate no intraluminal filling defects to suggest central pulmonary embolism. Lower Neck: No enlarged lymph nodes. Thyroid: Thyroid gland is enlarged and contains multiple nodules. Axillae: No enlarged lymph nodes. Chest Wall: Unremarkable. Bones: Spine degenerative disc disease and facet arthropathy. Lungs and Pleura: No pneumothorax or pleural effusions. No consolidation or suspicious nodules. Bilateral lung apical predominant emphysematous disease. Heart: Heart size is normal. No pericardial effusion. Thoracic Vessels: No thoracic aortic aneurysm or dissection. Mediastinum and Belkis: No enlarged lymph nodes. Esophagus: No wall thickening. Moderate to large hiatal hernia. Upper Abdomen: No acute disease process in the visualized abdomen. Hepatic cysts. IMPRESSION: No pulmonary embolus or aortic dissection. No lung consolidation or pleural effusions. Apical predominant bilateral lung emphysematous disease. Multinodular thyroid goiter. Recommend nonemergent thyroid ultrasound. Dictated by: Nadia Scott MD, PhD on 03/18/2025 at 9:12 Approved by: Nadia Scott MD, PhD on 03/18/2025 at 9:17
[2025-03-18 09:26] LABS: Reflexed Lactate in 2 Hours Y
[2025-03-18 10:11] LABS: Lactate 2HR (Lactic Acid Rflx) 2.3 mmol/L (0.7-2.1)
--- NOTE | 2025-03-18 14:49 | CM.SWNOTE ---
Addendum entered by Julianna Nicolas 03/24/25 16:02: ED WORK FORCE ADVISOR follow up Note WORK FORCE ADVISOR receives new contact information after patient's recent ED presentation, patient is still in need of support setting up a PCP appt. (Ph. # [phone]) WORK FORCE ADVISOR leaves VM requesting return call. SUSIE Moses Addendum entered by Julianna Nicolas 03/19/25 11:26: This WORK FORCE ADVISOR attempts to call patient again today and patient's phone number continues to be unavailable. ED citrix administrator to attempt to assist patient further if patient presents to the ED. SUSIE Moses Original Note: ED WORK FORCE ADVISOR Follow up Note WORK FORCE ADVISOR receives follow up consult from ED provider to assist patient with setting up PCP follow up appt and Pulmonary follow up appt. WORK FORCE ADVISOR attempts to call patient and there is no answer and no VM greeting. WORK FORCE ADVISOR calls again a few hours later and it is reported that the phone number is not available. WORK FORCE ADVISOR to attempt to call again tomorrow. SUSIE Moses
== END 2025-03-18 10:05 | disposition home or self-care (01) ==
PROVIDERS: Emergency Provider Emergency Medicine; PCP Internal Medicine
DX: J44.1 Chronic obstructive pulmonary disease with (acute) exacerbation (principal)
CPT/HCPCS: 36415; 71275; 80053; 82550; 83605; 83690; 84145; 84484; 85025; 93005; 94640; 96374; 96375; 99285; A9270; J1885; J2919

== ENCOUNTER 2025-03-22 21:24 | Emergency (ER) | payer OTHER, SELFPAY ==
[2025-03-03 08:15] VITALS: PULSE 103; RESP 26; O2SAT 95
[2025-03-03 13:59] VITALS: BMI 36.3
[2025-03-22] VITALS (8 sets, daily range): BP systolic 139–173; BP diastolic 71–89; PULSE 78–96; RESP 16–24; TEMP 36.1; O2SAT 96–99; BMI 32.5
--- NOTE | 2025-03-22 22:08 | ED_ITS ---
HPI - SOB/Dyspnea General Chief Complaint: Shortness of Breath/Dyspnea Stated Complaint: sob Time Seen by Provider: 03/22/25 22:08 Source: patient Mode of arrival: Ambulatory History of Present Illness HPI Narrative: Patient is a 54-year-old female with history of COPD with the multiple ED visits multiple workups presenting today with ongoing shortness of breath. She reports that prednisone is the only thing that helps. She has been on a 6 day taper starting at 60 mg. She was prescribed 10 mg tablets on March 18. Today she reports that she took 20 mg this morning but then continued to have shortness of breath throughout the day took 10 mg 3:00 a.m. and then another 10 mg at 8:30 p.m.. She reports almost instantaneous relief with her shortness of breath when taking prednisone. She states that she starts not being able to breathe when she is under 60 mg of prednisone daily. She reports the bronchodilators such as Spiriva albuterol Dulera do not help her. She has been prescribed prednisone every single visit since October and sometimes twice a month. She has been diagnosed with a large hiatal hernia she has a thyroid goiter, she has a history of severe agoraphobia. She feels like she is shaking dizzy and lightheaded. She was not passed out. She was speaking in full sentences. She reports that she has been seen by a [place] marketing director who can not see your again because of insurance problems. She does not have a primary care provider she has an appointment with a new 1 in May. She can not get into another [place] marketing director they are all extremely far away and do not accept her insurance. She was overall extremely stressed and anxious and feels like she can not breathe. Related Data Previous Rx's Medication Instructions Recorded nicotine 7 mg/24 hr daily 1 patch transdermal Q24H #14 ea 12/11/24 transdermal patch varenicline tartrate 0.5 mg (11)-1 See Rx Instructions PO PER PKG DIR 12/11/24 mg (42) tablets in a dose pack #53 ea (Chantix Starting Month Box) nebulizer accessories #1 ea 01/28/25 nebulizer and compressor #1 ea 01/28/25 albuterol sulfate 2.5 mg/0.5 mL 2.5 mg (0.5 mL) inhalation Q6H PRN 03/04/25 solution for nebulization shortness of breath or wheezing 30 days #30 ea albuterol sulfate 90 mcg/actuation 2 puff inhalation Q6H PRN 03/04/25 aerosol inhaler shortness of breath or wheezing 30 days #8.5 grams budesonide-formoterol HFA 160 2 puff inhalation BID 30 days 03/04/25 mcg-4.5 mcg/actuation aerosol #10.2 grams inhaler (Symbicort) ipratropium 0.5 mg-albuterol 3 mg 3 ml inhalation QID PRN shortness 03/04/25 (2.5 mg base)/3 mL nebulization of breath or wheezing 30 days #180 soln mL mometasone-formoterol HFA 50 mcg-5 2 puff inhalation Q12H #13 grams 03/13/25 mcg/actuation aerosol inhaler (Dulera) albuterol sulfate 2.5 mg/3 mL 2.5 mg (3 mL) inhalation Q4-6H PRN 03/18/25 (0.083 %) solution for nebulization shortness of breath or wheezing #90 mL prednisone 10 mg tablets in a dose See Rx Instructions PO .COMPLEX 03/18/25 pack #21 ea hydroxyzine HCl 25 mg tablet 25 mg PO BID PRN anxiety #20 tabs 03/23/25 omeprazole 20 mg capsule,delayed 20 mg PO BID #30 caps 03/23/25 release prednisone 10 mg tablet 10 mg PO DAILY #151 tabs 03/23/25 prednisone 10 mg tablet 10 mg PO DAILY #30 tabs 03/23/25 Allergies Allergy/AdvReac Type Severity Reaction Status Date / Time codeine AdvReac Intermediate Hives Verified 03/22/25 21:33 Patient History Medical History COPD (chronic obstructive pulmonary disease) Tobacco abuse Social History household members: family and children alcohol intake: never tobacco type: cigarettes Exam Initial Vital Signs Initial Vital Signs: Vital Signs Temperature 97.0 F L 03/22/25 21:33 Pulse Rate 96 H 03/22/25 21:33 Respiratory Rate 24 03/22/25 21:33 Blood Pressure 170/82 H 03/22/25 21:33 Pulse Oximetry 98 03/22/25 21:33 Oxygen Delivery Method Room Air 03/22/25 21:33 GENERAL: Alert anxious 54-year-old female HEENT: Head atraumatic,EOMI, pupils reactive, face symmetric, moist mucous membranes No significant goiter appreciated CARDIOVASCULAR: Regular rate and rhythm without murmurs, rubs or gallops. RESPIRATORY: Breath sounds equal bilaterally, no wheezes rales or rhonchi. Speaks clearly full sentences no significant tachypnea ABDOMEN: Soft, nontender. Normoactive bowel sounds all 4 quadrants. No guarding or rebound. EXTREMITIES: Normal range of motion, no clubbing or edema. Neurovascularly intact NEUROLOGICAL: Alert and oriented x4.Normal gait and speech. Cranial nerves II through XII grossly intact. SKIN: Warm, dry, no laceration, no petechiae, no rashes or lesions. Course Orders Ordered: ED Orders 03/22/25 22:27 EKG-12 Lead Stat 03/22/25 23:00 Complete Blood Count AUTO DIFF Stat Comprehensive Metabolic Panel Stat Lipase Stat TSH [Thyroid Stimulating Hormone] Stat Troponin & CK Cardiac Panel Stat Discontinued Medications Albuterol (Albuterol Hfa Prepack) 1 box MISC DIRECTED ONE Stop: 03/23/25 00:41 Last Admin: 03/23/25 00:46 Dose: 1 box Documented By: RUDY Sodium Chloride (Normal Saline 0.9%) 1,000 mls @ 1,000 mls/hr IV BOLUS ONE Stop: 03/22/25 23:26 Last Infusion: 03/23/25 00:19 Dose: Infused Documented By: Admin: 03/22/25 22:35 Dose: 1,000 mls/hr Documented By: RUDY Pantoprazole Sodium (Pantoprazole 40 Mg Vial) 40 mg IV NOW ONE Stop: 03/22/25 22:30 Last Admin: 03/22/25 22:35 Dose: 40 mg Documented By: RUDY Potassium Chloride (Potassium Chloride 20 Meq Tab) 40 meq PO NOW ONE Stop: 03/23/25 00:41 Last Admin: 03/23/25 00:46 Dose: 40 meq Documented By: RUDY Vital Signs Vital signs: Vital Signs - 8 hr 03/22/25 21:33 03/22/25 21:45 03/22/25 22:00 Temperature 97.0 F L Pulse Rate 96 H 92 H Respiratory Rate 24 Blood Pressure 170/82 H 156/72 H Pulse Oximetry 98 98 Oxygen Delivery Method Room Air 03/22/25 22:00 03/22/25 22:29 03/22/25 22:30 Temperature Pulse Rate 85 86 Respiratory Rate 16 Blood Pressure 173/89 H Pulse Oximetry 99 97 Oxygen Delivery Method 03/22/25 22:31 03/22/25 23:00 03/22/25 23:00 Temperature Pulse Rate 84 85 Respiratory Rate 20 Blood Pressure 149/71 H Pulse Oximetry 97 97 Oxygen Delivery Method 03/22/25 23:30 03/22/25 23:30 03/23/25 00:00 Temperature Pulse Rate 78 77 Respiratory Rate Blood Pressure 139/79 Pulse Oximetry 96 95 Oxygen Delivery Method Room Air 03/23/25 00:00 03/23/25 00:30 Temperature Pulse Rate 82 Respiratory Rate 16 Blood Pressure 140/85 Pulse Oximetry 98 Oxygen Delivery Method MDM - SOB/Dyspnea Lab Data 03/22/25 23:00 03/22/25 23:00 Labs: Lab Results 03/22/25 Range/Units 23:00 WBC 11.1 H (4.5-11.0) X10^3/uL RBC 4.48 (4.0-5.2) X10^6/uL Hgb 13.3 (12.0-16.0) g/dL Hct 39.5 (36-46) % MCV 88.1 (80-100) fL MCH 29.8 (26-34) PG MCHC 33.8 (30-36) % RDW 14.8 (11.6-14.8) % Plt Count 229 (150-400) X10^3/uL Neut % (Auto) 77.4 H (50-75) % Lymph % (Auto) 16.3 L (25-40) % Callahan % (Auto) 5.6 (3-14) % Eos % (Auto) 0.5 L (2-4) % Baso % (Auto) 0.2 (0-2) % Neut # (Auto) 8600 H (1055-8819) /uL Lymph # (Auto) 1800 (1667-2648) /uL Callahan # (Auto) 600 (0-900) /uL Eos # (Auto) 100 (0-450) /uL Baso # (Auto) 0 (0-100) /uL Sodium 140 (137-145) mmol/L Potassium 3.2 L (3.4-5.1) mmol/L Chloride 108 H (98-107) mmol/L Carbon Dioxide 26 (22-32) mmol/L BUN 20 H (7-17) mg/dL Creatinine 1.29 H (0.52-1.04) mg/dL Estimated GFR 49 L (>60) mL/min BUN/Creatinine Ratio 15.5 (6-22) Glucose 123 H (70-99) mg/dL Calcium 9.4 (8.4-10.2) mg/dL Total Bilirubin 0.6 (0.2-1.3) mg/dL AST 34 (14-36) IU/L ALT 32 (<35) IU/L Alkaline Phosphatase 98 (38-126) U/L Total Creatine Kinase 174 H (30-135) U/L Troponin I < 0.012 (0.01-0.034) ng/mL Total Protein 6.9 (6.3-8.2) g/dL Albumin 4.1 (3.5-5.0) g/dL Globulin 2.8 (1.7-4.1) g/dL Albumin/Globulin Ratio 1.5 (1.0-2.8) Lipase 126 D (23-300) U/L TSH 0.724 (0.47-4.68) uIU/mL MDM Narrative Medical decision making narrative: [facility] CC: Shortness of breath Complicating co-morbidities: Active smoker 40 year history Data collected from: Medical records reviewed: Multiple previous ED visits including March 18 where she had a CT angio and full blood work Differential considered: COPD asthma ACS sarcoidosis cancer Exam documented above, pertinent findings include: Alert anxious 54-year-old female no wheezing no rales speaks in full sentences no respiratory distress no lower extremity edema significant tachycardic Lab Test results independently reviewed as above. Pertinent findings: WBC 11.1 previously 13.3 it has been down trending, hemoglobin stable at 13.3 hematocrit 39.5 platelets 229 Sodium is 140 mild hypokalemia potassium 3.2 chloride 108 carbon dioxide 26 BUN 20 creatinine 1.29 previously 1.0, glucose 123 Troponin negative TSH 0.7-4 Imaging studies independently reviewed:none has had many were passed fevers Treatments: Protonix albuterol prepack potassium normal saline Re-evaluations: Patient continues to have no significant respiratory distress Discussion: Patient 54-year-old female with 40 years of smoking is denying she has diagnosis of COPD. Reports that all her inhalers and bronchodilators do not help however taking prednisone instantaneously ups. Long discussion about how to appropriately take prednisone and how it works. She does have significant smoking history and CT from 4 days ago does show emphysematous changes. She is not having any wheezing rales or rhonchi she was speaking in full sentences. She does have a hiatal hernia in a thyroid goiter however I think this is unlikely causing her symptoms. She does have history of severe agoraphobia as well which maybe contributing to some of her shortness of breath. She is taking prednisone inappropriately we discussed how it works and how to appropriately take it. She was on Dulera she was tried on Spiriva and other maintenance inhalers which she claims does not work. It does sound like she was trying to get follow up but hitting row blocks with insurance and provider availability. human service worker is given her information to call her and help with navigating the system. At this time if her symptoms do sound like acid reflux she does have a hiatal hernia and has been taking prednisone ongoing for awhile. We will see if this helps. Also long discussion with her about how not to stop prednisone suddenly. She has been on it for some time if no evidence of adrenal crisis at this time. No need for any antibiotics does not meet admission criteria Discharge Plan Departure Patient Disposition: Home Clinical Impression: Acute exacerbation of chronic obstructive airways disease Instructions: How to Quit Tobacco Products Activity Restrictions/Additional Instructions: *You have been diagnosed with shortness of breath *What to do: Your thyroid numbers today are not significantly off. Your CT scan from this week does show ?emphysematous changes which are consistent with COPD Staying on prednisone long term care phlebotomist as significant consequences You do need an ultrasound and possible biopsy of your thyroid I will message the social media content specialist to have her call you tomorrow to help arrange for follow-up *Continue to take medications as directed Omeprazole 20 mg twice a day for 2 weeks, then at night Prednisone 60 mg for 3 days, 50 mg for 3 days, 40 mg for 3 days, 30 mg for 3 days, 20 mg for 3 days, 10 mg for 3 days *Follow up with your primary care provider in 2-3 days or call [phone] *Return to ER if you should have any new, worsening or concerning symptoms Prescriptions: New prednisone 10 mg tablet 10 mg PO DAILY Qty: 151 0RF Rx Instructions: day 1-3: 40 mg once a day day 4-6: 30 mg once a day day 7-9: 20 mg once a day day 10-12: 10 mg once a day prednisone 10 mg tablet 10 mg PO DAILY Qty: 30 0RF Rx Instructions: day 1-3: 40 mg once a day day 4-6: 30 mg once a day day 7-9: 20 mg once a day day 10-12: 10 mg once a day omeprazole 20 mg capsule,delayed release(DR/EC) 20 mg PO BID Qty: 30 0RF Rx Instructions: Twice a day for 2 weeks then at nighttime only hydroxyzine HCl 25 mg tablet 25 mg PO BID PRN (Reason: anxiety) Qty: 20 0RF No Action (DME) nebulizer and compressor Device See Rx Instructions .Route Qty: 1 0RF Rx Instructions: As directed (DME) nebulizer accessories Kit See Rx Instructions .Route Qty: 1 0RF Rx Instructions: As directed Dulera 50-5 mcg/actuation HFA aerosol inhaler 2 puff inhalation Q12H Qty: 13 1RF budesonide-formoterol [Symbicort] 160-4.5 mcg/actuation HFA aerosol inhaler 2 puff inhalation BID 30 Days Qty: 10.2 2RF albuterol sulfate 2.5 mg/0.5 mL solution for nebulization 2.5 mg inhalation Q6H PRN (Reason: shortness of breath or wheezing) 30 Days Qty: 30 0RF Rx Instructions: for up to 3 doses ipratropium-albuterol 0.5 mg-3 mg(2.5 mg base)/3 mL solution for nebulization 3 ml inhalation QID PRN (Reason: shortness of breath or wheezing) 30 Days Qty: 180 0RF albuterol sulfate 90 mcg/actuation HFA aerosol inhaler 2 puff inhalation Q6H PRN (Reason: shortness of breath or wheezing) 30 Days Qty: 8.5 2RF albuterol sulfate 2.5 mg /3 mL (0.083 %) solution for nebulization 2.5 mg inhalation Q4-6H PRN (Reason: shortness of breath or wheezing) Qty: 90 0RF prednisone 10 mg tablets,dose pack See Rx Instructions .ROUTE .COMPLEX Qty: 21 0RF Rx Instructions: 6 tabs p.o. x1 day, then 5 tabs p.o. x1 day, then 4 tablets p.o. x1 day, then 3 tabs p.o. x1 day, then 2 tabs p.o. x1 day, then 1 tab p.o. x1 day nicotine 7 mg/24 hr patch 24 hour 1 patch transdermal Q24H Qty: 14 3RF varenicline tartrate [Chantix Starting Month Box] 0.5 mg (11)- 1 mg (42) tablets,dose pack See Rx Instructions PO PER PKG DIR Qty: 53 0RF Rx Instructions: PO PER PKG DIR Referrals: Raul Rico MD [Primary Care Provider] - Stand Alone Forms: Patient Portal/API/Survey
[2025-03-22] MEDS: PANTOPRAZOLE 40 MG VIAL IV (22:35)
[2025-03-22] MEDS: SODIUM CHLORIDE 0.9% 1,000 ML 1000 ML IV (22:35)
[2025-03-22 23:16] LABS: Add Manual Diff / Slide Review NO; Basophils Absolute Auto 0 /uL (0-100); Basophils Percent Auto 0.2 % (0-2); Eosinophils Absolute Auto 100 /uL (0-450); Eosinophils Percent Auto 0.5 % (2-4); Hematocrit 39.5 % (36-46); Hemoglobin 13.3 g/dL (12.0-16.0); Lymphocytes Absolute Auto 1800 /uL (1100-4500); Lymphocytes Percent Auto 16.3 % (25-40); Mean Corpuscular HGB Conc 33.8 % (30-36); Mean Corpuscular Hemoglobin 29.8 PG (26-34); Mean Corpuscular Volume 88.1 fL (80-100); Monocytes Absolute Auto 600 /uL (0-900); Monocytes Percent Auto 5.6 % (3-14); Neutrophils Absolute Auto 8600 /uL (1500-7000); Neutrophils Percent Auto 77.4 % (50-75); Platelet Count 229 X10^3/uL (150-400); Red Blood Cell Count 4.48 X10^6/uL (4.0-5.2); Red Cell Distribution Width 14.8 % (11.6-14.8); White Blood Cell Count 11.1 X10^3/uL (4.5-11.0)
[2025-03-22 23:26] LABS: Alanine Aminotransferase 32 IU/L (<35); Albumin 4.1 g/dL (3.5-5.0); Albumin Globulin Ratio 1.5 (1.0-2.8); Alkaline Phosphatase 98 U/L (38-126); Aspartate Aminotransferase 34 IU/L (14-36); BUN Creatinine Ratio 15.5 (6-22); Bilirubin Total 0.6 mg/dL (0.2-1.3); Blood Urea Nitrogen 20 mg/dL (7-17); Calcium 9.4 mg/dL (8.4-10.2); Carbon Dioxide 26 mmol/L (22-32); Chloride 108 mmol/L (98-107); Creatine Kinase 174 U/L (30-135); Estimated Glomerular Filt Rate 49 mL/min (>60); Globulin 2.8 g/dL (1.7-4.1); Glucose 123 mg/dL (70-99); HEMOLYSIS < 15 (0-50); Lipase 126 U/L (23-300); Potassium 3.2 mmol/L (3.4-5.1); Sodium 140 mmol/L (137-145); Total Protein 6.9 g/dL (6.3-8.2)
[2025-03-22 23:38] LABS: Troponin I < 0.012 ng/mL (0.01-0.034)
[2025-03-23] VITALS: BP 140/85; PULSE 77; O2SAT 95
[2025-03-23 00:14] LABS: Thyroid Stimulating Hormone 0.724 uIU/mL (0.47-4.68)
[2025-03-23 00:30] VITALS: PULSE 82; RESP 16; O2SAT 98
[2025-03-23] MEDS: ALBUTEROL HFA PREPACK 1 BOX MISC (00:46)
[2025-03-23] MEDS: POTASSIUM CHLORIDE 20 MEQ TAB 40 MEQ PO (00:46)
== END 2025-03-23 00:58 | disposition home or self-care (01) ==
PROVIDERS: Emergency Provider Emergency Medicine; PCP Internal Medicine
DX: J44.1 Chronic obstructive pulmonary disease with (acute) exacerbation (principal)
CPT/HCPCS: 36415; 80053; 82550; 83690; 84443; 84484; 85025; 96361; 96374; 99284; J2470